=== PATIENT | male | born 1965 | race Caucasian/White ===

== ENCOUNTER 2024-05-11 05:41 | Inpatient (IN) ==
[2024-05-11 06:35] LABS: Basophils # (auto) 0.03 K/uL (0.00-0.20); Basophils % (auto) 0.4 %; Eosinophils # (auto) 0.02 K/uL (0.00-0.50); Eosinophils % (auto) 0.3 %; Hematocrit (blood only) 48.6 % (42.0-52.0); Hemoglobin 17.5 g/dl (14.0-18.0); Immature Granulocytes # (auto) 0.05 K/uL (0.01-0.20); Immature Granulocytes % (auto) 0.7 %; Lymphocytes % (auto) 13.7 %; Mean Corpuscular Hemoglobin 34.8 pg (25.0-34.0); Mean Corpuscular Volume 96.6 fL (80.0-100.0); Mean Platelet Volume 10.8 fL (9.4-12.4); Monocytes # (auto) 0.58 K/uL (0.11-0.59); Monocytes % (auto) 7.9 %; Neutrophils # (auto) 5.64 K/uL (1.40-6.50); Platelet Count 181 K/uL (130-400); RDW Coefficient of Variation 13.2 % (11.5-14.5); Red Blood Count 5.03 M/uL (4.70-6.10); White Blood Count 7.32 K/ul (4.8-10.8)
[2024-05-11 06:55] LABS: Calcium 9.8 mg/dl (8.6-10.3); Creatinine Clr Calc Pharmacy 101.4 ml/min; Potassium 3.6 mmol/L (3.5-5.1)
[2024-05-11 07:02] LABS: Troponin I High Sensitivity 7.4 pg/ml (0-20)
--- NOTE | 2024-05-11 07:05 | Emergency Department Note ---
Impression & Plan Acute pancreatitis, Acute upper abdominal pain, Vomiting ED Provider Note NAME: ODELL KUMAR AGE: 58 SEX: Male INFORMANT: Patient ED PROVIDER(S): Sidney Reeves MD CHIEF COMPLAINT: Abdominal pain PLAN: Disposition: Admitted Outpatient prescription management: none Referral: None MEDICAL DECISION MAKING: Patient presented because of abdominal pain. He had nausea and vomiting. Patient was treated with IV hydration, Zofran and Dilaudid. On reassessment he was doing better. Patient was also given Ativan secondary to his alcohol issues. Patient was treated with thiamine and folate. Patient was found to have a significant elevation of his lipase consistent with pancreatitis. LFTs were borderline. Patiently further evaluation and management in the hospital. BioFire testing was negative. I did consult with the [facility] hospitalist service and discussed case with Dr. Yin. We did discuss ordering an ultrasound of the gallbladder to facilitate his admission. I did do this. Patient was evaluated by the hospitalist service and admitted for further management. Care/management discussed with: apartment leasing manager Level of care consideration(s): After review of the information above and other included data, I feel the patient requires escalation of care to admission Triage Nursing notes: reviewed and agree them. Vital Signs: reviewed and remarkable for hypertension Additional History obtained from: none Chronic Medical/Social Conditions affecting care: Alcohol abuse Prior/ Outside/ External records reviewed: none Differential Diagnosis: Etiologies such as gastroenteritis, pancreatitis, food borne illness, infections, appendicitis, diverticulitis, inflammatory bowel disease, GI bleed, biliary pathology, as well as others were entertained. Diagnostics, independently interpreted by me: ECG: Twelve-lead ECG reveals sinus tachycardia [address] elevation or depression. Cardiac Monitoring: Cardiac monitoring ordered by me: The patient was placed on continuous cardiac monitoring and observed. It revealed a tachycardic sinus rhythm at 113 beats per minute without ectopy or evidence of dysrhythmia. Medical decision rules: none Imaging studies: CT scan of the abdomen pelvis reveals findings consistent with pancreatitis. I refer you to the EMR for further details. HPI: 58 year old Male arrives for evaluation of abdominal pain. This started yesterday and is persisting. The patient also notes the following associated symptoms, vomiting, nausea, bloating. The patient has found no relieving factors. Current pain is rated as 9/10. Pt denies LOC, headache, fevers, chills, diaphoresis, visual changes, neck pain, chest pain, breathing difficulties, back pain, melena, hematochezia, urinary symptoms, numbness, weakness, lymphadenopathy, rash, or other complaints. PAST MEDICAL HISTORY: See Below, denies PAST SURGICAL HISTORY: See Below, THR SOCIAL HISTORY: See Below, occ etoh HOME MEDICATIONS: See Below ALLERGIES: See Below VITALS: See Below PHYSICAL EXAMINATION: GENERAL: Awake, alert, mildly ill appearing, mild distress HEAD: Normocephalic, atraumatic. No edema. EYES: Normal conjunctiva. Sclera non-icteric. OROPHARYNX: Lips, tongue, and mucosa unremarkable. No erythema or exudate. NECK: Supple. Inspection normal. Non-tender. No nuchal rigidity. FROM. No adenopathy. RESPIRATORY: CTA bilaterally. No wheezes rales or rhonchi. Normal respiratory effort. CARDIAC: Borderline tachycardic rate. Normal rhythm. No murmurs. No rubs. GI: Soft, mildly distended. Epigastric tenderness to palpation. No rebound or guarding. MUSCULOSKELETAL: Atraumatic. No edema. NEURO: Normal sensorium. Speech normal. No sensory or motor deficits. SKIN: No rash or jaundice noted PROCEDURES: none CRITICAL CARE: none OBSERVATION NOTE: none Past Med/Surg History Problem List (Updated 05/11/24 @ 17:04 by Sidney Reeves MD) Transaminitis Alkaline phosphatase elevation Metabolic acidosis Hypertension Alcoholism /alcohol abuse Acute pancreatitis (Acute) Vomiting (Acute) Acute upper abdominal pain (Acute) Social History Smoking Status: Never smoker Tobacco Type: Smokeless Tobacco (Dip or Chew) Hx Alcohol Use: Yes Alcohol type: beer Hx Substance Use: No Preferred Language: Moldovan Communication Ability: Effective Investment Executive Required: No Beliefs That Will Affect Care: None Current Living Situation: Alone Feels Safe at Home: Yes Assistive Devices: None Allergies Allergies Allergy/AdvReac Type Severity Reaction Status Date / Time shellfish derived Allergy Severe Anaphylaxis Verified 05/11/24 08:44 Home Meds Home Medications Medication Instructions Recorded Confirmed amino acids (Amino Acid capsule) 1 cap PO DAILY 05/11/24 05/11/24 cholecalciferol (vitamin D3) 25 25 mcg PO DAILY 05/11/24 05/11/24 mcg (1,000 unit) tablet (Vitamin D3) multivitamin 1 tab PO DAILY 05/11/24 05/11/24 Results & Data (ED) Vital Signs Vital Signs - 24 hr 05/11/24 05:47 05/11/24 05:57 05/11/24 06:16 Temperature Temperature Source Pulse Rate 134 H 132 H 105 H Pulse Rate [Right Finger] Pulse Rhythm Regular Pulse Strength Normal Respiratory Rate 23 Respiratory Effort / Characteristics Non-Labored Spontaneous Respiratory Depth Normal Respiratory Pattern Regular Blood Pressure 183/146 H Blood Pressure [Right Arm] Blood Pressure Mean 158 Blood Pressure Mean [Right Arm] Blood Pressure Position Sitting Pulse Oximetry 96 96 Oxygen Delivery Method Room Air Room Air Sepsis Recent Fever Within 48 Hours No Sepsis New/Unexplained Change in Mental Status N/A Sepsis Action Taken by Nursing No Action Required 05/11/24 06:44 05/11/24 06:46 05/11/24 07:30 Temperature 36.4 C L 36.4 C L Temperature Source Oral Oral Pulse Rate Pulse Rate [Right Finger] 112 H 104 H Pulse Rhythm Pulse Strength Respiratory Rate 18 17 Respiratory Effort / Characteristics Respiratory Depth Normal Respiratory Pattern Blood Pressure Blood Pressure [Right Arm] 158/118 H 143/106 H Blood Pressure Mean Blood Pressure Mean [Right Arm] 131 118 Blood Pressure Position Pulse Oximetry 96 94 Oxygen Delivery Method Room Air Sepsis Recent Fever Within 48 Hours Sepsis New/Unexplained Change in Mental Status Sepsis Action Taken by Nursing Laboratory Data 05/11/24 06:02 05/11/24 14:43 Lab Results 05/11/24 05/11/24 Range/Units 06:00 06:02 WBC 7.32 (4.8-10.8) K/ul RBC 5.03 (4.70-6.10) M/uL Hgb 17.5 (14.0-18.0) g/dl Hct 48.6 (42.0-52.0) % MCV 96.6 (80.0-100.0) fL MCH 34.8 H (25.0-34.0) pg MCHC 36.0 (32.0-36.0) g/dL RDW Std Deviation 47.0 H (36.4-46.3) fL RDW Coeff of Ileana 13.2 (11.5-14.5) % Plt Count 181 (130-400) K/uL MPV 10.8 (9.4-12.4) fL Immature Gran % (Auto) 0.7 % Neut % (Auto) 77.0 % Lymph % (Auto) 13.7 % [place] % (Auto) 7.9 % Eos % (Auto) 0.3 % Baso % (Auto) 0.4 % Neut # (Auto) 5.64 (1.40-6.50) K/uL Lymph # (Auto) 1.00 L (1.20-3.40) K/uL [place] # (Auto) 0.58 (0.11-0.59) K/uL Eos # (Auto) 0.02 (0.00-0.50) K/uL Baso # (Auto) 0.03 (0.00-0.20) K/uL Immature Gran # (Auto) 0.05 (0.01-0.20) K/uL Sodium 135 L (136-145) mmol/L Potassium 3.6 (3.5-5.1) mmol/L Chloride 104 (98-107) mmol/L Carbon Dioxide 11 L (21-32) mmol/L Anion Gap 20 H (3-11) BUN 4 L (6-23) mg/dl Creatinine 0.99 (0.6-1.4) mg/dl Est Cr Clr Drug Dosing 101.4 ml/min eGFR 88.85 BUN/Creatinine Ratio 4.0 L (10-20) Glucose 130 H (70-99(Fasting)) mg/dl Calcium 9.8 (8.6-10.3) mg/dl Magnesium 1.8 (1.7-2.4) mg/dl Total Bilirubin 1.3 H (0.2-1.0) mg/dl AST 78 H (13-39) U/L ALT 103 H (7-52) U/L Alkaline Phosphatase 71 (34-104) U/L Troponin I High Sens 7.4 (0-20) pg/ml Total Protein 7.3 (6.0-8.3) gm/dl Albumin 3.7 (3.4-5.0) gm/dl Globulin 3.6 (2.5-4.0) gm/dl Albumin/Globulin Ratio 1.0 (0.9-2) Triglycerides 478 H (0-150) mg/dl Lipase 3343 H (11-82) U/L Adenovirus (PCR) Not Detected (NotDetected) B. pertussis DNA (PCR) Not Detected (NotDetected) B.parapertussis DNA PCR Not Detected (NotDetected) C. pneumoniae DNA (PCR) Not Detected (NotDetected) Coronavirus OC43 (PCR) Not Detected (NotDetected) Coronavirus HKU1 (PCR) Not Detected (NotDetected) Coronavirus 229E (PCR) Not Detected (NotDetected) SARS-CoV-2 (PCR) Not Detected (NotDetected) Coronavirus NL63 (PCR) Not Detected (NotDetected) Human Metapneumovir PCR Not Detected (NotDetected) Influenza Type A (PCR) Not Detected (NotDetected) Influenza Type B (PCR) Not Detected (NotDetected) M. pneumoniae (PCR) Not Detected (NotDetected) Parainfluenza 1 (PCR) Not Detected (NotDetected) Parainfluenza 2 (PCR) Not Detected (NotDetected) Parainfluenza 3 (PCR) Not Detected (NotDetected) Parainfluenza 4 (PCR) Not Detected (NotDetected) RSV (PCR) Not Detected (NotDetected) Entero/Rhino (PCR) Not Detected (NotDetected) Administered Medications Chlordiazepoxide HCl (Chlordiazepoxide Hcl 25 Mg Cap) 25 mg PO Q6H [facility] Stop: 05/12/24 04:01 Last Admin: 05/11/24 16:07 Dose: 25 mg Documented By: JUAN JOSE Admin: 05/11/24 10:35 Dose: 25 mg Documented By: AVNI Hydromorphone HCl (Hydromorphone Inj 0.5 Mg/0.5 Ml Syr) 0.5 mg IV Q4H PRN PRN Reason: Severe Pain (Scale 7, 8, 9,10) Stop: 05/25/24 11:34 Last Admin: 05/11/24 12:06 Dose: 0.5 mg Documented By: JUAN JOSE Lactated Ringer's (Lr) 1,000 mls @ 200 mls/hr IV .Q5H [facility] Stop: 05/12/24 08:29 Last Admin: 05/11/24 14:06 Dose: 200 mls/hr Documented By: JUAN JOSE Infusion: 05/11/24 14:06 Dose: Infused Documented By: JUAN JOSE Infusion: 05/11/24 10:40 Dose: 200 mls/hr Documented By: Admin: 05/11/24 09:35 Dose: 250 mls/hr Documented By: AVNI Pantoprazole Sodium (Protonix) 40 mg in 10 mls @ 5 mls/min IV BID [facility] Stop: 06/10/24 09:59 Last Admin: 05/11/24 10:01 Dose: 5 mls/min Documented By: AVNI Piperacillin Sod/Tazobactam Sod (Zosyn) 4.5 gm in 100 mls @ 25 mls/hr IV Q8H [facility]; Protocol Stop: 05/21/24 13:59 Last Admin: 05/11/24 14:05 Dose: 25 mls/hr Documented By: JUAN JOSE Sodium Bicarbonate 150 meq/ (Sterile Water) 1,150 mls @ 75 mls/hr IV .[id number] [facility] Stop: 06/10/24 09:59 Last Admin: 05/11/24 12:09 Dose: 75 mls/hr Documented By: JUAN JOSE Lorazepam (Lorazepam 2 Mg/1 Ml Vial) 2 mg IV UD PRN; Protocol PRN Reason: EtOH Withdrawal AWSS Score 8,9 Stop: 06/10/24 09:08 Last Admin: 05/11/24 16:19 Dose: 2 mg Documented By: JUAN JOSE Admin: 05/11/24 12:08 Dose: 2 mg Documented By: JUAN JOSE Multivitamins (Multivitamin Tab) 1 tab PO QAM [facility] Stop: 06/10/24 11:34 Last Admin: 05/11/24 12:09 Dose: Not Given Documented By: JUAN JOSE Discontinued Medications Hydralazine HCl (Hydralazine Hcl 20 Mg/Ml Vial) 5 mg IV NOW ONE Stop: 05/11/24 09:10 Last Admin: 05/11/24 09:36 Dose: 5 mg Documented By: AVNI Hydromorphone HCl (Hydromorphone Inj 0.5 Mg/0.5 Ml Syr) 0.5 mg IV Q15M PRN PRN Reason: Pain Stop: 05/25/24 07:04 Last Admin: 05/11/24 09:22 Dose: 0.5 mg Documented By: Admin: 05/11/24 07:16 Dose: 0.5 mg Documented By: AVNI Sodium Chloride (Nss) 1,000 mls @ 999 mls/hr IV .Q1H1M ONE Stop: 05/11/24 08:05 Last Infusion: 05/11/24 08:45 Dose: Infused Documented By: Admin: 05/11/24 07:16 Dose: 999 mls/hr Documented By: AVNI Sodium Chloride (Nss) 1,000 mls @ 200 mls/hr IV .Q5H [facility] Stop: 05/12/24 07:29 Last Admin: 05/11/24 08:43 Dose: Not Given Documented By: AVNI Thiamine HCl 200 mg/ Sodium (Chloride) 52 mls @ 210 mls/hr IV NOW STA Stop: 05/11/24 07:37 Last Infusion: 05/11/24 08:18 Dose: Infused Documented By: Admin: 05/11/24 07:51 Dose: 210 mls/hr Documented By: AVNI Folic Acid 1 mg/ Syringe 10 mls @ 5 mls/min IV NOW STA Stop: 05/11/24 07:24 Last Admin: 05/11/24 07:51 Dose: 5 mls/min Documented By: AVNI Piperacillin Sod/Tazobactam Sod (Zosyn) 4.5 gm in 100 mls @ 200 mls/hr IV NOW STA; Protocol Stop: 05/11/24 10:13 Last Infusion: 05/11/24 12:01 Dose: Infused Documented By: JUAN JOSE Admin: 05/11/24 10:01 Dose: 200 mls/hr Documented By: AVNI Ioversol (Optiray 320 100ml) 94 ml IV ONCE ONE Stop: 05/11/24 08:11 Last Admin: 05/11/24 08:11 Dose: 94 ml Documented By: LILY Lorazepam (Lorazepam 2 Mg/1 Ml Vial) 0.5 mg IV NOW STA Stop: 05/11/24 07:24 Last Admin: 05/11/24 07:42 Dose: 0.5 mg Documented By: AVNI Ondansetron HCl (Ondansetron Inj 2 Mg/Ml 2 Ml Vial) 4 mg IV NOW STA Stop: 05/11/24 07:06 Last Admin: 05/11/24 07:16 Dose: 4 mg Documented By: AVNI Imaging Data Radiologist's Impression: Abdomen/Pelvis CT 05/11/24 07:[address] WITH IV CONTRAST CT DOSE: 1565.86 mGy.cm HISTORY: Acute upper abdominal pain patient with history of acute pancreatitis pancreatitis, upper abd pain TECHNIQUE: Multiaxial CT images of the abdomen and pelvis were performed following the IV administration of 94 cc of Optiray, A dose lowering technique was utilized adhering to the principles of ALARA. COMPARISON STUDY: None. FINDINGS: Cardiomegaly with coronary artery calcifications. Mild subsegmental bibasilar atelectasis. No pneumatosis or pneumoperitoneum. Hepatomegaly with hepatic steatosis. Patency of the hepatic and portal veins. Unremarkable spleen and adrenal glands. Mild gallbladder wall thickening. No cholelithiasis or biliary ductal dilation. Unremarkable kidneys. No hydronephrosis. Subcentimeter hypodense focus of the superior pole right kidney, too small to characterize. Decompressed urinary bladder with wall thickening. Pelvic structures are partially obscured by the total joint arthroplasties of the hips. Small fat filled inguinal hernias. Atherosclerosis of the aorta without aneurysm. Subcentimeter retroperitoneal lymph nodes. 1.1 x 1.0 cm nodules in the upper abdomen image 91 series 3 is suggestive of an additional lymph node. No bowel obstruction. There is mild wall thickening noted within the distal stomach and duodenum. No bowel obstruction. Colonic diverticulosis without acute diverticulitis. Trace abdominal ascites. There is interstitial and peripancreatic edema with homogeneous enhancement of the pancreas. No pancreatic ductal dilation or peripancreatic fluid collection. No acute fracture. Minimal superior endplate compression at T12 is likely chronic IMPRESSION: 1. Findings compatible with acute interstitial edematous pancreatitis. No pancreatic ductal dilation or acute peripancreatic fluid collections. 2. Reactive edema within the lesser sac/mesentery with trace abdominal pelvic ascites. 3. Wall thickening of the distal stomach and duodenum is likely reactive. A primary duodenitis/gastritis considered less likely. 4. No bowel obstruction or pneumoperitoneum. 5. Hepatomegaly with hepatic steatosis. 6. Normal appendix. ACT 112: Negative or not required by law. The above report was generated using voice recognition software. It may contain grammatical, syntax or spelling errors. Electronically signed by: Catalino Lei M.D. 05/11/2024 8:38 AM Gallbladder Ultrasound 05/11/24 08:27 ABDOMINAL ULTRASOUND, RIGHT UPPER QUADRANT HISTORY: Acutely elevated LFTs pancreatitis, elevated LFTs. COMPARISON: CT of same day FINDINGS: Pancreas: The pancreas is mostly obscured by bowel gas. Liver: Increased echogenicity measuring up to 20 cm in length. No marginal nodularity or mass. Gallbladder: Borderline wall thickening measuring up to 3 mm. No shadowing cholelithiasis. Negative sonographic Stinson's sign. No definite pericholecystic edema. CBD: 4 mm Right kidney: No hydronephrosis. IMPRESSION: 1. Nonspecific borderline gallbladder wall thickening without cholelithiasis. 2. Hepatic steatosis. 3. No biliary ductal dilation. 4. Please refer to the same day CT abdomen and pelvis study for discussion of the acute pancreatitis. ACT 112: Negative or not required by law. Electronically signed by: Catalino Lei M.D. 05/11/2024 10:25 AM Discharge Plan Visit Data Chief Complaint: Flu Like Symptoms Stated Complaint: ABD PAIN, SHAKEY, VOMITING, SWEATING ED Provider: Sidney Reeves Discharge Problem: Acute pancreatitis, Acute upper abdominal pain, Vomiting Patient Disposition: Admitted As Inpatient Discharge Instructions Interventions: ED Discharge Assessment Last Done: 05/11/24 09:51
[2024-05-11 07:12] LABS: Albumin Level 3.7 gm/dl (3.4-5.0); Bilirubin,Total 1.3 mg/dl (0.2-1.0); Globulin 3.6 gm/dl (2.5-4.0); Magnesium 1.8 mg/dl (1.7-2.4); Total Protein 7.3 gm/dl (6.0-8.3)
[2024-05-11 07:16] LABS: Adenovirus PCR Not Detected (NotDetected); Bordetella parapertussis PCR Not Detected (NotDetected); Bordetella pertussis PCR Not Detected (NotDetected); Chlamydia pneumoniae PCR Not Detected (NotDetected); Coronavirus 229E PCR Not Detected (NotDetected); Coronavirus CoV-2 (COVID19)PCR Not Detected (NotDetected); Coronavirus HKU1 PCR Not Detected (NotDetected); Coronavirus NL63 PCR Not Detected (NotDetected); Coronavirus OC43PCR Not Detected (NotDetected); Human Metapneumovirus PCR Not Detected (NotDetected); Influenza A PCR Not Detected (NotDetected); Influenza B PCR Not Detected (NotDetected); Mycoplasma pneumoniae PCR Not Detected (NotDetected); Parainfluenza Virus 1 PCR Not Detected (NotDetected); Parainfluenza Virus 2 PCR Not Detected (NotDetected); Parainfluenza Virus 3 PCR Not Detected (NotDetected); Parainfluenza Virus 4 PCR Not Detected (NotDetected); Respiratory Syncytial VirusPCR Not Detected (NotDetected); Rhinovirus/Enterovirus PCR Not Detected (NotDetected)
[2024-05-11] MEDS: ONDANSETRON INJ 2 MG/ML 2 ML VIAL IV STA (07:16)
[2024-05-11] MEDS: SODIUM CHLORIDE 0.9% 1,000 ML IV ONE (07:16)
[2024-05-11] MEDS: HYDROmorphone INJ 0.5 MG/0.5 ML SYR IV PRN ×2 (07:16→12:06)
[2024-05-11] MEDS: LORazepam 2 MG/1 ML VIAL IV STA ×3 (07:42→23:18)
[2024-05-11] MEDS: FOLIC ACID 1 MG in SYRINGE 9.8 ML IV STA (07:51)
[2024-05-11] MEDS: THIAMINE HCL 200 MG in SODIUM CHLORIDE 0.9% 50 ML IV STA (07:51)
[2024-05-11] MEDS: OPTIRAY 320 100ml IV ONE (08:11)
--- NOTE | 2024-05-11 08:41 | CT Scan Report ---
ABDOMEN AND PELVIS CT WITH IV CONTRAST CT DOSE: 1565.86 mGy.cm HISTORY: Acute upper abdominal pain patient with history of acute pancreatitis pancreatitis, upper a bd pain TECHNIQUE: Multiaxial CT images of the abdomen and pelvis were performed following the IV administrat ion of 94 cc of Optiray, A dose lowering technique was utilized adhering to the principles of ALARA. COMPARISON STUDY: None. FINDINGS: Cardiomegaly with coronary artery calcifications. Mild subsegmental bibasilar atelectasis. No pneumatosis or pneumoperitoneum. Hepatomegaly with hepatic steatosis. Patency of the hepatic and p ortal veins. Unremarkable spleen and adrenal glands. Mild gallbladder wall thickening. No cholelithia sis or biliary ductal dilation. Unremarkable kidneys. No hydronephrosis. Subcentimeter hypodense focu s of the superior pole right kidney, too small to characterize. Decompressed urinary bladder with wal l thickening. Pelvic structures are partially obscured by the total joint arthroplasties of the hips. Small fat filled inguinal hernias. Atherosclerosis of the aorta without aneurysm. Subcentimeter retr operitoneal lymph nodes. 1.1 x 1.0 cm nodules in the upper abdomen image 91 series 3 is suggestive of an additional lymph node. No bowel obstruction. There is mild wall thickening noted within the distal stomach and duodenum. No bowel obstruction. Colonic diverticulosis without acute diverticulitis. Trace abdominal ascites. Ther e is interstitial and peripancreatic edema with homogeneous enhancement of the pancreas. No pancreati c ductal dilation or peripancreatic fluid collection. No acute fracture. Minimal superior endplate co mpression at T12 is likely chronic IMPRESSION: 1. Findings compatible with acute interstitial edematous pancreatitis. No pancreatic ductal dilation or acute peripancreatic fluid collections. 2. Reactive edema within the lesser sac/mesentery with trace abdominal pelvic ascites. 3. Wall thickening of the distal stomach and duodenum is likely reactive. A primary duodenitis/gastri tis considered less likely. 4. No bowel obstruction or pneumoperitoneum. 5. Hepatomegaly with hepatic steatosis. 6. Normal appendix. ACT 112: Negative or not required by law. The above report was generated using voice recognition software. It may contain grammatical, syntax o r spelling errors. Electronically signed by: Catalino Lei M.D. 05/11/2024 8:38 AM
[2024-05-11] MEDS: SODIUM CHLORIDE 0.9% 1,000 ML IV SCH (08:43)
[2024-05-11] MEDS ORDERED: chlordiazePOXIDE ALCOHOL WITHDRAWL 25MG PO STA (09:09)
[2024-05-11] MEDS ORDERED: Ativan IV Alcohol Withdrawal--Active Protocol IV PRN (09:09)
[2024-05-11] MEDS ORDERED: LORazepam 1 MG/1 ML SYR ED Inj Use IV PRN (09:09)
[2024-05-11] MEDS ORDERED: LORazepam 2 MG/1 ML VIAL IV PRN (09:09)
--- NOTE | 2024-05-11 09:20 | History & Physical Report ---
Date of Service May 11, 2024 Assessment & Plan (1) Acute pancreatitis: Plan: likely secondary to alcoholism r/o Cholelithiasis r/o hypertriglyceridemia CT abd: 1. Findings compatible with acute interstitial edematous pancreatitis. No pancreatic ductal dilation or acute peripancreatic fluid collections. 2. Reactive edema within the lesser sac/mesentery with trace abdominal pelvic ascites. 3. Wall thickening of the distal stomach and duodenum is likely reactive. A primary duodenitis/gastritis considered less likely. 4. No bowel obstruction or pneumoperitoneum. 5. Hepatomegaly with hepatic steatosis. 6. Normal appendix. ACT 112: Negative or not required by law. LR 200cc/hr NPO PRN Morphine, Dilaudid Gallbladder US IV Zosyn monitor electrolytes closely GI consult (2) Metabolic acidosis: Plan: VBG stat: Bicarb 10, pH 7.19 Lactic acid: Negative Bicarb drip ordered (3) Alcoholism /alcohol abuse: Plan: Alc withdrawal protocol- Librium, Ativan PRN Monitor closely (4) Hypertension: Plan: PRN hydralazine Monitor closely History of Present Illness Primary Care Provider: Elena Kirkland MD 58-year-old male with no past medical history, presenting with abdominal pain. Patient states that he drinks 6-8 shots of alcohol about 3 times per week. Last drink was 2 days ago. Yesterday, patient started to have upper abdominal pain, pressure, which persisted till today. Denies fevers or chills, has intermittent nausea, no chest pain, shortness of breath, etc. Lipase 3000 CT abdomen pelvis: Acute interstitial edematous pancreatitis On exam, patient seen resting in bed, not in distress. Reports he still having upper epigastric and mid abdominal pain. Denies tremors, sweating, hallucinations, confusion. Allergies Allergy/AdvReac Type Severity Reaction Status Date / Time shellfish derived Allergy Severe Anaphylaxis Verified 05/11/24 08:44 Home Medications Medication Instructions Recorded Confirmed Type amino acids (Amino Acid capsule) 1 cap PO DAILY 05/11/24 05/11/24 History cholecalciferol (vitamin D3) 25 25 mcg PO DAILY 05/11/24 05/11/24 History mcg (1,000 unit) tablet (Vitamin D3) multivitamin 1 tab PO DAILY 05/11/24 05/11/24 History Past Med/Surg History Problem List (Updated 05/11/24 @ 15:22 by Fausto Vallecillo, DO) Transaminitis Alkaline phosphatase elevation Metabolic acidosis Hypertension Alcoholism /alcohol abuse Acute pancreatitis Vomiting (Acute) Acute upper abdominal pain (Acute) Social History Smoking Status: Never smoker Tobacco Type: Smokeless Tobacco (Dip or Chew) Hx Alcohol Use: Yes Alcohol type: beer Hx Substance Use: No Preferred Language: Kittitian Communication Ability: Effective Taxi Servicer Required: No Beliefs That Will Affect Care: None Current Living Situation: Alone Feels Safe at Home: Yes Assistive Devices: None Review of Systems Review of Systems: all noted and negative except for above Physical Exam Physical Exam: General- oriented x 3, not in distress, speaks in sentences with no effort or accessory muscle use Head- atraumatic Eyes- PERRL, EOMI, anicteric ENT- oropharynx clear Neck- supple, no JVD, no adenopathy, no thyromegaly; carotids +2/2, no bruits appreciated Lungs- clear to auscultation bilaterally, no rales/wheezes Heart- normal rate, regular rhythm; no murmur, no gallop, no rub appreciated Abdomen- normal bowel sounds, nondistended, soft, Mild epigastric tenderness,, no masses or hepatosplenomegaly Extremities- no pretibial edema, no calf tenderness; peripheral pulses intact Mild bilateral hand tremors Neuro- alert, oriented x 3; CN 2-12 grossly intact; motor 5/5 bilaterally;sensation 100% on all extremities; no other gross focal neurologic deficits Skin- warm & dry Results & Data Results & Data Vital Signs (Past 12 Hours) Vital Signs Temp Pulse Pulse Resp BP BP Pulse Ox 05/11/24 07:30 104 H 17 143/106 H 94 05/11/24 06:46 36.4 C L 112 H 18 158/118 H 96 05/11/24 06:44 36.4 C L 05/11/24 06:16 105 H 96 05/11/24 05:57 132 H 05/11/24 05:47 134 H 23 183/146 H 96 O2 Del Method 05/11/24 07:30 Room Air 05/11/24 06:46 05/11/24 06:44 05/11/24 06:16 Room Air 05/11/24 05:57 05/11/24 05:47 Room Air all noted and reviewed including below Code Status & VTE Plan VTE Prophylaxis Plan VTE Prophylaxis will be ordered: Yes
[2024-05-11 09:25] LABS: Base Excess VBG -16.7 mEq/L; HCO3 VBG 10 mmol/L; Oxygen Saturation VBG 98.8 %; PCO2 VBG 26 mmHg (38-50); PO2 VBG 103 mmHg; pH VBG 7.19 (7.36-7.41)
[2024-05-11 09:35] LABS: Appearance Urine Clear (Clear); Bacteria Urine Automated None Seen (None Seen); Bilirubin Urine Negative (Negative); Blood Urine Trace (Negative); Cast Urine Automated >20 /lpf (0-2); Color Urine Dark Yellow; Epithelial Cell Urine Auto 0-2 /hpf (0-2); Glucose Urine UA Negative (Negative); Granular Casts Urine Present /lpf (None Prsent); Hyaline Casts Urine Present /lpf (None Presnt); Ketones Urine 4+ (Negative); Leukocyte Esterase Urine Negative (Negative); Nitrite Urine Negative (Negative); Protein Urine 2+ (Negative); RBC Urine Automated 0-2 /hpf (0-2); Specific Gravity Urine > 1.045 (1.000-1.030); Urobilinogen Urine Negative (Negative); WBC Urine Automated 0-5 /hpf (0-5); pH Urine 5.5 (4.5-7.5)
[2024-05-11] MEDS: LACTATED RINGER'S 1,000 ML IV SCH (09:35)
[2024-05-11] MEDS: hydrALAZINE HCL 20 MG/ML VIAL IV ONE (09:36)
[2024-05-11] MEDS: 4.5GM X1 IV STA (10:01)
[2024-05-11] MEDS: PANTOprazole 40 MG/10 ML SYR IV SCH (10:01)
--- NOTE | 2024-05-11 10:26 | Ultrasound Report ---
ABDOMINAL ULTRASOUND, RIGHT UPPER QUADRANT HISTORY: Acutely elevated LFTs pancreatitis, elevated LFTs. COMPARISON: CT of same day FINDINGS: Pancreas: The pancreas is mostly obscured by bowel gas. Liver: Increased echogenicity measuring up to 20 cm in length. No marginal nodularity or mass. Gallbladder: Borderline wall thickening measuring up to 3 mm. No shadowing cholelithiasis. Negative s onographic Sitnson's sign. No definite pericholecystic edema. CBD: 4 mm Right kidney: No hydronephrosis. IMPRESSION: 1. Nonspecific borderline gallbladder wall thickening without cholelithiasis. 2. Hepatic steatosis. 3. No biliary ductal dilation. 4. Please refer to the same day CT abdomen and pelvis study for discussion of the acute pancreatitis. ACT 112: Negative or not required by law. Electronically signed by: Catalino Lei M.D. 05/11/2024 10:25 AM
[2024-05-11] MEDS: chlordiazePOXIDE HCl 25 MG CAP PO SCH (10:35)
--- OUTSIDE RECORDS SUMMARY | 2024-05-11 11:32 | External Medical Summary | Summary of Care ---
Author Name Unknown Organization [facility] Address [address] [place] [address] Phone [phone] Care Team Providers Care Flavoring Oil Filterer Name Role Phone Shilo Liao MD Primary Care Provider [phone] Reason for Referral * Evaluate & Treat - Unlimited Visits (Within 30 days (routine)) - Authorized Specialty Diagnoses / Procedures Referred By Contcherry t Referred To Contact Physical Therapy / Physical Medicine And Rehab Diagnoses Hip pain, right Shilo Liao MD [address] [place] [address] Referral ID Status Reason Start Date Expiration Date Visits Requested Visits Authorized [id number] Authorized Specialty Services Required 11/26/2023 999 999 Question Answer Referral Priority Within 30 days (routine) Where should this appointment be scheduled? [facility] Comments Right hip pain she thinks but it can be for both hips Reason for Visit * Reason Onset Date Comments Referral 11/26/2023 Encounter Details Date Type Department Care Team (Late st Contact Info) Description 11/26/2023 Telephone [facility] [address] [place] [address] Shilo Liao MD [address] [place] [address] Referral Allergies No known active allergiesdocumented as of this encounter (statuses as of 11/26/2023) Medications Medication Sig Dispensed Refills Start Date End Date Status Vitamin D3 1.25 MG (91113 UT) Oral CapsuleIndications: Low vitamin D level Take 1 Capsule by mouth once a week. 12 Capsule 1 09/07/2022 Active Calcium 500 MG Oral Tablet Take 1 Tablet by mouth in the morning and 1 Tablet before bedtime. With food.. 180 Tablet 3 09/07/2022 Active 27-0.8 MG Oral Tablet Take 1 Tablet by mouth daily at noon - take for 2 months after your surgery for anemia 60 Tablet 12/27/2022 Active Aspirin 81 MG Oral Tablet Delayed Release Take 1 Tablet by mouth in the morning and 1 Tablet before bedtime. 90 Tablet 12/27/2022 Active Docusate Sodium 100 MG Oral Capsule (Colace) Take 1 Capsule by mouth 2 times a day as needed for Constipation. 10 Capsule 12/27/2022 Active Naproxen 375 MG Oral Tablet (Naprosyn) Take 1 Tablet by mouth 2 times a day with morning and evening meals. 30 Tablet 12/27/2022 Active Acetaminophen 500 MG Oral Capsule Take 1 Capsule by mouth every 6 hours as needed for Pain, Mild or Pain, Moderate. 60 Capsule 12/27/2022 Active Omeprazole 20 MG Oral Capsule Delayed Release (PriLOSEC) Take 1 Capsule by mouth in the morning. Do not start before December 28, 2022. 30 Capsule 12/28/2022 Active oxyCODONE HCl 5 MG Oral Tablet (Oxy IR) Take 1 Tablet by mouth every 6 hours as needed for Pain, Severe. 30 Tablet 01/03/2023 Active Cyclobenzaprine HCl 10 MG Oral Tablet (Flexeril) Take 1 Tablet by mouth in the morning and 1 Tablet at noon and 1 Tablet before bedtime. 30 Tablet 01/03/2023 Active Rosuvastatin Calcium 10 MG Oral Tablet (Crestor)Indication s:Hyperlipidemia with target LDL less than 100 Take 1 Tablet by mouth in the morning. 30 Tablet 1 01/06/2023 Active Vitamin D3 50 MCG (2000 UT) Oral Tablet Take 1 Tablet by mouth in the morning. 90 Tablet 3 01/07/2023 Active methylPREDNISolone 4 MG Oral Tablet Therapy Pack (Medrol Dosepack) follow package directions 21 Tablet 02/07/2023 Active documented as of this encounter (statuses as of 11/26/2023) Active Problems Problem Noted Date Diagnosed Date Postoperative anemia due to acute blood loss S/P total right hip arthroplasty 12/27/2022 S/P total hip arthroplasty 09/14/2022 Class 1 obesity without seri ous comorbidity with body mass index (BMI) of 31.0 to 31.9 in adult 09/07/2022 Primary osteoarthritis of left hip 09/07/2022 Vitamin D deficiency 09/07/2022 Hyperlipidemia 09/07/2022 Essential tremor 08/25/2022 documented as of this encounter (statuses as of 11/26/2023) Immunizations Name Administration Dates Next Due TDAP (age 10 and older)(Boostrix) 06/23/2022 documented as of this encounter Social History Tobacco Use Types Packs/Day Years Used Date Smoking Tobacco: Former Cigarettes Passive Smoke Exposure: Past Smokeless Tobacco: Former Chew Alcohol Use Standard Drinks/Week Comments Yes 3 (1 standard drink = 0.6 oz pur e alcohol) occassionally Personal Safety Answer Date Recorded Do you feel unsafe or have concerns for your saf ety? No 12/26/2022 Do you have concerns for you r family's safety? (Household - for ages 0-17 years) Not on file 12/26/2022 Utilities Answer Date Recorded Do you have trouble paying y our heating, water, or electric bill? No 12/26/2022 Is your family able to pay t he heat, water, or electric bill? (Household - for ages 0-17 years) Not on file 12/26/2022 Does your family have access to good internet? (Household - for ages 0-17 years) Not on file 12/26/2022 Social Connections Answer Date Recorded How often do you feel lonely or isolated from those around you? (Adult - for ages 18 years and over) Not on file 09/18/2023 Transportation Needs Answer Date Record ed READ ONLY Do you have troubl e getting a ride to medical visits or work? Never True 12/26/2022 Does your family have a hard time getting a ride to doctors visits? (Household - for ages 0-17 years) Not on file 12/26/2022 Has lack of transportation k ept you from medical appointments, meetings, work, or from getting things needed for daily living? Check all that apply. (Adult - for ages 18 years and over) Not on file 12/26/2022 Do you (or your family) have trouble finding or paying for a ride (transportation)? (Household - for ages 0-17 years) Not on file 12/26/2022 Housing Stability Answer Date Recorded Do you currently live in a s helter or have no steady place to sleep at night? (Adult - for ages 18 years and over) Not on file 12/26/2022 READ ONLY Do you think you a re at risk of becoming homeless? No 12/26/2022 Does your family worry about paying for your home or becoming homeless? (Household - for ages 0-17 years) Not on file 0 12/26/2022 Are you homeless or worried that you might be in the future? (Adult - for ages 18 years and over) Not on file Are you (or your family) sujata eless or worried that you might be in the future? (Household - for ages 0-17 years) Not on file Food Insecurity Answer Date Recorded Do you need food for this week? No 12/26/2022 Are you able to get enough f ood for your family? (Household - for ages 0-17 years) Not on file 12/26/2022 Does your family need food t his week? (Household - for ages 0-17 years) Not on file 12/26/2022 Do you always have enough fo od for your family? (Household - for ages 0-17 years) Not on file 12/26/2022 Sex and Gender Information Value Date Recorded Sex Assigned at Not on file Gender Identity Not on file Sexual Orientation Not on file Job Start Date Occupation Industry Not on file Not on file Not on file documented as of this encounter Functional Status Functional Status Response Date of Assess ment Are you deaf or do you have serious difficulty h earing? No 12/26/2022 Are you blind or do you have serious difficulty seeing, even when wearing glasses? No 12/26/2022 Do you have serious difficul ty walking or climbing stairs? (5 years old or older) No 12/26/2022 Do you have difficulty dress ing or bathing? (5 years old or older) No 12/26/2022 Because of a physical, menta l, or emotional condition, do you have difficulty doing errands alone such as visiting a doctor s office or shopping? (15 years old or older) No 12/27/19 23 Cognitive Status Response Date of Assessm ent Because of a physical, menta l, or emotional condition, do you have serious difficulty concentrating, remembering, or making decisions? (5 years old or older) No 12/26/2022 documented as of this encounter Miscellaneous Notes * Telephone Encounter - Hollie Panchal OSA - 11/26/2023 1:28 PM EDT Faxed. 11/26/2023 * Telephone Encounter - Kendra Low RN - 11/26/2023 12:42 PM EDT Provider to address: NA Reason for Call: Referral Contact: Telephone Call Contact Type: Orders Provider In-Basket: Yes Outcome: PT referral signed and faxed Face to face time spent with Patient (minutes): 0 Total Time including non face to face (minutes): 10 * Telephone Encounter - Farrukh Hsu OSA - 11/26/2023 12:09 PM EDT Has the patient been seen for this problem? (Y/N)?: Alea from [facility] stated that she thinks so If No, an appt needs to be scheduled before a referral will be placed (exception: proceed with referral request if referral request is for a yearly routine appointment with speciality) Patient Name: Wes Barillas Patient Primary care provider: Shilo Liao MD Does this need to be an insurance referral (Y/N)?: Yes If Yes, does the insurance referral need to be placed into the [facility] system? [place] of preferred specialist: Hans Booth Type of specialist: Physical therapy [facility] Phone #: [phone] Specialist's Fax #: [phone] Reason for visit: Right hip pain she thinks but it can be for both hips Date of visit: TBD documented in this encounter Plan of Treatment Scheduled Referrals Name Type Priority Associated Diagnoses Orde r Schedule PHYSICAL THERAPY REFERRAL OP Referral Within 30 days (routine) Hip pain, right Ordered: 11/26/2023 Health Maintenance Due Date Last Done Comments Depression Screening 1978 HIV Screening 1981 Hepatitis C Screening 1984 Hepatitis B Vaccine (1 of 3 - 19+ 3-dose series) 1985 Cologuard 06/12/2011 Colonoscopy 06/12/2011 Colorectal Cancer Screening 06/12/2011 Fecal Occult Blood Test 06/12/2011 Sigmoidoscopy 06/12/2011 Zoster Vaccines (1 of 2) 2016 COVID-19 Vaccine (1 - 2022- season) 2022 Influenza Vaccine (FLU shot) (#1) 2023 Diabetes Screening 12/27/2025 12/27/2022, 0 12/26/2022, 12/26/2022, Additional history exists Lipid Panel 06/24/2027 06/23/2022 DTaP,Tdap,and Td Vaccines (2 - Td or Tdap) 06/23/2032 06/23/2022 HPV (Gardasil) Vaccine Aged Out No lo nger eligible based on patient's age to complete this topic MENINGOCOCCAL (MENACTRA/MENVEO) Aged Out No longer eligible based on patient's age to complete this topic Pneumococcal Vaccine: Pediatrics (0 to 5 Years) and At-Risk Patients (6 to 64 Years) Aged Out No longer eligible based on patient's age to complete this topic documented as of this encounter Medical Devices Implanted Type Area Tar Chaser Device Identifier Shelf Expiration Date Model / Serial / Lot Screw Bone 6.5x25mm - Sn/A - [id number] Implanted:Qty: 1 on 12/26/2022 by Mohit Russell MD at OR [facility] Screw Right: Hip GALO : ORTHOPAEDICS N/A 08/24/2026 8412-7906 / N/A / WYJH Screw Bone 6.5x25mm - Sn/A - [id number] Implanted:Qty: 1 on 12/26/2022 by Mohit Russell MD at OR [facility] Screw Right: Hip GALO : ORTHOPAEDICS N/A 08/03/2025 4538-7382 / N/A / YLCJ Acetabular Clusterhole Shell56 - [id number] Implanted:Qty: 1 on 09/14/2022 by Mohit Russell MD at OR [facility] Left: Hip GALO : ORTHOPAEDICS 06/22/2027 702-04-56F / / [id number] Hip Darinel Trident X3 El Rim 36 F - [id number] Implanted:Qty: 1 on 09/14/2022 by Mohit Russell MD at OR [facility] Left: Hip GALO : ORTHOPAEDICS 04/10/2026 743-00-36F / / [id number] Screw Bone 6.5x25mm - [id number] Implanted:Qty: 1 on 09/14/2022 by Mohit Russell MD at OR [facility] Left: Hip GALO : ORTHOPAEDICS 08/03/2025 1147-5933 / / YLCJ Screw Bone 6.5x25mm - [id number] Implanted:Qty: 1 on 09/14/2022 by Mohit Russell MD at OR [facility] Left: Hip GALO : ORTHOPAEDICS 11/24/2026 4816-1459 / / [id number] 6.5mm Low Profile Hex Screw 6 - [id number] Implanted:Qty: 1 on 09/14/2022 by Mohit Russell MD at OR [facility] Left: Hip GALO : ORTHOPAEDICS 01/28/2025 6607-1671 / / [id number] Insignia Hip Stem- High Offset Implanted:Qty: 1 on 09/14/2022 by Mohit Russell MD at OR [facility] Left: Hip GAOL 08/16/2026 4037-6634 / / [id number] Hip Hd Nk Alumina Mod D 36/0 - [id number] Implanted:Qty: 1 on 09/14/2022 by Mohit Russell MD at OR [facility] Left: Hip GALO : ORTHOPAEDICS 05/27/2027 6570-0-136 / / [id number] Insignia Hip Stem - High Offset Implanted:Qty: 1 on 12/26/2022 by Mohit Russell MD at OR [facility] Right: Hip GALO ORTHOPEDICS N/A 08/23/2027 4284-4294 / N/A / [id number] Hip Hd Nk Alumina Mod D 36/0 - Sn/A - [id number] Implanted:Qty: 1 on 12/26/2022 by Mohit Russell MD at OR [facility] Right: Hip GALO : ORTHOPAEDICS N/A 03/09/2027 6570-0-136 / N/A / [id number] Acetabular Clusterhole Shell56 - Sn/A - [id number] Implanted:Qty: 1 on 12/26/2022 by Mohit Russell MD at OR [facility] Right: Hip GALO : ORTHOPAEDICS N/A 09/19/2026 702-04-56F / N/A / [id number] Hip Darinel Trident X3 El Rim 36 F - Sn/A - [id number] Implanted:Qty: 1 on 12/26/2022 by Mohit Russell MD at OR [facility] Right: Hip GALO : ORTHOPAEDICS N/A 10/18/2027 743-00-36F / N/A / [id number] documented as of this encounter Visit Diagnoses Diagnosis Hip pain, right- Primary Pain in joint, pelvic region and thigh documented in this encounter Advance Directives * Full Code (Latest Code Status on File) Date Activated Date Inactivated Comments 12/26/2022 5:51 PM 12/27/2022 4:32 PM This order r eflects the patients wishes and were consensually agreed upon. Question Answer Comments Discussion of Advance Directives occurred with: Patient * Full Code Date Activated Date Inactivated Comments 09/14/2022 2:34 PM 09/16/2022 4:23 PM This order r eflects the patients wishes and were consensually agreed upon. Question Answer Comments Discussion of Advance Directives occurred with: Patient Care Teams Flavoring Oil Filterer Relationship Specialty Start Date End Date Shilo Liao MD [address] [place] [address] PCP - General Family Medicine 04/04/22 documented as of this encounter
--- OUTSIDE RECORDS SUMMARY | 2024-05-11 11:32 | External Medical Summary | Summary of Care ---
Author Name Unknown Organization [facility] Address [address] [place] [address] Phone [phone] Care Team Providers Care Special Events Fundraiser Name Role Phone Shilo Liao MD Primary Care Provider [phone] Reason for Referral * Evaluate & Treat - Unlimited Visits (Within 30 days (routine)) - Authorized Specialty Diagnoses / Procedures Referred By Contcherry t Referred To Contact Physical Therapy / Physical Medicine And Rehab Diagnoses Hip pain, right Shilo Liao MD [address] [place] [address] Referral ID Status Reason Start Date Expiration Date Visits Requested Visits Authorized [id number] Authorized Specialty Services Required 11/26/2023 999 999 Question Answer Referral Priority Within 30 days (routine) Where should this appointment be scheduled? Leo Comments Right hip pain she thinks but it can be for both hips Reason for Visit * Reason Onset Date Comments Referral 11/26/2023 Encounter Details Date Type Department Care Team (Late st Contact Info) Description 11/26/2023 Telephone [facility] [address] [place] [address] Shilo Liao MD [address] [place] [address] Referral Allergies No known active allergiesdocumented as of this encounter (statuses as of 11/26/2023) Medications Medication Sig Dispensed Refills Start Date End Date Status Vitamin D3 1.25 MG (17580 UT) Oral CapsuleIndications: Low vitamin D level [...] encounter Miscellaneous Notes * Telephone Encounter - Kendra Low RN [...] seen for this problem? (Y/N)?: Alea from [facility] stated that she thinks so If [...] referral need to be placed into the [facility] system? [place] of preferred specialist: [facility] Type of specialist: Physical therapy [facility] Phone #: [phone] Specialist's Fax #: [phone] Reason for visit: Right hip pain she [...] this encounter Medical Devices Implanted Type Area Print Finisher Device Identifier Shelf Expiration Date Model / Serial / Lot Screw Bone 6.5x25mm - Sn/A - [id number] Implanted:Qty: 1 on 12/26/2022 by Mohit Russell MD at OR [facility] Screw Right: Hip GALO : ORTHOPAEDICS N/A 08/24/2026 6203-1862 / N/A / WYJH Screw Bone 6.5x25mm - Sn/A - [id number] Implanted:Qty: 1 on 12/26/2022 by Mohit Russell MD at OR [facility] Screw Right: Hip GALO : ORTHOPAEDICS N/A 08/03/2025 4954-5291 / N/A / YLCJ Acetabular Clusterhole Shell56 - [id number] Implanted:Qty: 1 on 09/14/2022 by Mohit Russell MD at OR [facility] Left: Hip GALO : ORTHOPAEDICS 06/22/2027 702-04-56F / / [id number] Hip Darinel Trident X3 El Rim 36 F - [id number] Implanted:Qty: 1 on 09/14/2022 by Mohit Russell MD at OR [facility] Left: Hip GALO : ORTHOPAEDICS 04/10/2026 743-00-36F / / [id number] Screw Bone 6.5x25mm - [id number] Implanted:Qty: 1 on 09/14/2022 by Mohit Russell MD at OR [facility] Left: Hip GALO : ORTHOPAEDICS 08/03/2025 3378-1952 / / YLCJ Screw Bone 6.5x25mm - [id number] Implanted:Qty: 1 on 09/14/2022 by Mohit Russell MD at OR [facility] Left: Hip GALO : ORTHOPAEDICS 11/24/2026 4162-8351 / / VHZD 6.5mm Low Profile Hex Screw 6 - [id number] Implanted:Qty: 1 on 09/14/2022 by Mohit Russell MD at OR [facility] Left: Hip GALO : ORTHOPAEDICS 01/28/2025 2455-6657 / / [id number] Insignia Hip Stem- High Offset Implanted:Qty: 1 on 09/14/2022 by Mohit Russell MD at OR [facility] Left: Hip GALO 08/16/2026 5534-9983 / / [id number] Hip Hd Nk Alumina Mod D 36/0 - [id number] Implanted:Qty: 1 on 09/14/2022 by Mohit Russell MD at OR [facility] Left: Hip GALO : ORTHOPAEDICS 05/27/2027 6570-0-136 / / [id number] [place] Insignia Hip Stem - High Offset Implanted:Qty: 1 on 12/26/2022 by Mohit Russell MD at OR [facility] Right: Hip GALO ORTHOPEDICS N/A 08/23/2027 9198-1209 / N/A / [id number] Hip Hd Nk Alumina Mod D 36/0 - Sn/A - [id number] Implanted:Qty: 1 on 12/26/2022 by Mohit Russell MD at OR [facility] Right: Hip GALO : ORTHOPAEDICS N/A 03/09/2027 6570-0-136 / N/A / [id number] Acetabular Clusterhole Shell56 - Sn/A - [id number] Implanted:Qty: 1 on 12/26/2022 by Mohit Russell MD at OR [facility] Right: Hip GALO : ORTHOPAEDICS N/A 09/19/2026 702-04-56F / N/A / [id number] Hip Darinel Trident X3 El Rim 36 F - Sn/A - [id number] Implanted:Qty: 1 on 12/26/2022 by Mohit Russell MD at OR [facility] Right: Hip GALO : ORTHOPAEDICS N/A [...] Advance Directives occurred with: Patient Care Teams Special Events Fundraiser Relationship Specialty Start Date End Date Shilo Liao MD [address], [place] [id number] PCP - General Family Medicine 04/04/22 documented as of this encounter
--- OUTSIDE RECORDS SUMMARY | 2024-05-11 11:32 | External Medical Summary | Summary of Care ---
Author Name Unknown Organization [facility] Address [address] [place] [address] Phone [phone] Care Team Providers Care Filler Feeder Name Role Phone Shilo Liao MD Primary Care Provider [phone] Encounter Details Date Type Department Care Team ([facility] Contact Info) Description 04/21/2024 Population Health External Data Unspecified Department Allergies No known active allergiesdocumented as of this encounter (statuses as of 04/21/2024) Medications Vitamin D3 1.25 MG (91658 UT) Oral CapsuleIndicati ons:Low vitamin D level Take 1 Capsule by mouth once a week. 12 Capsule 1 3 Active Calcium 500 MG Oral Tablet Take 1 Tablet by mouth in the morning and 1 Tablet before bedtime. With food.. 180 Tablet 3 3 Active 27-0.8 MG Oral Tablet Take 1 Tablet by mouth daily at noon - take for 2 months after your surgery for anemia 60 Tablet 12/27/2022 11:21 AM EDT 3 Active Aspirin 81 MG Oral Tablet Delayed Release Take 1 Tablet by mouth in the morning and 1 Tablet before bedtime. 90 Tablet 12/27/2022 11:21 AM EDT 3 Active Docusate Sodium 100 MG Oral Capsule (Colace) Take 1 Capsule by mouth 2 times a day as needed for Constipation. 10 Capsule 12/27/2022 11:21 AM EDT 3 Active Naproxen 375 MG Oral Tablet (Naprosyn) Take 1 Tablet by mouth 2 times a day with morning and evening meals. 30 Tablet 12/27/2022 11:21 AM EDT 3 Active Acetaminophen 500 MG Oral Capsule Take 1 Capsule by mouth every 6 hours as needed for Pain, Mild or Pain, Moderate. 60 Capsule 12/27/2022 11:21 AM EDT 3 Active Omeprazole 20 MG Oral Capsule Delayed Release (PriLOSEC) Take 1 Capsule by mouth in the morning. Do not start before December 28, 2022. 30 Capsule 12/27/2022 11:21 AM EDT 3 Active oxyCODONE HCl 5 MG Oral Tablet (Oxy IR) Take 1 Tablet by mouth every 6 hours as needed for Pain, Severe. 30 Tablet 3 Active Cyclobenzaprine HCl 10 MG Oral Tablet (Flexeril) Take 1 Tablet by mouth in the morning and 1 Tablet at noon and 1 Tablet before bedtime. 30 Tablet 3 Active Rosuvastatin Calcium 10 MG Oral Tablet (Crestor)Indica tions:Hyperlipi demia with target LDL less than 100 Take 1 Tablet by mouth in the morning. 30 Tablet 1 3 Active Vitamin D3 50 MCG (2000 UT) Oral Tablet Take 1 Tablet by mouth in the morning. 90 Tablet 3 3 Active methylPREDNISol one 4 MG Oral Tablet Therapy Pack (Medrol Dosepack) follow package directions 21 Tablet 3 Active documented as of this encounter (statuses as of 04/21/2024) Active Problems Problem Noted Date Diagnosed Date [...] as of this encounter (statuses as of 04/21/2024) Immunizations Name Administration Dates Next Due TDAP [...] y our heating, water, or electric bill? (Adult - for ages 18 years and over) Not on file 12/27/2023 Is your family able to pay t he heat, water, or electric bill? (Household - for ages 0-17 years) Not on file 12/27/2023 Does your family have access to good internet? (Household - for ages 0-17 years) Not on file 12/27/2023 Social Connections Answer Date Recorded How often [...] 18 years and over) Not on file 3 Are you (or your family) sujata eless [...] Recorded Sex Assigned at Not on file Legal Sex Male 4:19 PM EST Gender Identity Not on file Sexual Orientation Not on file documented as of this encounter Functional Status * Are you deaf or do you have serious difficulty hearing? Answer Date of Assessment Author No 12/26/2022 6:28 PM Chante Griffith RN * Are you blind or do you have serious difficulty seeing, even when wearing glasses? Answer Date of Assessment Author No 12/26/2022 6:28 PM Chante Griffith RN * Do you have serious difficulty walking or climbing stairs? (5 years old or older) Answer Date of Assessment Author No 12/26/2022 6:28 PM Chante Griffith RN * Do you have difficulty dressing or bathing? (5 years old or older) Answer Date of Assessment Author No 12/26/2022 6:28 PM Chante Griffith RN * Because of a physical, mental, or emotional condition, do you have difficulty doing errands alone such as visiting a doctors office or shopping? (15 years old or older) Answer Date of Assessment Author No 12/26/2022 6:28 PM Chante Griffith RN documented as of this encounter Mental Status * Because of a physical, mental, or emotional condition, do you have serious difficulty concentrating, remembering, or making decisions? (5 years old or older) Answer Entry Date Author No 12/26/2022 6:28 PM Chante Griffith RN documented in this encounter Plan of Treatment Health Maintenance Due Date Last Done Comments Depression Screening 1978 HIV Screening 1981 Hepatitis C Screening 1984 Hepatitis B Vaccine (1 of 3 - 19+ 3-dose series) 1985 Cologuard 06/12/2011 Colonoscopy 06/12/2011 Colorectal Cancer Screening 06/12/2011 Fecal Occult Blood Test 06/12/2011 Sigmoidoscopy 06/12/2011 Pneumococcal Vaccine: 50+ Years (1 of 1 - PCV) 2016 Zoster Vaccines (1 of 2) 2016 COVID-19 Vaccine (1 - season) 2023 Influenza Vaccine (FLU shot) (#1) 2023 Diabetes Screening 12/27/2025 12/27/2022, 0 12/26/2022, 12/26/2022, Additional history exists Lipid Panel 06/24/2027 06/23/2022 DTap/Tdap Vaccines (2 - Td or Tdap) 06/23/2032 06/23/2022 HPV (Gardasil) Vaccine Aged Out No lo nger eligible based on patient's age to complete this topic MENINGOCOCCAL (MENACTRA/MENVEO) Aged Out No longer eligible based on patient's age to complete this topic Pneumococcal Vaccine: Pediatrics (0 to 5 Years) and At-Risk Patients (6 to 18 Years and 19+ Years) Aged Out No longer eligib le based on patient's age to complete this topic documented as of this encounter Medical Devices Implanted Type Area Cage Manager Device Identifier Shelf Expiration Date Model / Serial / Lot Screw Bone 6.5x25mm - Sn/A - [id number] Implanted:Qty: 1 on 12/26/2022 by Mohit Russell MD at OR [facility] Screw Right: Hip GALO : ORTHOPAEDICS N/A 08/24/2026 7599-5579 / N/A / WYJH Screw Bone 6.5x25mm - Sn/A - [id number] Implanted:Qty: 1 on 12/26/2022 by Mohit Russell MD at OR [facility] Screw Right: Hip GALO : ORTHOPAEDICS N/A 08/03/2025 7890-2434 / N/A / YLCJ Acetabular Clusterhole Shell56 - [id number] Implanted:Qty: 1 on 09/14/2022 by Mohit Russell MD at OR [facility] Left: Hip GALO : ORTHOPAEDICS 06/22/2027 702-04-56F / / [id number] Hip Darinel Trident X3 El Rim 36 F - [id number] Implanted:Qty: 1 on 09/14/2022 by Mohit Russell MD at OR [facility] Left: Hip GALO : ORTHOPAEDICS 04/10/2026 743-00-36F / / [id number] Screw Bone 6.5x25mm - [id number] Implanted:Qty: 1 on 09/14/2022 by Mohit Russell MD at OR [facility] Left: Hip GALO : ORTHOPAEDICS 08/03/2025 3108-2655 / / YLCJ Screw Bone 6.5x25mm - [id number] Implanted:Qty: 1 on 09/14/2022 by Mohit Russell MD at OR [facility] Left: Hip GALO : ORTHOPAEDICS 11/24/2026 1063-1900 / / VHZD 6.5mm Low Profile Hex Screw 6 - [id number] Implanted:Qty: 1 on 09/14/2022 by Mohit Russell MD at OR [facility] Left: Hip GALO : ORTHOPAEDICS 01/28/2025 5953-3990 / / [id number] Insignia Hip Stem- High Offset Implanted:Qty: 1 on 09/14/2022 by Mohit Russell MD at OR [facility] Left: Hip GALO 08/16/2026 4409-6948 / / [id number] Hip Hd Nk Alumina Mod D 36/0 - [id number] Implanted:Qty: 1 on 09/14/2022 by Mohit Russell MD at OR [facility] Left: Hip GALO : ORTHOPAEDICS 05/27/2027 6570-0-136 / / [id number] [place] Insignia Hip Stem - High Offset Implanted:Qty: 1 on 12/26/2022 by Mohit Russell MD at OR [facility] Right: Hip GALO ORTHOPEDICS N/A 08/23/2027 9255-8323 / N/A / [id number] Hip Hd Nk Alumina Mod D 36/0 - Sn/A - [id number] Implanted:Qty: 1 on 12/26/2022 by Mohit Russell MD at OR [facility] Right: Hip GALO : ORTHOPAEDICS N/A 03/09/2027 6570-0-136 / N/A / [id number] Acetabular Clusterhole Shell56 - Sn/A - [id number] Implanted:Qty: 1 on 12/26/2022 by Mohit Russell MD at OR [facility] Right: Hip GALO : ORTHOPAEDICS N/A 09/19/2026 702-04-56F / N/A / [id number] Hip Darinel Trident X3 El Rim 36 F - Sn/A - [id number] Implanted:Qty: 1 on 12/26/2022 by Mohit Russell MD at OR [facility] Right: Hip GALO : ORTHOPAEDICS N/A 10/18/2027 743-00-36F / N/A / [id number] documented as of this encounter Advance Directives * Full Code [...] Advance Directives occurred with: Patient Care Teams Filler Feeder Relationship Specialty Start Date End Date Shilo Liao MD PCP - General Family Medicine 04/04/22 documented as of this encounter
--- OUTSIDE RECORDS SUMMARY | 2024-05-11 11:32 | External Medical Summary | Summary of Care ---
Author Name Unknown Organization [facility] Address [address] [place] [address] Phone [phone] Care Team Providers Care Cigarette Examiner Name Role Phone Shilo Liao MD Primary Care Provider [phone] Encounter Details Date Type Department Care Team ([facility] st Contact Info) Description 01/02/2024 Telephone [facility] DEPT CLOSED - 03/20/24 [address] [place] [id number] Shilo Liao MD [address] [place] [id number] Allergies No known active allergiesdocumented as of this encounter (statuses as of 04/02/2024) Medications Vitamin D3 1.25 MG (80212 UT) Oral CapsuleIndicati ons:Low vitamin D level [...] as of this encounter (statuses as of 04/02/2024) Active Problems Problem Noted Date Diagnosed Date [...] as of this encounter (statuses as of 04/02/2024) Immunizations Name Administration Dates Next Due TDAP [...] of Assessment Author No 12/26/2022 6:28 PM EDT Chante Manning RN documented as of this encounter Mental Status * Because of a physical, mental, or emotional condition, do you have serious difficulty concentrating, remembering, or making decisions? (5 years old or older) Answer Entry Date Author No 12/26/2022 6:28 PM EDT Chante Manning RN documented in this encounter Miscellaneous Notes * Telephone Encounter - Nataliia Petit LPN - 01/02/2024 2:50 PM EDT Received Fax for BFPROVIDERS: Dr. Shilo Liao PT PLAN OF CARE/EVALUATION received from [facility] and FAXED documented in this encounter Plan of Treatment Health Maintenance Due Date Last Done Comments Depression Screening 1978 HIV Screening 1981 Hepatitis C Screening 1984 Hepatitis B Vaccine (1 of 3 - 19+ 3-dose series) 1985 Cologuard 06/12/2011 Colonoscopy 06/12/2011 Colorectal Cancer Screening 06/12/2011 Fecal Occult Blood Test 06/12/2011 Sigmoidoscopy 06/12/2011 Zoster Vaccines (1 of 2) 2016 COVID-19 Vaccine ( - season) 2023 Influenza Vaccine (FLU shot) [...] this encounter Medical Devices Implanted Type Area Securities Research Analyst Device Identifier Shelf Expiration Date Model / Serial / Lot Screw Bone 6.5x25mm - Sn/A - [id number] Implanted:Qty: 1 on 12/26/2022 by Mohit Russell MD at OR [facility] Screw Right: Hip PATTIE : ORTHOPAEDICS N/A 08/24/2026 7938-3651 / N/A / WYJH Screw Bone 6.5x25mm - Sn/A - [id number] Implanted:Qty: 1 on 12/26/2022 by Mohit Russell MD at OR [facility] Screw Right: Hip PATTIE : ORTHOPAEDICS N/A 08/03/2025 5526-1120 / N/A / YLCJ Acetabular Clusterhole Shell56 - [id number] Implanted:Qty: 1 on 09/14/2022 by oMhit Russell MD at OR [facility] Left: Hip PATTIE : ORTHOPAEDICS 06/22/2027 702-04-56F / / [id number] Hip Darinel Trident X3 El Rim 36 F - [id number] Implanted:Qty: 1 on 09/14/2022 by Mohit Russell MD at OR [facility] Left: Hip PATTIE : ORTHOPAEDICS 04/10/2026 743-00-36F / / [id number] Screw Bone 6.5x25mm - [id number] Implanted:Qty: 1 on 09/14/2022 by Mohit Russell MD at OR [facility] Left: Hip PATTIE : ORTHOPAEDICS 08/03/2025 7086-5804 / / YLCJ Screw Bone 6.5x25mm - [id number] Implanted:Qty: 1 on 09/14/2022 by Mohit Russell MD at OR [facility] Left: Hip PATTIE : ORTHOPAEDICS 11/24/2026 7524-7876 / / VHZD 6.5mm Low Profile Hex Screw 6 - [id number] Implanted:Qty: 1 on 09/14/2022 by Mohit Russell MD at OR [facility] Left: Hip PATTIE : ORTHOPAEDICS 01/28/2025 4951-7872 / / [id number] Insignia Hip Stem- High Offset Implanted:Qty: 1 on 09/14/2022 by Mohit Russell MD at OR [facility] Left: Hip PATTIE 08/16/2026 4229-2051 / / [id number] Hip Hd Nk Alumina Mod D 36/0 - [id number] Implanted:Qty: 1 on 09/14/2022 by Mohit Russell MD at OR [facility] Left: Hip PATTIE : ORTHOPAEDICS 05/27/2027 6570-0-136 / / [id number] [place] Insignia Hip Stem - High Offset Implanted:Qty: 1 on 12/26/2022 by Mohit Russell MD at OR [facility] Right: Hip PATTIE ORTHOPEDICS N/A 08/23/2027 1524-7311 / N/A / [id number] Hip Hd Nk Alumina Mod D 36/0 - Sn/A - [id number] Implanted:Qty: 1 on 12/26/2022 by Mohit Russell MD at OR [facility] Right: Hip PATTIE : ORTHOPAEDICS N/A 03/09/2027 6570-0-136 / N/A / [id number] Acetabular Clusterhole Shell56 - Sn/A - [id number] Implanted:Qty: 1 on 12/26/2022 by Mohit Russell MD at OR [facility] Right: Hip PATTIE : ORTHOPAEDICS N/A 09/19/2026 702-04-56F / N/A / [id number] Hip Darinel Trident X3 El Rim 36 F - Sn/A - [id number] Implanted:Qty: 1 on 12/26/2022 by Mohit Russell MD at OR [facility] Right: Hip PATTIE : ORTHOPAEDICS N/A 10/18/2027 743-00-36F / N/A [...] Advance Directives occurred with: Patient Care Teams Cigarette Examiner Relationship Specialty Start Date End Date Shilo Liao MD PCP - General Family Medicine 04/04/22 documented as of this encounter
--- OUTSIDE RECORDS SUMMARY | 2024-05-11 11:32 | External Medical Summary | Summary of Care ---
Author Name Unknown Organization [facility] Address [address] [place] [address] Phone [phone] Care Team Providers Care Yard Clerk Name Role Phone Shilo Liao MD Primary Care Provider [phone] Reason for Visit * Reason Onset Date Comments [facility]: Screening 12/27/2023 Encounter Details Date Type Department Care Team ([facility] Contact Info) Description 12/27/2023 Telephone [facility], [address] [address] Jessi Rogers, [facility] [address] [place] [address] [facility]: Screening Allergies No known active allergiesdocumented as of this encounter (statuses as of 12/27/2023) Medications Medication Sig Dispensed Refills Start Date End Date Status Vitamin D3 1.25 MG (94800 UT) Oral CapsuleIndications: Low vitamin D level [...] as of this encounter (statuses as of 12/27/2023) Active Problems Problem Noted Date Diagnosed Date [...] as of this encounter (statuses as of 12/27/2023) Immunizations Name Administration Dates Next Due TDAP [...] (15 years old or older) No 12/27/19 Cognitive Status Response Date of Assessm ent Because of a physical, menta l, or emotional condition, do you have serious difficulty concentrating, remembering, or making decisions? (5 years old or older) No 12/26/2022 documented as of this encounter Miscellaneous Notes * Telephone Encounter - Jessi Rogers LPN - 12/27/2023 11:37 AM EDT Wes Barillas was referred as a potential candidate for enrollment for [facility]. A review of this chart was completed and: Wes does not meet criteria for enrollment into [facility]. Referral Source: Monthly Proactive Eligibility List Criteria for Ineligibility: Not Located in Service Area Referring care team was notified via : Epic communication In area but does not have the chronic conditions for [facility] documented in this encounter Plan of Treatment [...] this encounter Medical Devices Implanted Type Area Derrick Follower Device Identifier Shelf Expiration Date Model / Serial / Lot Screw Bone 6.5x25mm - Sn/A - [id number] Implanted:Qty: 1 on 12/26/2022 by Mohit Russell MD at OR [facility] Screw Right: Hip GALO : ORTHOPAEDICS N/A 08/24/2026 3406-2870 / N/A / WYJH Screw Bone 6.5x25mm - Sn/A - [id number] Implanted:Qty: 1 on 12/26/2022 by Mohit Russell MD at OR [facility] Screw Right: Hip GALO : ORTHOPAEDICS N/A 08/03/2025 7185-8115 / N/A / YLCJ Acetabular Clusterhole Shell56 - [id number] Implanted:Qty: 1 on 09/14/2022 by Mohit Russell MD at OR [facility] Left: Hip GALO : ORTHOPAEDICS 06/22/2027 702-04-56F / / [id number] Hip Darinel Trident X3 El Rim 36 F - [id number] Implanted:Qty: 1 on 09/14/2022 by Mohit Russell MD at OR [facility] Left: Hip GALO : ORTHOPAEDICS 04/10/2026 743-00-36F / / [id number] Screw Bone 6.5x25mm - [id number] Implanted:Qty: 1 on 09/14/2022 by Mohit Russell MD at OR [facility] Left: Hip GALO : ORTHOPAEDICS 08/03/2025 4966-6211 / / YLCJ Screw Bone 6.5x25mm - [id number] Implanted:Qty: 1 on 09/14/2022 by Mohit Russell MD at OR [facility] Left: Hip GALO : ORTHOPAEDICS 11/24/2026 4299-5614 / / VHZD 6.5mm Low Profile Hex Screw 6 - [id number] Implanted:Qty: 1 on 09/14/2022 by Mohit Russell MD at OR [facility] Left: Hip GALO : ORTHOPAEDICS 01/28/2025 4429-9197 / / [id number] Insignia Hip Stem- High Offset Implanted:Qty: 1 on 09/14/2022 by Mohit Russell MD at OR [facility] Left: Hip GALO 08/16/2026 8947-1234 / / [id number] Hip Hd Nk Alumina Mod D 36/0 - [id number] Implanted:Qty: 1 on 09/14/2022 by Mohit Russell MD at OR [facility] Left: Hip GALO : ORTHOPAEDICS 05/27/2027 6570-0-136 / / [id number] [place] Insignia Hip Stem - High Offset Implanted:Qty: 1 on 12/26/2022 by Mohit Russell MD at OR [facility] Right: Hip GALO ORTHOPEDICS N/A 08/23/2027 6583-8559 / N/A / [id number] Hip Hd Nk Alumina Mod D 36/0 - Sn/A - [id number] Implanted:Qty: 1 on 12/26/2022 by Mohit Russell MD at OR [facility] Right: Hip GALO : ORTHOPAEDICS N/A 03/09/2027 6570-0-136 / N/A / [id number] Acetabular Clusterhole Shell56 - Sn/A - [id number] Implanted:Qty: 1 on 12/26/2022 by Mohit Russell MD at OR [facility] Right: Hip GALO : ORTHOPAEDICS N/A 09/19/2026 702-04-56F / N/A / [id number] Hip Darinel Trident X3 El Rim 36 F - Sn/A - [id number] Implanted:Qty: 1 on 12/26/2022 by Mohit Russell MD at OR [facility] Right: Hip GALO : ORTHOPAEDICS N/A 10/18/2027 [...] Advance Directives occurred with: Patient Care Teams Yard Clerk Relationship Specialty Start Date End Date Shilo Liao MD [address] [place] [address] PCP - General Family Medicine 04/04/22 documented as of this encounter
[2024-05-11] MEDS ORDERED: ONDANSETRON INJ 2 MG/ML 2 ML VIAL IV PRN (11:35)
[2024-05-11] MEDS ORDERED: MoRPHine SULFATE 4 MG/ML 1 ML CARP\\VIAL IV PRN (11:35)
[2024-05-11] MEDS: LORazepam 2 MG/1 ML VIAL IV PRN ×2 (12:08→18:08)
[2024-05-11] MEDS: MULTIVITAMIN TAB PO SCH (12:09)
[2024-05-11] MEDS: SODIUM BICARBONATE 8.4% 150 MEQ in WATER, STERILE 1,000 ML IV SCH (12:09)
[2024-05-11] MEDS: PIPERACILLIN/TAZOBACTAM 4.5 GM/100 ML BAG IV SCH (14:05)
--- NOTE | 2024-05-11 15:12 | Gastrointestinal Consultation ---
Date of Consultation May 11, 2024 Assessment & Plan (1) Alcoholism /alcohol abuse: Advised patient to abstain from all alcohol as it is a known liver/pancreas toxin On prophylactic regimen for alcohol withdrawal (2) Alkaline phosphatase elevation: (3) Transaminitis: (4) Acute pancreatitis: Continue supportive care with IVF, narcotic analgesics and antiemetics Avoid all alcohol in the future Will follow clinical course and make further recommendations as needed. History of Present Illness Reason for Consultation: Acute Pancreatitis Attending Physician: Erwin Yin MD History of Present Illness 58 yo CM with chronic alcohol abuse who presented to the ER early this AM with complaints of epigastric abd pain for the past 24 hours with associated nausea and vomiting. Upon arrival to the ER, he was noted to have elevations in his AST 78 ALT 103 and BT of 1.3 as well as a lipase of 3343. He also had a RUQ US and CT abd/pelvis which showed cholelithiasis, but no evidence of acute cholecystitis or biliary ductal dilation. He does admit to drinking heavily and admits to "about a 6 pack per day." He was admitted, given IVF, narcotic analgesics, antiemetics and alcohol withdrawal protocol. At the time I saw the patient today, he noted a "little improvement." He states his abd pain had decreased from 9/10 in intensity to 7/10, and he denied any further nausea or vomiting. He denied any history of alcohol withdrawal and denies any inpatient stays for alcoholism. He had no further complaints. Allergies Allergy/AdvReac Type Severity Reaction Status Date / Time shellfish derived Allergy Severe Anaphylaxis Verified 05/11/24 08:44 Home Medications Medication Instructions Recorded Confirmed Type amino acids (Amino Acid capsule) 1 cap PO DAILY 05/11/24 05/11/24 History cholecalciferol (vitamin D3) 25 25 mcg PO DAILY 05/11/24 05/11/24 History mcg (1,000 unit) tablet (Vitamin D3) multivitamin 1 tab PO DAILY 05/11/24 05/11/24 History Patient History Social History Smoking Status: Never smoker Tobacco Type: Smokeless Tobacco (Dip or Chew) Hx Alcohol Use: Yes Alcohol type: beer Hx Substance Use: No Preferred Language: Icelandic Communication Ability: Effective Rn Rehab Required: No Beliefs That Will Affect Care: None Current Living Situation: Alone Feels Safe at Home: Yes Assistive Devices: None Review of Systems Review of Systems: All systems reviewed & are unremarkable except as noted in HPI & below Physical Exam Constitutional: + obese Eyes: + anicteric sclerae Neck: normal visual inspection Respiratory: normal respiratory effort, lungs clear to auscultation Cardiovascular: RRR, no murmur, no edema Gastrointestinal (Abdomen): Inspection/Auscultation: + abdomen distended and normal bowel sounds Percussion/Palpation: + abdomen tender and abdomen soft; no guarding and abdomen not rigid No appreciable HSM Skin: no rashes, warm and dry Psychiatric: Orientation: alert and oriented x 3 Results & Data Vital Signs (Past 12 Hours) Vital Signs Temp Pulse Pulse Resp BP BP Pulse Ox 05/11/24 12:29 115 H 05/11/24 11:52 05/11/24 11:45 36.9 C 107 H 20 163/104 H 97 05/11/24 09:51 110 H 19 175/122 H 97 05/11/24 09:31 109 H 19 190/125 H 94 05/11/24 07:30 104 H 17 143/106 H 94 05/11/24 06:46 36.4 C L 112 H 18 158/118 H 96 05/11/24 06:44 36.4 C L 05/11/24 06:16 105 H 96 05/11/24 05:57 132 H 05/11/24 05:47 134 H 23 183/146 H 96 O2 Del Method 05/11/24 12:29 05/11/24 11:52 Room Air 05/11/24 11:45 Room Air 05/11/24 09:51 Room Air 05/11/24 09:31 Room Air 05/11/24 07:30 Room Air 05/11/24 06:46 05/11/24 06:44 05/11/24 06:16 Room Air 05/11/24 05:57 05/11/24 05:47 Room Air PG Care Time/CCT Total # of Minutes Spent Total Time Spent with Patient: Total time spent is greater than 50% in coordination of care (as documented) at patient's floor/unit and/or counseling patient: Coding Level of Care Code 26284 IN/OBS CONSULT LVL 4,60M Diagnoses Alcoholism /alcohol abuse F10.20 Alkaline phosphatase elevation R74.8 Transaminitis R74.01 Acute pancreatitis K85.90
[2024-05-11 15:27] LABS: BUN Creatinine Ratio 4.3 (10-20); Calcium 9.1 mg/dl (8.6-10.3); Creatinine Clr Calc Pharmacy 106.7 ml/min
[2024-05-11] MEDS: hydrALAZINE HCL 20 MG/ML VIAL IV PRN (17:03)
[2024-05-11] MEDS: METOPROLOL TARTRATE 1 MG/ML VIAL IV STA ×3 (19:48→22:18)
--- NOTE | 2024-05-11 19:59 | XRay Report ---
EXAM: Radiograph of the Chest 1 View INDICATION: Lethargy and hypoxia. TECHNIQUE: Frontal view of the chest. COMPARISON: No relevant prior studies available. FINDINGS: Lungs and pleural spaces: No consolidation or pulmonary edema. No pleural effusion or pneumothorax. No pleural effusion or pneumothorax. Heart: Shape and configuration within normal limits allowing for technique. Mediastinum: Normal contour. Bones/joints: No fracture, erosion or dislocation. Soft tissues: No abnormality noted. No radiopaque foreign body noted. Vasculature: Shallow inspiration with vascular crowding. Slightly more prominent markings noted in the left base. Upper abdomen: No abnormality noted. IMPRESSION: Shallow inspiration with vascular crowding. Possible developing left basilar infiltrate. ACT 112: Negative or not required by law. Electronically signed by Charlee Burks 05-11-2024 7:59 PM
--- NOTE | 2024-05-11 19:59 | Communication Note ---
Date of Service: May 11, 2024 Overnight developments 05/11, 730P Patient tachycardic, with elevated SBP 1 40-1 90s since admission this a.m. Patient lethargic as per RN. Received IV narcotics and benzos for pancreatitis and alcohol withdrawal. AP Hypertensive urgency Alcohol withdrawal Likely chronic BP elevation given incidental finding of cardiomegaly on CT imaging Initiate losartan IV Lopressor every 6 hours RTC if patient unable to take p.o. meds safely for now. 05/12, 240AM RN voiced concerns regarding uncontrolled withdrawal symptoms at PCU. Recommended consideration for Precedex. Case discussed with ICU [facility]. She recommends holding maintenance IVF for now. ICU transfer orders placed after patient evaluated by ICU [facility].
[2024-05-11] MEDS: FUROSEMIDE INJ 20 MG/2 ML VIAL IV ONE (20:09)
[2024-05-11] MEDS: MAGNESIUM SULFATE / D5W 1 GM/100 ML BAG IV ONE (20:15)
[2024-05-11] MEDS ORDERED: oxyCODONE HCL IR 5 MG TAB (IMMEDIATE RELEASE) PO PRN (20:41)
[2024-05-11] MEDS ORDERED: ACETAMINOPHEN 500 MG TAB PO PRN (20:41)
[2024-05-11] MEDS: IPRATROPIUM BROMIDE NEB SOLN 0.02% 0.5MG/2.5ML VIAL INH STA (20:43)
[2024-05-11] MEDS: LEVALBUTEROL 1.25 MG/3 ML NEB NEB STA (20:43)
[2024-05-11 20:59] LABS: Base Excess VBG -8.4 mEq/L; HCO3 VBG 16 mmol/L; PCO2 VBG 31 mmHg (38-50); PO2 VBG 81 mmHg; pH VBG 7.33 (7.36-7.41)
--- NOTE | 2024-05-11 21:17 | Electrocardiogram Report ---
Test Reason : Blood Pressure : */* mmHG Vent. Rate : 116 BPM Atrial Rate : 116 BPM P-R Int : 152 ms QRS Dur : 80 ms QT Int : 340 ms P-R-T Axes : 57 -18 61 degrees QTcB Int : 472 ms Sinus tachycardia Cannot rule out Inferior infarct , age undetermined Possible Anterior infarct , age undetermined Abnormal ECG No previous ECGs available Confirmed by Tai Love ([id number]) on 05/11/2024 9:16:49 PM Referred By: REFERRED SELF Confirmed By: Tai Love
[2024-05-11 21:21] LABS: BUN Creatinine Ratio 4.1 (10-20); Calcium 8.8 mg/dl (8.6-10.3); Creatinine Clr Calc Pharmacy 103.4 ml/min; Potassium 3.7 mmol/L (3.5-5.1)
[2024-05-11] MEDS: POTASSIUM CHLORIDE / WTR 10 MEQ/100 ML PLCT IV SCH (22:24)
[2024-05-11] MEDS: METOPROLOL TARTRATE 1 MG/ML VIAL IV SCH (23:23)
[2024-05-12] MEDS ORDERED: METOPROLOL TARTRATE 1 MG/ML VIAL IV SCH
[2024-05-12] MEDS: METOPROLOL TARTRATE 1 MG/ML VIAL IV STA ×2 (00:38→02:57)
[2024-05-12] MEDS: LORazepam 2 MG/1 ML VIAL IV STA (02:57)
[2024-05-12] MEDS ORDERED: STAT IV Infusion **Titration per Protocol STA (03:15)
--- NOTE | 2024-05-12 03:33 | Critical Care Consultation ---
Date of Consultation May 12, 2024 Assessment & Plan (1) Acute pancreatitis: (2) Alcoholism /alcohol abuse: (3) Metabolic acidosis: Plan Reason Critically Ill: Possible ETOH withdrawal Hypoactive delirium vs. sedative effect of benzodiazepines vs. metabolic encephalopathy Fever 2/2 pancreatitis Acute interstitial edematous pancreatitis HAGMA, resolved (HCO3 GI loss vs starvation ketosis vs lactic acidosis) Neuro - [facility] ICU: Patient too sedate currently RASS GOAL 0 to -1 Ammonia WNL Wean Precedex to off Was on Librium taper but too sedate for PO Rx Ativan PRN but caution as his high NGUYEN score is likely secondary to hemodynamic changes in the setting of pancreatitis Cardiac - No acute concerns POCUS with extremely limited views - unable to visualize IVC or R heart. LV systolic function appears grossly intact MAP goal > 65mmHg TG 500 Reintroduce antihypertensives as clinically feasible Respiratory - Shallow breathing in light of abdominal pain, protuberant abdomen, somnolence ABG shows adequate ventilation and oxygenation SpO2 > 92% Possible L basilar infiltrate read on CXR, likely atelectasis. GI - Diet: Strict NPO pending improvement in neurologic status SUP: PPI Bowel regimen: Miralax when able to take PO Abdomen is tense but without signs of abdominal compartment syndrome RENAL/LYTES - Replete electrolytes as indicated Neves for accurate I/Os, can likely remove tomorrow or later today. Maintain net even to net negative Received adequate volume resuscitation. Bolus LR PRN. Encourage PO intake ENDO - BG 140-180 per SCCM guidelines ISS if needed while inpatient HEME - Leukocytosis is likely reactive ID - Fever secondary to pancreatitis. BC drawn and UA sent. CXR pending but no obvious infiltrate on my review. Will D/c abx today MRSA negative Procalcitonin pending, will likely be elevated in setting of inflammation LINES/TUBES/DRAINS - PIV x2 Neves (Day #1) DVT PROPHYLAXIS - Enoxaparin Disposition: ICU Patient's mother does not have a phone number on file and he has no other contacts in our system. I have personally spent 45 minutes of critical care time in the direct management of this patient. This is a life/limb threatening event. This includes time spent evaluating patient, direct bedside care, chart review, placing orders, interpretation of diagnostic studies, discussion with consultants, patient, and family members, as well as other required patient management activities. This time is exclusive of all separately billable procedures, and teaching time and separate from and in addition to any other critical care service time. Thank you for allowing us to participate in the care of this patient. Please refer to my attending physician's documentation for any further recommendations. Supervising Physician Co-Signing Physician Notes Patient seen and examined. EMR reviewed. Discussed with bedside critical care nurse as well as with overnight critical care [facility] and on multidisciplinary rounds. This morning the patient is somewhat obtunded and lethargic on Precedex. He is on a low-dose and this will be discontinued. He remains hemodynamically stable with improvement in his tachycardia but blood pressure is borderline. He is received about 5 to 6 L of crystalloid which may be under resuscitated given his body habitus and pancreatitis. Lipase is decreased significantly and his exam is reassuring. Discontinue acetaminophen given mildly abnormal LFTs. Reassuring that his blood gas and lactate are both normal. Unclear what to make of his procalcitonin. He is been initiated on broad-spectrum antibiotics but typically antimicrobials or not used for pancreatitis in the absence of necrotizing infection which does not appear to be present on his CT scan. Blood cultures from today are pending. Will repeat procalcitonin in the morning. Continue electrolyte replacement protocol. Will observe for issues related to agitation off the Precedex and may consider alternative agents such as phenobarbital needed. Okay to advance diet. Triglycerides were mildly elevated and will recheck in the a.m.. Unclear etiology for his significant anion gap acidosis on presentation however it appears to have cleared. Continue to follow closely. An additional 45 minutes in critical care time was spent in evaluation and management of life-threatening illness with significant possibility of clinical decline. History of Present Illness Reason for Consultation: ETOH withdrawal Requesting Physician: Lucas Attending Physician: Erwin Yin MD History of Present Illness Mr. Wes Barillas is a 58YOM with a history of ETOH dependence, tobacco dependence, morbid obesity who was admitted to [facility] the morning of 05/11/2024 due to pancreatitis attributed to ETOH. RUQ US ruled out cholestatic disease. TG only 500. He was fluid resuscitated and placed on bicarbonate infusion due to profound metabolic acidosis. Started on Librium taper and NGUYEN protocol. He received 1 dose of furosemide and placed back on IVF. Multiple doses of metoprolol tartrate were administered due to tachycardia without improvement. ICU was consulted for evaluation. Patient was seen in E452. He awakens to loud voice. Is oriented to only person. Falls back asleep quickly. Breathing is labored and shallow. He is tachycardic and mildly hypertensive. Saturating well on 4L NC. He was transferred to ICU for continuation of care. On arrival to ICU patient was noted to be febrile to 39.1C rectally. He was provided with IV Tylenol and ice packs. ROS unable to be obtained due to mentation. Allergies Allergy/AdvReac Type Severity Reaction Status Date / Time shellfish derived Allergy Severe Anaphylaxis Verified 05/11/24 08:44 Home Medications Medication Instructions Recorded Confirmed Type amino acids (Amino Acid capsule) 1 cap PO DAILY 05/11/24 05/11/24 History cholecalciferol (vitamin D3) 25 25 mcg PO DAILY 05/11/24 05/11/24 History mcg (1,000 unit) tablet (Vitamin D3) multivitamin 1 tab PO DAILY 05/11/24 05/11/24 History Patient History Social History Smoking Status: Never smoker Tobacco Type: Smokeless Tobacco (Dip or Chew) Hx Alcohol Use: Yes Alcohol type: beer Hx Substance Use: No Preferred Language: Eritrean Communication Ability: Effective Technology Training Associate Required: No Beliefs That Will Affect Care: None Current Living Situation: Alone Feels Safe at Home: Yes Assistive Devices: None Review of Systems Review of Systems: Unobtainable due to cognitive status Physical Exam Constitutional: + ill appearing, + altered mental status , + disheveled and + overweight Eyes: PERRL, conjunctivae normal, anicteric sclerae ENMT: Mouth: + dry oral mucous membranes Neck: trachea midline, no thyromegaly Respiratory: + labored breathing, + tachypneic and sy mmetric chest movement Auscultation: + diminished lung sounds; no rales, no rhonchi and no wheezes Cardiovascular: Rate/Rhythm: regular rhythm and + tachycardic Heart Sounds: no murmur Vessels: normal peripheral pulses; no JVD Gastrointestinal (Abdomen): Inspection/Auscultation: + hypoactive bowel sounds; no visible herniation, caput medusae absent and Cervantes-Tran sign absent Percussion/Palpation: + abdomen tender, + hepatomegaly and + dullness to percussion; no pulsatile mass and no fluid wave protuberant. POCUS shows minimal ascites Musculoskeletal: Head/Neck/Chest: normocephalic and head atraumatic Extremities: extremities normal to inspection; no cyanosis Skin: no rashes, warm and dry Neurologic: moves all extremities and + confused; no focal motor deficits Genitourinary: Buried penis. Neves in place draining milky turbid urine Results & Data Results & Data Vital Signs (Past 12 Hours) Vital Signs Temp Pulse Pulse Resp BP BP BP 05/12/24 02: 36.7 C 130 H 40 H 145/103 H 05/12/24 01:05 112 H 132/94 05/12/24 00:36 123 H 147/106 H 05/11/24 23:54 36.6 C 120 H 41 H 05/11/24 23:53 120 H 156/112 H 05/11/24 23:05 36.9 C 128 H 40 H 145/102 H 05/11/24 22:44 05/11/24 21:51 30 H 05/11/24 21:50 138 H 149/105 H 05/11/24 20:47 36.4 C L 125 H 35 H 146/106 H 05/11/24 20:00 104 H 145/98 H 05/11/24 19:48 145 H 05/11/24 18:34 36.9 C 134 H 16 154/109 H 05/11/24 17:03 161/120 H 05/11/24 16:23 124 H 05/11/24 15:58 36.9 C 124 H 25 H 160/113 H Pulse Ox O2 Del Method O2 Flow Rate 05/12/24 02:25 94 Nasal Cannula 4 05/12/24 01:05 05/12/24 00:36 05/11/24 23:54 98 Nasal Cannula 4 05/11/24 23:53 05/11/24 23:05 96 Nasal Cannula 4 05/11/24 22:44 Nasal Cannula 4 05/11/24 21:51 94 Nasal Cannula 4 05/11/24 21:50 93 Nasal Cannula 4 05/11/24 20:47 94 Nasal Cannula 4 05/11/24 20:00 05/11/24 19:48 05/11/24 18:34 92 Room Air 05/11/24 17:03 05/11/24 16:23 05/11/24 15:58 93 Room Air Laboratory Results Reviewed Diagnostic Findings Reviewed Medications Administered See MAR Coding Level of Care Code 14126 CRITICAL CARE EA ADD 30M Diagnoses Acute pancreatitis K85.90 Alcoholism /alcohol abuse F10.20 Metabolic acidosis E87.20 Time Spent (min) 45
[2024-05-12] MEDS: dexMEDEtomidine 200 MCG/50 ML BAG IV SCH (04:17)
[2024-05-12 04:26] LABS: Appearance Urine Turbid (Clear); Bacteria Urine Automated None Seen (None Seen); Bilirubin Urine 2+ (Negative); Blood Urine 2+ (Negative); Color Urine Orange; Glucose Urine UA Negative (Negative); Ketones Urine 1+ (Negative); Leukocyte Esterase Urine Trace (Negative); Nitrite Urine Negative (Negative); Protein Urine 2+ (Negative); Specific Gravity Urine 1.022 (1.000-1.030); Urobilinogen Urine Negative (Negative); pH Urine 5.5 (4.5-7.5)
[2024-05-12] MEDS: ACETAMINOPHEN 1000 MG/100 ML IV IV ONE (04:32)
[2024-05-12] MEDS: ACETAMINOPHEN 1,000 MG/100 ML VIAL IV STA (04:32)
[2024-05-12 04:41] LABS: Amorphous Sediment Urine Present (None Prsent)
[2024-05-12 04:59] LABS: Base Excess VBG -2.8 mEq/L; HCO3 VBG 22 mmol/L; Oxygen Saturation VBG 95.9 %; PCO2 VBG 37 mmHg (38-50); PO2 VBG 63 mmHg; pH VBG 7.38 (7.36-7.41)
[2024-05-12 05:10] LABS: Basophils # (auto) 0.05 K/uL (0.00-0.20); Basophils % (auto) 0.4 %; Eosinophils % (auto) 2.3 %; Hematocrit (blood only) 46.4 % (42.0-52.0); Immature Granulocytes # (auto) 0.24 K/uL (0.01-0.20); Immature Granulocytes % (auto) 1.8 %; Lymphocytes # (auto) 0.63 K/uL (1.20-3.40); Lymphocytes % (auto) 4.8 %; Mean Corpuscular Hemoglobin 34.4 pg (25.0-34.0); Mean Corpuscular Hgb Conc 36.6 g/dL (32.0-36.0); Mean Corpuscular Volume 93.9 fL (80.0-100.0); Monocytes # (auto) 0.66 K/uL (0.11-0.59); Neutrophils # (auto) 11.24 K/uL (1.40-6.50); Neutrophils % (auto) 85.7 %; Platelet Count 156 K/uL (130-400); RDW Coefficient of Variation 13.4 % (11.5-14.5); RDW Standard Deviation 46.2 fL (36.4-46.3); Red Blood Count 4.94 M/uL (4.70-6.10); White Blood Count 13.12 K/ul (4.8-10.8)
[2024-05-12 05:21] LABS: Anion Gap 8 (3-11); BUN Creatinine Ratio 5.1 (10-20); Blood Urea Nitrogen 5 mg/dl (6-23); Calcium 8.7 mg/dl (8.6-10.3); Carbon Dioxide 21 mmol/L (21-32); Chloride 106 mmol/L (98-107); Creatinine Clr Calc Pharmacy 102.4 ml/min; Glucose 179 mg/dl (70-99(Fasting)); Potassium 3.7 mmol/L (3.5-5.1); Sodium 135 mmol/L (136-145)
[2024-05-12 05:24] LABS: Alanine Aminotransferase 69 U/L (7-52); Albumin Level 3.1 gm/dl (3.4-5.0); Alkaline Phosphatase 64 U/L (34-104); Aspartate Aminotransferase 60 U/L (13-39); Bilirubin Direct 0.9 mg/dl (0-0.2); Bilirubin,Total 1.7 mg/dl (0.2-1.0); Lipase 446 U/L (11-82); Magnesium 1.6 mg/dl (1.7-2.4); Phosphorus < 1.0 mg/dl (2.5-4.9); Total Protein 6.2 gm/dl (6.0-8.3)
[2024-05-12] MEDS: ICU ELECTROLYTE REPLACEMENT PROTOCOL SCH (05:40)
[2024-05-12] MEDS ORDERED: SODIUM PHOSPHATE 3 MMOL/1 ML INFUSION IV STA ×2 (05:51→19:19)
[2024-05-12] MEDS: MAGNESIUM SULFATE / D5W 1 GM/100 ML BAG IV SCH (06:09)
[2024-05-12] MEDS: POTASSIUM CHLORIDE / WTR 10 MEQ/100 ML PLCT IV SCH (06:10)
[2024-05-12] MEDS: SODIUM PHOSPHATE 30 MMOL in SODIUM CHLORIDE 0.9% 500 ML IV STA (06:27)
--- NOTE | 2024-05-12 06:29 | XRay Report ---
EXAM: XR chest 1V portable CLINICAL HISTORY: Hypoxemia, possible pneumonia. TECHNIQUE: X-ray image of the chest obtained in 1 frontal projection. COMPARISON: No prior studies available for comparison. FINDINGS: Pulmonary Parenchyma: Prominent bilateral parahilar markings. No evidence of consolidation, collapse, or focal opacities. No pulmonary nodules identified. No evidence of pleural effusion or pleural thickening. Heart and Mediastinum: Heart size and shape are normal. No mediastinal widening or masses. No hilar or mediastinal lymphadenopathy. Bony Thorax: Bony thorax appears intact without fractures or deformities. Soft Tissues: Soft tissues overlying the chest wall are unremarkable. Suggestion of NG tube placement, not clearly visualised. IMPRESSION: 1. Prominent bilateral parahilar markings possibly bronchitis vs congestion. 2. No evidence of nodules or focal opacities. Electronically signed by Regulo Good 05-12-2024 06:29 AM
[2024-05-12] MEDS: LACTATED RINGER'S 1,000 ML IV SCH (07:19)
[2024-05-12] MEDS: ICU Protocol for HYPERglycemia SCH (07:25)
[2024-05-12] MEDS ORDERED: ICU Protocol for HYPERglycemia SCH (07:30)
[2024-05-12 07:34] LABS: Estimated Average Glucose 111 mg/dl; Hemoglobin A1C 5.5 % (4.5-5.6)
[2024-05-12] MEDS: ENOXAPARIN INJ 40 MG/0.4 ML SYR SQ SCH (07:59)
[2024-05-12] MEDS: FOLIC ACID 1 MG in SYRINGE 9.8 ML IV SCH (08:34)
[2024-05-12] MEDS: THIAMINE HCL 100 MG in SODIUM CHLORIDE 0.9% 50 ML IV SCH (08:34)
[2024-05-12] MEDS ORDERED: lisinopril 5 MG TAB PO SCH (09:00)
[2024-05-12] MEDS ORDERED: LOSARTAN POTASSIUM 25 MG TAB PO SCH (09:00)
[2024-05-12] MEDS: LACTATED RINGER'S 2,000 ML IV ONE (09:17)
[2024-05-12 09:50] LABS: iSTAT Allen Test Pass; iSTAT Art Bld Gas pCO2 Correct 40 mmHg (35-46); iSTAT Art Bld Gas pH Corrected 7.298 (7.35-7.45); iSTAT Arterial Blood Gas HCO3 19 meg/L (19-24); iSTAT Arterial Blood Gas pCO2 38 mmHg (35-46); iSTAT Arterial Blood Gas pH 7.31 (7.35-7.45); iSTAT Arterial Blood Gas pO2 79 mmHg (80-95); iSTAT Arterial Blood Gas pO2 C 85; iSTAT Carbon Dioxide 20 mmol/L (24-31); iSTAT Hematocrit 44 % (42-52); iSTAT Potassium 4.2 mmol/L (3.3-5.0); iSTAT Sample Type Arterial; iSTAT Site L Radial; iSTAT Sodium 135 mmol/L (135-144); iSTAT SpO2 98
[2024-05-12] MEDS ORDERED: CARBOHYDRATES FOR HYPOGLYCEMIA PO PRN (11:20)
[2024-05-12] MEDS ORDERED: GLUCOSE 40% GEL 15 GM TUBE PO PRN (11:20)
[2024-05-12] MEDS ORDERED: GLUCOSE 10 TAB/TUBE PO PRN (11:20)
[2024-05-12] MEDS ORDERED: GLUCAGON FOR INJ 1 MG VIAL SQ PRN (11:20)
[2024-05-12] MEDS ORDERED: DEXTROSE 50% 50 ML SYRINGE IV PRN (11:20)
[2024-05-12] MEDS: INSULIN ASPART PER UNIT CHARGE SC SCH (12:16)
[2024-05-12] MEDS: INSULIN ASPART PER UNIT CHARGE ONE (12:16)
[2024-05-12] MEDS ORDERED: ACETAMINOPHEN 1,000 MG/100 ML VIAL IV SCH (13:00)
[2024-05-12] MEDS ORDERED: chlordiazePOXIDE HCl 25 MG CAP PO SCH (14:00)
[2024-05-12] MEDS: PHENobarbital sodium 65 MG/ML VIAL IV STA (14:48)
[2024-05-12] MEDS: PHENobarbital PO Alcohol Withdrawal PO STA (14:48)
--- NOTE | 2024-05-12 14:57 | Gastroenterology Progress Note ---
Date of Service May 12, 2024 Assessment & Plan (1) Acute pancreatitis: (2) Alcoholism /alcohol abuse: Plan -Patient currently NPO due to pancreatitis as well as mental status -Continue IV fluid hydration, pain management, CIWA protocol for alcohol withdrawal -Continue to monitor LFTs -Would advise alcohol cessation Admission and Anticipated Discharge Date Admission Date: May 11, 2024 Supervising Physician Co-Signing Physician Notes EtOH pancreatitis. EtOH withdrawal. In the ICU. Management pain control IV fluids DT withdrawal protocol. Subjective Patient is a 58 yo male with pancreatitis (based on lipase & symptoms) due to alcohol use. Lipase trending down today. T bili 1.7, D bili 0.9, AST 60, ALT 69. Patient began withdrawing from alcohol overnight and is now in the ICU with DTs. Review of Systems Review of Systems: Unobtainable due to reduced consciousness Physical Exam Constitutional: + ill appearing Respiratory: normal respiratory effort Gastrointestinal (Abdomen): normal bowel sounds, soft, nontender, no hepatosplenomegaly Results & Data Results & Data Vital Signs (Past 12 Hours) Vital Signs Temp Pulse Resp BP Pulse Ox Pulse Ox O2 Del Method 05/12/24 14:48 130 H 41 H 154/105 H 05/12/24 14:00 154/105 H 05/12/24 13:54 38.8 C H 127 H 41 H 93 05/12/24 13:01 110/87 05/12/24 12:57 38.5 C H 122 H 18 91 05/12/24 12:00 144/87 H 05/12/24 12:00 38.3 C H 122 H 40 H 89 L 05/12/24 12:00 Nasal Cannula 05/12/24 11:00 146/97 H 05/12/24 11:00 38.1 C H 112 H 40 H 97 05/12/24 10:15 120/84 05/12/24 10:12 38.0 C H 100 H 30 H 97 05/12/24 10:03 38.0 C H 103 H 31 H 97 05/12/24 10:00 114/82 05/12/24 09:57 38.0 C H 105 H 35 H 98 05/12/24 09:45 117/81 05/12/24 09:45 38.0 C H 98 H 28 H 98 05/12/24 09:30 109/73 05/12/24 09:30 109/73 05/12/24 09:27 38.0 C H 103 H 30 H 97 05/12/24 09:16 108/77 05/12/24 09:09 38.0 C H 105 H 31 H 96 05/12/24 09:03 38.0 C H 97 H 31 H 96 05/12/24 09:00 100/70 05/12/24 09:00 100/70 05/12/24 08:57 38.0 C H 97 H 31 H 95 05/12/24 08:46 101/69 05/12/24 08:08 92/71 L 05/12/24 08:00 38.1 C H 100 H 31 H 98 05/12/24 08:00 Nasal Cannula 05/12/24 08:00 Nasal Cannula 05/12/24 07:39 38.1 C H 113 H 32 H 97 05/12/24 07:30 106/74 05/12/24 07:00 38.4 C H 110 H 28 H 96 05/12/24 07:00 104/78 05/12/24 06:45 101/76 05/12/24 06:45 38.4 C H 113 H 30 H 97 05/12/24 06:30 108/75 05/12/24 06:30 38.5 C H 113 H 28 H 90 05/12/24 06:00 113/80 05/12/24 06:00 38.7 C H 114 H 30 H 95 05/12/24 05:48 38.8 C H 112 H 30 H 96 05/12/24 05:45 110/81 05/12/24 05:45 110/81 05/12/24 05:30 38.9 C H 110 H 32 H 96 05/12/24 05:27 39.0 C H 112 H 30 H 95 05/12/24 05:18 Nasal Cannula 05/12/24 05:03 39.1 C H 120 H 35 H 90 05/12/24 05:00 100/81 05/12/24 05:00 100/05/12/24 05:00 10005/12/24 04:54 123 H 15 95 05/12/24 04:48 39.1 C H 122 H 39 H 96 05/12/24 04:33 39.1 C H 127 H 42 H 92 05/12/24 04:30 150/105 H 05/12/24 04:27 39.0 C H 135 H 50 H 93 05/12/24 04:21 39.0 C H 126 H 36 H 98 05/12/24 04:15 155/95 H 05/12/24 04:11 125 H 148/101 H 05/12/24 04:06 39.0 C H 128 H 44 H 96 05/12/24 04:00 148/101 H 05/12/24 04:00 148/101 H 05/12/24 03:52 149/108 H 05/12/24 03:27 97 05/12/24 03:27 125 H O2 Del Method O2 Flow Rate O2 Flow Rate 05/12/24 14:48 05/12/24 14:00 05/12/24 13:54 05/12/24 13:01 05/12/24 12:57 05/12/24 12:00 05/12/24 12:00 05/12/24 12:00 2 05/12/24 11:00 05/12/24 11:00 05/12/24 10:15 05/12/24 10:12 05/12/24 10:03 05/12/24 10:00 05/12/24 09:57 05/12/24 09:45 05/12/24 09:45 05/12/24 09:30 05/12/24 09:30 05/12/24 09:27 05/12/24 09:16 05/12/24 09:09 05/12/24 09:03 05/12/24 09:00 05/12/24 09:00 05/12/24 08:57 05/12/24 08:46 05/12/24 08:08 05/12/24 08:00 05/12/24 08:00 2 05/12/24 08:00 2 05/12/24 07:39 05/12/24 07:30 05/12/24 07:00 05/12/24 07:00 05/12/24 06:45 05/12/24 06:45 05/12/24 06:30 05/12/24 06:30 05/12/24 06:00 05/12/24 06:00 05/12/24 05:48 05/12/24 05:45 05/12/24 05:45 05/12/24 05:30 05/12/24 05:27 05/12/24 05:18 4 05/12/24 05:03 05/12/24 05:00 05/12/24 05:00 05/12/24 05:00 05/12/24 04:54 05/12/24 04:48 05/12/24 04:33 05/12/24 04:30 05/12/24 04:27 05/12/24 04:21 05/12/24 04:15 05/12/24 04:11 05/12/24 04:06 05/12/24 04:00 05/12/24 04:00 05/12/24 03:52 05/12/24 03:27 Nasal Cannula 2 05/12/24 03:27 PG Care Time/CCT Total # of Minutes Spent Total Time Spent with Patient: Total time spent is greater than 50% in coordination of care (as documented) at patient's floor/unit and/or counseling patient: Coding Level of Care Code 54110 SUB INP/OBS CARE 2/35MIN Diagnoses Acute pancreatitis K85.90 Alcoholism /alcohol abuse F10.20
[2024-05-12] MEDS: CHECK CLONIDINE PATCH PLACEMENT SCH (15:07)
[2024-05-12] MEDS: PHENobarbital sodium 65 MG/ML VIAL IV PRN (15:37)
[2024-05-12] MEDS ORDERED: PHENobarbital sodium 65 MG/ML VIAL IV STA ×2 (16:31→19:13)
--- NOTE | 2024-05-12 17:15 | Hospitalist Progress Note ---
Date of Service May 12, 2024 delayed entry date of service noted above Assessment & Plan (1) Acute pancreatitis: Plan: likely secondary to alcoholism r/o Cholelithiasis r/o hypertriglyceridemia CT abd: 1. Findings compatible with acute interstitial edematous pancreatitis. No pancreatic ductal dilation or acute peripancreatic fluid collections. 2. Reactive edema within the lesser sac/mesentery with trace abdominal pelvic ascites. 3. Wall thickening of the distal stomach and duodenum is likely reactive. A primary duodenitis/gastritis considered less likely. 4. No bowel obstruction or pneumoperitoneum. 5. Hepatomegaly with hepatic steatosis. 6. Normal appendix. ACT 112: Negative or not required by law. LR 200cc/hr NPO PRN Morphine, Dilaudid Gallbladder US IV Zosyn monitor electrolytes closely GI consult 05/13 Lipase improving Continue IV Zosyn (2) Metabolic acidosis: Plan: VBG stat: Bicarb 10, pH 7.19 Lactic acid: Negative Bicarb drip ordered Resolved (3) Alcoholism /alcohol abuse: Plan: Alcohol withdrawal Alc withdrawal protocol- Librium, Ativan PRN Monitor closely 05/12 Transition from Precedex to phenobarbital taper Monitor closely (4) Hypertension: Plan: PRN hydralazine Monitor closely Admission and Anticipated Discharge Date Admission Date: May 11, 2024 Subjective Follow-up for acute pancreatitis, alcohol withdrawal, etc. Events overnight noted, patient transferred to ICU in light of progressive alcohol withdrawal/DTs Status post Precedex, transition to phenobarbital Discussed with RN at the bedside Seen resting in bed, very lethargic, responds to verbal stimuli Answers a few questions Denies pain, shortness of breath Review of Systems Review of Systems: all noted and negative except for above Physical Exam 2 Physical Exam: General- Lethargic,not in distress, Breathing- no effort or accessory muscle use Eyes- anicteric Neck- no JVD Lungs- clear breath sounds bilaterally, no rales/wheezes Heart- Mild tachycardic rate, regular rhythm; no murmurs Abdomen- normal bowel sounds, nondistended, soft, nontender Extremities- no pretibial edema, no calf tenderness Neuro- Lethargic Skin- warm & dry Results & Data Results & Data Vital Signs (Past 12 Hours) Vital Signs Temp Pulse Resp BP Pulse Ox O2 Del Method O2 Del Method 05/12/24 17:08 135 H 42 H 160/105 H 05/12/24 16:15 140 H 32 H 145/95 H 05/12/24 16:07 145/95 H 05/12/24 16:06 39.4 C H 141 H 43 H 92 05/12/24 16:03 39.3 C H 141 H 16 90 05/12/24 16:00 138/75 05/12/24 15:57 39.3 C H 145 H 19 05/12/24 15:37 131 H 30 H 144/107 H 05/12/24 15:23 Nasal Cannula 05/12/24 15:23 Nasal Cannula 05/12/24 15:00 144/107 H 05/12/24 15:00 144/107 H 05/12/24 15:00 39.1 C H 131 H 21 91 05/12/24 14:48 130 H 41 H 154/105 H 05/12/24 14:00 154/105 H 05/12/24 13:54 38.8 C H 127 H 41 H 93 05/12/24 13:01 110/87 05/12/24 12:57 38.5 C H 122 H 18 91 05/12/24 12:00 144/87 H 05/12/24 12:00 38.3 C H 122 H 40 H 89 L 05/12/24 12:00 Nasal Cannula 05/12/24 11:00 146/97 H 05/12/24 11:00 38.1 C H 112 H 40 H 97 05/12/24 10:15 120/84 05/12/24 10:12 38.0 C H 100 H 30 H 97 05/12/24 10:03 38.0 C H 103 H 31 H 97 05/12/24 10:00 114/82 05/12/24 09:57 38.0 C H 105 H 35 H 98 05/12/24 09:45 117/81 05/12/24 09:45 38.0 C H 98 H 28 H 98 05/12/24 09:30 109/73 05/12/24 09:30 109/73 05/12/24 09:27 38.0 C H 103 H 30 H 97 05/12/24 09:16 108/77 05/12/24 09:09 38.0 C H 105 H 31 H 96 05/12/24 09:03 38.0 C H 97 H 31 H 96 05/12/24 09:00 100/70 05/12/24 09:00 100/70 05/12/24 08:57 38.0 C H 97 H 31 H 95 05/12/24 08:46 101/69 05/12/24 08:08 92/71 L 05/12/24 08:00 38.1 C H 100 H 31 H 98 05/12/24 08:00 Nasal Cannula 05/12/24 08:00 Nasal Cannula 05/12/24 07:39 38.1 C H 113 H 32 H 97 05/12/24 07:30 106/74 05/12/24 07:00 38.4 C H 110 H 28 H 96 05/12/24 07:00 104/78 05/12/24 06:45 101/76 05/12/24 06:45 38.4 C H 113 H 30 H 97 05/12/24 06:30 108/75 05/12/24 06:30 38.5 C H 113 H 28 H 90 05/12/24 06:00 113/80 05/12/24 06:00 38.7 C H 114 H 30 H 95 05/12/24 05:48 38.8 C H 112 H 30 H 96 05/12/24 05:45 110/81 05/12/24 05:45 110/81 05/12/24 05:30 38.9 C H 110 H 32 H 96 05/12/24 05:27 39.0 C H 112 H 30 H 95 05/12/24 05:18 Nasal Cannula O2 Flow Rate O2 Flow Rate 05/12/24 17:08 05/12/24 16:15 05/12/24 16:07 05/12/24 16:06 05/12/24 16:03 05/12/24 16:00 05/12/24 15:57 05/12/24 15:37 05/12/24 15:23 2 05/12/24 15:23 2 05/12/24 15:00 05/12/24 15:00 05/12/24 15:00 05/12/24 14:48 05/12/24 14:00 05/12/24 13:54 05/12/24 13:01 05/12/24 12:57 05/12/24 12:00 05/12/24 12:00 05/12/24 12:00 2 05/12/24 11:00 05/12/24 11:00 05/12/24 10:15 05/12/24 10:12 05/12/24 10:03 05/12/24 10:00 05/12/24 09:57 05/12/24 09:45 05/12/24 09:45 05/12/24 09:30 05/12/24 09:30 05/12/24 09:27 05/12/24 09:16 05/12/24 09:09 05/12/24 09:03 05/12/24 09:00 05/12/24 09:00 05/12/24 08:57 05/12/24 08:46 05/12/24 08:08 05/12/24 08:00 05/12/24 08:00 2 05/12/24 08:00 2 05/12/24 07:39 05/12/24 07:30 05/12/24 07:00 05/12/24 07:00 05/12/24 06:45 05/12/24 06:45 05/12/24 06:30 05/12/24 06:30 05/12/24 06:00 05/12/24 06:00 05/12/24 05:48 05/12/24 05:45 05/12/24 05:45 05/12/24 05:30 05/12/24 05:27 05/12/24 05:18 4 all noted and reviewed including below
[2024-05-12 18:49] LABS: BUN Creatinine Ratio 6.7 (10-20); Creatinine Clr Calc Pharmacy 96.5 ml/min; Potassium 3.7 mmol/L (3.5-5.1)
[2024-05-12 19:11] LABS: Magnesium 2.2 mg/dl (1.7-2.4); Phosphorus 1.3 mg/dl (2.5-4.9)
[2024-05-12] MEDS: SODIUM PHOSPHATE 30 MMOL in DEXTROSE 5% 500 ML IV ONE (19:41)
[2024-05-12] MEDS: THIAMINE HCL 200 MG in SODIUM CHLORIDE 0.9% 50 ML IV SCH (19:43)
[2024-05-13 04:56] LABS: Basophils # (auto) 0.05 K/uL (0.00-0.20); Basophils % (auto) 0.4 %; Eosinophils # (auto) 0.02 K/uL (0.00-0.50); Eosinophils % (auto) 0.2 %; Hematocrit (blood only) 42.2 % (42.0-52.0); Hemoglobin 15.3 g/dl (14.0-18.0); Immature Granulocytes # (auto) 0.23 K/uL (0.01-0.20); Immature Granulocytes % (auto) 1.8 %; Lymphocytes % (auto) 6.9 %; Mean Corpuscular Hemoglobin 35.3 pg (25.0-34.0); Mean Corpuscular Hgb Conc 36.3 g/dL (32.0-36.0); Mean Corpuscular Volume 97.2 fL (80.0-100.0); Mean Platelet Volume 10.6 fL (9.4-12.4); Monocytes # (auto) 0.77 K/uL (0.11-0.59); Monocytes % (auto) 5.9 %; Neutrophils # (auto) 11.16 K/uL (1.40-6.50); Neutrophils % (auto) 84.8 %; Platelet Count 146 K/uL (130-400); RDW Coefficient of Variation 13.5 % (11.5-14.5); RDW Standard Deviation 48.6 fL (36.4-46.3); Red Blood Count 4.34 M/uL (4.70-6.10); White Blood Count 13.13 K/ul (4.8-10.8)
[2024-05-13 05:01] LABS: Base Excess ABG 0.1 mEq/L (-9-1.8); HCO3 ABG 26 mmol/L (19-24); Oxygen Saturation ABG 99.1 % (90-95); PCO2 ABG 46 mmHg (35-46); PO2 ABG 105 mmHg (80-95); pH ABG 7.36 (7.35-7.45)
[2024-05-13 05:09] LABS: Allen Test Pos (Pos)
[2024-05-13] MEDS: PHENobarbital sodium 65 MG/ML VIAL IV PRN (05:25)
[2024-05-13 05:34] LABS: Albumin Level 2.7 gm/dl (3.4-5.0); BUN Creatinine Ratio 8.1 (10-20); Bilirubin Direct 0.8 mg/dl (0-0.2); Bilirubin,Total 1.4 mg/dl (0.2-1.0); Calcium 7.7 mg/dl (8.6-10.3); Creatinine Clr Calc Pharmacy 116.7 ml/min; Phosphorus 3.2 mg/dl (2.5-4.9); Potassium 3.6 mmol/L (3.5-5.1); Total Protein 5.5 gm/dl (6.0-8.3)
[2024-05-13] MEDS: POTASSIUM CHLORIDE / WTR 10 MEQ/100 ML PLCT IV SCH (06:46)
[2024-05-13] MEDS: MAGNESIUM SULFATE / D5W 1 GM/100 ML BAG IV ONE (06:46)
[2024-05-13] MEDS ORDERED: PHENobarbital sodium 65 MG/ML VIAL IV STA (08:52)
[2024-05-13] MEDS: PHENobarbitaL 30 MG TAB PO SCH (08:56)
--- NOTE | 2024-05-13 09:04 | Critical Care Progress Note ---
Date of Service May 13, 2024 Assessment & Plan (1) Acute pancreatitis: (2) Alcoholism /alcohol abuse: (3) Metabolic acidosis: Plan Impression: 58-year-old male with extensive history of alcohol abuse admitted with alcohol induced pancreatitis and transferred to ICU for alcohol withdrawal/delirium tremens 24-hour events: Patient transferred to the ICU. Precedex was turned off and he was transition to a phenobarbital protocol. He received 2 additional liters of crystalloid with improvement in his tachycardia. He remains obtunded. Recommendations: Neuro -still significantly agitated. He missed the third dose of his load last evening so we will give an additional 400 mg IV phenobarb now and transition him to the maintenance dose of 65 mg every 12 hours. Will use Haldol for breakthrough agitation. Continue high-dose thiamine and folate. If unable to control with phenobarb, will transition back to Precedex. Abstinence from alcohol in the future recommended Cardiac -tachycardia and hypertensive. Responded favorably to fluid administration. Continue maintenance fluids. May need albumin replacement. Continue Catapres TTS patch. Follow QTc Respiratory -splinting due to abdominal distention. Continue oxygen. No evidence of hypercapnia on blood gas. Will follow closely. GI -n.p.o. due to mental status. PPI in place. No signs of significant abdominal compartment syndrome currently (kidney numbers appropriate, respirations not compromised). Lipase decreasing down to normal. LFTs normalizing. If persistently febrile, may repeat abdominal ultrasound to see whether or not there is ascites that needs to be drained/sampled RENAL/LYTES -renal function normal. Replacing electrolytes as needed. Will replete calcium today. Acid-base status acceptable. Initiate low-dose diuretics when hemodynamically stable ENDO - glycemic control per protocol. HEME -no acute issues. ID -white blood cell count elevated and procalcitonin elevated of unclear etiology. Empirically placed on antibiotics in the form of Zosyn. Remains intermittently febrile. Blood cultures no growth to date. Procalcitonin decreasing today. Complete 3 days of empiric Zosyn LINES/TUBES/DRAINS - ASIF Neves (Day #1) DVT PROPHYLAXIS - Enoxaparin Disposition: ICU I have personally spent 45 minutes of critical care time in the direct management of this patient. This is a life/limb threatening event. This includes time spent evaluating patient, direct bedside care, chart review, placing orders, interpretation of diagnostic studies, discussion with consultants, patient, and family members, as well as other required patient management activities. This time is exclusive of all separately billable procedures, and teaching time and separate from and in addition to any other critical care service time. Thank you for allowing us to participate in the care of this patient. Will continue to follow with you Admission and Anticipated Discharge Date Admission Date: May 11, 2024 Subjective Patient seen and examined. EMR reviewed. Discussed with bedside critical care nurse and on multidisciplinary rounds as well as with critical care overnight CHAPO. Patient remains intermittently agitated. He is responding favorably to Review of Systems Review of Systems: Unobtainable due to reduced consciousness Physical Exam Constitutional: + ill appearing, + altered mental status , + disheveled and + overweight Eyes: PERRL, conjunctivae normal, anicteric sclerae ENMT: Mouth: + dry oral mucous membranes Neck: trachea midline, no thyromegaly Respiratory: + labored breathing, + tachypneic and sy mmetric chest movement Auscultation: + diminished lung sounds; no rales, no rhonchi and no wheezes Cardiovascular: Rate/Rhythm: regular rhythm and + tachycardic Heart Sounds: no murmur Vessels: normal peripheral pulses; no JVD Gastrointestinal (Abdomen): Inspection/Auscultation: + hypoactive bowel sounds; no visible herniation, caput medusae absent and Cervantes-Tran sign absent Percussion/Palpation: + abdomen tender, + hepatomegaly and + dullness to percussion; no pulsatile mass and no fluid wave No significant fluid wave Musculoskeletal: Head/Neck/Chest: normocephalic and head atraumatic Extremities: extremities normal to inspection; no cyanosis Skin: no rashes, warm and dry Neurologic: moves all extremities and + confused; no focal motor deficits Genitourinary: Buried penis. Neves in place draining milky turbid urine Results & Data Results & Data Vital Signs (Past 12 Hours) Vital Signs Temp Pulse Resp BP Pulse Ox Pulse Ox O2 Del Method 05/13/24 08:09 38.6 C H 115 H 34 H 96 05/13/24 08:01 147/103 H 05/13/24 08:00 Nasal Cannula 05/13/24 07:57 38.6 C H 113 H 27 H 95 05/13/24 07:00 38.7 C H 119 H 30 H 142/99 H 100 05/13/24 06:00 146/103 H 05/13/24 06:00 146/103 H 05/13/24 05:57 38.8 C H 119 H 37 H 93 05/13/24 05:25 132 H 32 H 147/98 H 05/13/24 05:05 147/98 H 05/13/24 05:05 147/98 H 05/13/24 05:03 38.3 C H 124 H 38 H 91 05/13/24 05:01 229/192 H 05/13/24 05:00 38.3 C H 126 H 28 H 91 05/13/24 04:09 38.2 C H 126 H 36 H 91 05/13/24 04:00 92 05/13/24 03:03 38.2 C H 127 H 30 H 91 05/13/24 03:01 162/98 H 05/13/24 03:01 162/98 H 05/13/24 03:01 162/98 H 05/13/24 02:45 38.3 C H 128 H 27 H 92 05/13/24 02:12 38.3 C H 128 H 24 93 05/13/24 02:00 149/104 H 05/13/24 02:00 149/104 H 05/13/24 01:57 38.3 C H 127 H 38 H 92 05/13/24 01:09 38.4 C H 124 H 33 H 91 05/13/24 01:00 140/103 H 05/13/24 01:00 140/103 H 05/13/24 00:30 38.6 C H 128 H 39 H 90 05/13/24 00:15 38.6 C H 131 H 26 H 92 05/13/24 00:00 165/102 H 05/13/24 00:00 91 05/12/24 23:51 38.6 C H 129 H 30 H 89 L 05/12/24 23:03 38.6 C H 132 H 33 H 90 05/12/24 23:00 150/111 H 05/12/24 23:00 150/111 H 05/12/24 23:00 150/111 H 05/12/24 22:57 38.5 C H 131 H 35 H 88 L 05/12/24 22:09 38.5 C H 132 H 39 H 89 L 05/12/24 22:00 152/98 H 05/12/24 21:36 38.2 C H 135 H 42 H 91 O2 Del Method O2 Flow Rate O2 Flow Rate 05/13/24 08:09 05/13/24 08:01 05/13/24 08:00 2 05/13/24 07:57 05/13/24 07:00 05/13/24 06:00 05/13/24 06:00 05/13/24 05:57 05/13/24 05:25 05/13/24 05:05 05/13/24 05:05 05/13/24 05:03 05/13/24 05:01 05/13/24 05:00 05/13/24 04:09 05/13/24 04:00 Nasal Cannula 4 05/13/24 03:03 05/13/24 03:01 05/13/24 03:01 05/13/24 03:01 05/13/24 02:45 05/13/24 02:12 05/13/24 02:00 05/13/24 02:00 05/13/24 01:57 05/13/24 01:09 05/13/24 01:00 05/13/24 01:00 05/13/24 00:30 05/13/24 00:15 05/13/24 00:00 05/13/24 00:00 Nasal Cannula 4 05/12/24 23:51 05/12/24 23:03 05/12/24 23:00 05/12/24 23:00 05/12/24 23:00 05/12/24 22:57 05/12/24 22:09 05/12/24 22:00 05/12/24 21:36 Critical Care Results & Data Vital Signs (Past 12 Hours) Vital Signs Temp Pulse Resp BP Pulse Ox Pulse Ox O2 Del Method 05/13/24 08:09 38.6 C H 115 H 34 H 96 05/13/24 08:01 147/103 H 05/13/24 08:00 Nasal Cannula 05/13/24 07:57 38.6 C H 113 H 27 H 95 05/13/24 07:00 38.7 C H 119 H 30 H 142/99 H 100 05/13/24 06:00 146/103 H 05/13/24 06:00 146/103 H 05/13/24 05:57 38.8 C H 119 H 37 H 93 05/13/24 05:25 132 H 32 H 147/98 H 05/13/24 05:05 147/98 H 05/13/24 05:05 147/98 H 05/13/24 05:03 38.3 C H 124 H 38 H 91 05/13/24 05:01 229/192 H 05/13/24 05:00 38.3 C H 126 H 28 H 91 05/13/24 04:09 38.2 C H 126 H 36 H 91 05/13/24 04:00 92 05/13/24 03:03 38.2 C H 127 H 30 H 91 05/13/24 03:01 162/98 H 05/13/24 03:01 162/98 H 05/13/24 03:01 162/98 H 05/13/24 02:45 38.3 C H 128 H 27 H 92 05/13/24 02:12 38.3 C H 128 H 24 93 05/13/24 02:00 149/104 H 05/13/24 02:00 149/104 H 05/13/24 01:57 38.3 C H 127 H 38 H 92 05/13/24 01:09 38.4 C H 124 H 33 H 91 05/13/24 01:00 140/103 H 05/13/24 01:00 140/103 H 05/13/24 00:30 38.6 C H 128 H 39 H 90 05/13/24 00:15 38.6 C H 131 H 26 H 92 05/13/24 00:00 165/102 H 05/13/24 00:00 91 05/12/24 23:51 38.6 C H 129 H 30 H 89 L 05/12/24 23:03 38.6 C H 132 H 33 H 90 05/12/24 23:00 150/111 H 05/12/24 23:00 150/111 H 05/12/24 23:00 150/111 H 05/12/24 22:57 38.5 C H 131 H 35 H 88 L 05/12/24 22:09 38.5 C H 132 H 39 H 89 L 05/12/24 22:00 152/98 H 05/12/24 21:36 38.2 C H 135 H 42 H 91 O2 Del Method O2 Flow Rate O2 Flow Rate 05/13/24 08:09 05/13/24 08:01 05/13/24 08:00 2 05/13/24 07:57 05/13/24 07:00 05/13/24 06:00 05/13/24 06:00 05/13/24 05:57 05/13/24 05:25 05/13/24 05:05 05/13/24 05:05 05/13/24 05:03 05/13/24 05:01 05/13/24 05:00 05/13/24 04:09 05/13/24 04:00 Nasal Cannula 4 05/13/24 03:03 05/13/24 03:01 05/13/24 03:01 05/13/24 03:01 05/13/24 02:45 05/13/24 02:12 05/13/24 02:00 05/13/24 02:00 05/13/24 01:57 05/13/24 01:09 05/13/24 01:00 05/13/24 01:00 05/13/24 00:30 05/13/24 00:15 05/13/24 00:00 05/13/24 00:00 Nasal Cannula 4 05/12/24 23:51 05/12/24 23:03 05/12/24 23:00 05/12/24 23:00 05/12/24 23:00 05/12/24 22:57 05/12/24 22:09 05/12/24 22:00 05/12/24 21:36 Lab & Micro Results (Past 24 Hours) RBC 4.34 M/uL (4.70-6.10) L 05/13/24 WBC 13.13 K/ul (4.8-10.8) H 05/13/24 Hgb 15.3 g/dl (14.0-18.0) 05/13/24 Hct 42.2 % (42.0-52.0) 05/13/24 MCV 97.2 fL (80.0-100.0) 05/13/24 MCH 35.3 pg (25.0-34.0) H 05/13/24 MCHC 36.3 g/dL (32.0-36.0) H 05/13/24 RDW Standard Deviation 48.6 fL (36.4-46.3) H 05/13/24 RDW Coefficient of Variation 13.5 % (11.5-14.5) 05/13/24 Plt Count 146 K/uL (130-400) 05/13/24 MPV 10.6 fL (9.4-12.4) 05/13/24 Neutrophils (%) (Auto) 84.8 % 05/13/24 Lymphocytes (%) (Auto) 6.9 % 05/13/24 Monocytes # (Auto) 0.77 K/uL (0.11-0.59) H 05/13/24 Eosinophils # (Auto) 0.02 K/uL (0.00-0.50) 05/13/24 Immature Granulocyte % (Auto) 1.8 % 05/13/24 Neutrophils # (Auto) 11.16 K/uL (1.40-6.50) H 05/13/24 Lymphocytes # (Auto) 0.90 K/uL (1.20-3.40) L 05/13/24 Monocytes # (Auto) 0.77 K/uL (0.11-0.59) H 05/13/24 Eosinophils # (Auto) 0.02 K/uL (0.00-0.50) 05/13/24 Basophils # (Auto) 0.05 K/uL (0.00-0.20) 05/13/24 Immature Granulocyte # (Auto) 0.23 K/uL (0.01-0.20) H 05/13 Na 138 mmol/L (136-145) 05/13/24 K 3.6 mmol/L (3.5-5.1) 05/13/24 Cl 107 mmol/L (98-107) 05/13/24 CO2 26 mmol/L (21-32) 05/13/24 Anion Gap 5 (3-11) 05/13/24 BUN 7 mg/dl (6-23) 05/13/24 Creatinine 0.86 mg/dl (0.6-1.4) 05/13/24 BUN/Creatinine Ratio 8.1 (10-20) L 05/13/24 Glu 176 mg/dl (70-99(Fasting)) H 05/13/24 Ca 7.7 mg/dl (8.6-10.3) L 05/13/24 Phosphorus Level 3.2 mg/dl (2.5-4.9) 05/13/24 Total Bilirubin 1.4 mg/dl (0.2-1.0) H 05/13/24 Direct Bilirubin 0.8 mg/dl (0-0.2) H 05/13/24 AST 37 U/L (13-39) 05/13/24 ALT 46 U/L (7-52) 05/13/24 Alkaline Phosphatase 59 U/L (34-104) 05/13/24 TP 5.5 gm/dl (6.0-8.3) L 05/13/24 Albumin 2.7 gm/dl (3.4-5.0) L 05/13/24 Mg 2.0 mg/dl (1.7-2.4) 05/13/24 04:38 Calcium Level 7.7 mg/dl (8.6-10.3) L 05/13/24 04:38 Arterial Blood pH 7.36 (7.35-7.45) 05/13/24 04:30 Arterial Blood Partial Pressure CO2 46 mmHg (35-46) 05/13/24 04 :30 Arterial Blood Partial Pressure O2 105 mmHg (80-95) H 05/13/24 04:30 Arterial Blood HCO3 26 mmol/L (19-24) H 05/13/24 04:30 Arterial Blood Base Excess 0.1 mEq/L (-9-1.8) 05/13/24 04:30 Arterial Blood Oxygen Saturation 99.1 % (90-95) H 05/13/24 04:3 0 Blood Gas Oxygen Given 6L 05/13/24 04:30 Inkos Test Pos (Pos) 05/13/24 04:30 Microbiology 05/12/24 04:34 Aerobic Blood Culture - Preliminary Blood No growth in Aerobic bottle after 24 hours. Anaerobic Blood Culture - Preliminary No growth in Anaerobic bottle after 24 hours. 05/12/24 04:34 Aerobic Blood Culture - Preliminary Blood No growth in Aerobic bottle after 24 hours. Anaerobic Blood Culture - Preliminary No growth in Anaerobic bottle after 24 hours. I & O Totals 24 Hours 05/12/24 05/13/24 05/14/24 06:59 06:59 06:59 Intake Total 5995.050 / 5995.050 6318.4119 / 6318.4119 422 / 422 Output Total 1025 / 1025 725 / 725 50 / 50 Balance 4970.050 / 4970.050 5593.4119 / 5593.4119 372 / 372 Cumulative 05/11/24 05:41 thru 05/13/24 08:33 Intake Total 68439.4619 Output Total 1800 Balance 19270.4619 RT Ventilator Mngmt (Last Documented) Ventilator Ordered Settings Respiratory Rate 34 05/13/24 08:09 Ventilator - PT Measurements Respiratory Rate 34 Coding Level of Care Code 06294 CRITICAL CARE 1ST 30-74M Diagnoses Acute pancreatitis K85.90 Alcoholism /alcohol abuse F10.20 Metabolic acidosis E87.20
[2024-05-13] MEDS: FUROSEMIDE INJ 20 MG/2 ML VIAL IV ONE (09:23)
[2024-05-13] MEDS: HALOPERIDOL LACTATE 5 MG/ML 1 ML VIAL IV PRN (09:23)
[2024-05-13] MEDS: CALCIUM GLUCONATE 1,000 MG/60 ML BAG IV SCH (09:24)
[2024-05-13] MEDS: ALBUMIN 25% 25 GM/100 ML VIAL IV SCH (09:24)
[2024-05-13] MEDS: PHENobarbital sodium 65 MG/ML VIAL IV SCH (09:56)
--- NOTE | 2024-05-13 11:30 | Communication Note ---
Date of Service: May 13, 2024 Patient is a 58 yo male in the ICU due to alcohol withdrawal. GI following for pancreatitis. Patient NPO due to sedation. Alcohol withdrawal protocol in place by primary team. IV fluid hydration is ongoing. No alarming LFT findings at present. GI will follow peripherally. If acute GI issues arise as patient becomes more alert & oriented, please re-consult GI.
--- NOTE | 2024-05-13 17:47 | Hospitalist Progress Note ---
Date of Service May 13, 2024 delayed entry date of service noted above Assessment & Plan (1) Acute pancreatitis: Plan: likely secondary to alcoholism r/o Cholelithiasis r/o hypertriglyceridemia CT abd: 1. Findings compatible with acute interstitial edematous pancreatitis. No pancreatic ductal dilation or acute peripancreatic fluid collections. 2. Reactive edema within the lesser sac/mesentery with trace abdominal pelvic ascites. 3. Wall thickening of the distal stomach and duodenum is likely reactive. A primary duodenitis/gastritis considered less likely. 4. No bowel obstruction or pneumoperitoneum. 5. Hepatomegaly with hepatic steatosis. 6. Normal appendix. ACT 112: Negative or not required by law. LR 200cc/hr NPO PRN Morphine, Dilaudid Gallbladder US IV Zosyn monitor electrolytes closely GI consult 05/13 Lipase improving Continue IV Zosyn 05/13 Lipase continues to improve On IV Zosyn (2) Metabolic acidosis: Plan: VBG stat: Bicarb 10, pH 7.19 Lactic acid: Negative Bicarb drip ordered Resolved (3) Alcoholism /alcohol abuse: Plan: Alcohol withdrawal Alc withdrawal protocol- Librium, Ativan PRN Monitor closely 05/12 Transition from Precedex to phenobarbital taper Monitor closely 05/13 Still febrile On IV phenobarbital taper (4) Hypertension: Plan: PRN hydralazine Monitor closely Admission and Anticipated Discharge Date Admission Date: May 11, 2024 Subjective ff up delirium tremens, alcohol withdrawal, etc seen resting in bed, lethargic awakened by verbal stimuli denies shortness of breath, abdominal pain No other new symptoms Review of Systems Review of Systems: all noted and negative except for above Physical Exam Physical Exam: General- Lethargic, breathing Without effort or accessory muscle use Eyes- anicteric Neck- no JVD Lungs- clear breath sounds bilaterally Heart- normal rate, regular rhythm; no murmurs Abdomen- normal bowel sounds, nondistended, soft, nontender Extremities- no pretibial edema, no calf tenderness Neuro- Lethargic Skin- warm & dry Results & Data Results & Data Vital Signs (Past 12 Hours) Vital Signs Temp Pulse Resp BP Pulse Ox Pulse Ox O2 Del Method 05/13/24 17:00 128/88 05/13/24 17:00 39.1 C H 104 H 29 H 98 05/13/24 16:00 157/100 H 05/13/24 16:00 157/100 H 05/13/24 16:00 38.9 C H 108 H 44 H 97 05/13/24 15:02 99 05/13/24 15:00 38.9 C H 105 H 28 H 97 05/13/24 14:12 38.8 C H 106 H 27 H 95 05/13/24 14:01 146/76 H 05/13/24 13:36 38.7 C H 111 H 19 96 05/13/24 13:09 38.6 C H 108 H 27 H 96 05/13/24 13:00 159/95 H 05/13/24 12:48 38.6 C H 116 H 29 H 95 05/13/24 12:06 38.5 C H 110 H 27 H 95 05/13/24 11:21 38.3 C H 109 H 25 H 98 05/13/24 11:00 152/102 H 05/13/24 10:57 38.4 C H 109 H 26 H 97 05/13/24 10:15 38.5 C H 112 H 28 H 95 05/13/24 10:00 137/88 05/13/24 09:54 38.5 C H 112 H 30 H 95 05/13/24 09:24 115 H 34 H 142/95 H 05/13/24 09:21 38.5 C H 113 H 32 H 96 05/13/24 09:00 142/95 H 05/13/24 08:57 38.5 C H 115 H 34 H 99 05/13/24 08:09 38.6 C H 115 H 34 H 96 05/13/24 08:01 147/103 H 05/13/24 08:00 Nasal Cannula 05/13/24 07:57 38.6 C H 113 H 27 H 95 05/13/24 07:00 38.7 C H 119 H 30 H 142/99 H 100 05/13/24 06:00 146/103 H 05/13/24 06:00 146/103 H 05/13/24 05:57 38.8 C H 119 H 37 H 93 O2 Del Method O2 Flow Rate O2 Flow Rate 05/13/24 17:00 05/13/24 17:00 05/13/24 16:00 05/13/24 16:00 05/13/24 16:00 05/13/24 15:02 Nasal Cannula 2 05/13/24 15:00 05/13/24 14:12 05/13/24 14:01 05/13/24 13:36 05/13/24 13:09 05/13/24 13:00 05/13/24 12:48 05/13/24 12:06 05/13/24 11:21 05/13/24 11:00 05/13/24 10:57 05/13/24 10:15 05/13/24 10:00 05/13/24 09:54 05/13/24 09:24 05/13/24 09:21 05/13/24 09:00 05/13/24 08:57 05/13/24 08:09 05/13/24 08:01 05/13/24 08:00 2 05/13/24 07:57 05/13/24 07:00 05/13/24 06:00 05/13/24 06:00 05/13/24 05:57 all noted and reviewed including below
[2024-05-13] MEDS ORDERED: Nursing to Pharmacy Communication SCH (20:15)
[2024-05-14] MEDS: INSULIN ASPART PER UNIT CHARGE SC SCH (00:25)
[2024-05-14 04:39] LABS: Basophils # (auto) 0.03 K/uL (0.00-0.20); Basophils % (auto) 0.3 %; Eosinophils # (auto) 0.11 K/uL (0.00-0.50); Eosinophils % (auto) 1.1 %; Hemoglobin 13.4 g/dl (14.0-18.0); Lymphocytes # (auto) 1.24 K/uL (1.20-3.40); Lymphocytes % (auto) 12.4 %; Mean Corpuscular Hemoglobin 34.9 pg (25.0-34.0); Mean Corpuscular Hgb Conc 35.3 g/dL (32.0-36.0); Mean Platelet Volume 11.1 fL (9.4-12.4); Monocytes # (auto) 0.66 K/uL (0.11-0.59); Monocytes % (auto) 6.6 %; Neutrophils # (auto) 7.89 K/uL (1.40-6.50); Neutrophils % (auto) 78.6 %; Platelet Count 122 K/uL (130-400); RDW Coefficient of Variation 13.8 % (11.5-14.5); RDW Standard Deviation 50.6 fL (36.4-46.3); Red Blood Count 3.84 M/uL (4.70-6.10); White Blood Count 10.03 K/ul (4.8-10.8)
[2024-05-14 05:07] LABS: Albumin Level 2.9 gm/dl (3.4-5.0); BUN Creatinine Ratio 9.2 (10-20); Bilirubin Direct 0.6 mg/dl (0-0.2); Bilirubin,Total 1.4 mg/dl (0.2-1.0); Calcium 8.4 mg/dl (8.6-10.3); Creatinine Clr Calc Pharmacy 115.3 ml/min; Magnesium 1.9 mg/dl (1.7-2.4); Phosphorus 1.7 mg/dl (2.5-4.9); Potassium 3.3 mmol/L (3.5-5.1); Total Protein 5.6 gm/dl (6.0-8.3)
[2024-05-14 05:08] LABS: INR 1.1 (0.9-1.1); Prothrombin Time 11.7 Seconds (9.0-12.0)
[2024-05-14] MEDS ORDERED: SODIUM PHOSPHATE 3 MMOL/1 ML INFUSION IV STA (05:25)
[2024-05-14] MEDS: MAGNESIUM SULFATE / D5W 1 GM/100 ML BAG IV SCH (06:07)
[2024-05-14] MEDS: POTASSIUM CHLORIDE / WTR 10 MEQ/100 ML PLCT IV SCH ×2 (06:07→17:37)
[2024-05-14] MEDS: SODIUM PHOSPHATE 21 MMOL in DEXTROSE 5% 500 ML IV ONE (07:07)
[2024-05-14] MEDS ORDERED: PHENobarbitaL 30 MG TAB PO SCH (08:45)
--- NOTE | 2024-05-14 10:47 | Critical Care Progress Note ---
Date of Service May 14, 2024 Assessment & Plan (1) Acute pancreatitis: (2) Alcoholism /alcohol abuse: (3) Metabolic acidosis: Plan Impression: 58-year-old male with extensive history of alcohol abuse admitted with alcohol induced pancreatitis and transferred to ICU for alcohol withdrawal/delirium tremens 24-hour events: Patient is doing much better on phenobarbital and as needed Haldol. No acute events overnight Recommendations: Neuro -agitation significantly improved. Continue phenobarb wean with Haldol for breakthrough agitation. Continue high-dose thiamine and folate. Abstinence from alcohol in the future recommended Cardiac -tachycardia and hypertensive. Much improved today. Continue maintenance fluids. May need albumin replacement. Increase Catapres TTS patch to 0.3. Follow QTc. Start low-dose diuretics Respiratory -splinting due to abdominal distention. Continue oxygen. No evidence of hypercapnia on blood gas. Will follow closely. GI -n.p.o. due to mental status. Patient would not tolerate feeding tube which would require increasing sedation and probable restraints. PPI in place. No signs of significant abdominal compartment syndrome currently (kidney numbers appropriate, respirations not compromised). Lipase decreasing down to normal. LFTs normalizing. Will check CT of the abdomen with contrast to evaluate for pseudocyst or pancreatic phlegmon/infection which may require additional drainage or antibiotics RENAL/LYTES -renal function normal. Replacing electrolytes as needed. Acid- base status acceptable. Start diuresis ENDO - glycemic control per protocol. HEME -no acute issues. ID -white blood cell count normal but fever curve remains elevated. Patient completed 3 days of empiric Zosyn. Will assess with CT of the abdomen and pelvis LINES/TUBES/DRAINS - PIV x2 Neves DVT PROPHYLAXIS - Enoxaparin Disposition: Will review CT scan. If unremarkable and continued supportive care, the patient likely can be transferred to the floor as his critical care issues have resolved. Admission and Anticipated Discharge Date Admission Date: May 11, 2024 Subjective Patient seen and examined. EMR reviewed. Discussed with bedside critical care nurse and on multidisciplinary rounds as well as with overnight critical care [facility]. Patient is more calm today. He has not required rescue doses of his medications in the last 24 hours. He is occasionally impulsive but overall appears to be responding favorably. He remains intermittently febrile. His white blood cell count is now returned to normal. Review of Systems Review of Systems: Unobtainable due to reduced consciousness Physical Exam Constitutional: + altered mental status, + disheveled an d + overweight Eyes: PERRL, conjunctivae normal, anicteric sclerae Neck: trachea midline, no thyromegaly Respiratory: symmetric chest movement; no labored breathing and not tachypneic Auscultation: + diminished lung sounds; no rales, no rhonchi and no wheezes Cardiovascular: Rate/Rhythm: regular rhythm and + tachycardic Heart Sounds: no murmur Vessels: normal peripheral pulses; no JVD Gastrointestinal (Abdomen): Inspection/Auscultation: + hypoactive bowel sounds; no visible herniation, caput medusae absent and Cervantes-Tran sign absent Percussion/Palpation: + abdomen tender and + dullness to percussion; no pulsatile mass and no fluid wave Mildly distended. No rebound or guarding Musculoskeletal: Head/Neck/Chest: normocephalic and head atraumatic Extremities: extremities normal to inspection; no cyanosis Skin: no rashes, warm and dry Neurologic: moves all extremities and + confused; no focal motor deficits Results & Data Results & Data Vital Signs (Past 12 Hours) Vital Signs Temp Pulse Resp BP Pulse Ox Pulse Ox O2 Del Method 05/14/24 08:14 104 H 37 H 134/93 05/14/24 07:48 Nasal Cannula 05/14/24 07:00 134/90 05/14/24 07:00 38.6 C H 98 H 29 H 95 Nasal Cannula 05/14/24 06:03 38.6 C H 103 H 23 128/99 95 Nasal Cannula 05/14/24 05:09 38.7 C H 100 H 28 H 142/109 H 94 Nasal Cannula 05/14/24 04:00 146/99 H 05/14/24 04:00 38.8 C H 100 H 28 H 98 Nasal Cannula 05/14/24 04:00 96 05/14/24 03:03 38.9 C H 96 H 26 H 98 Nasal Cannula 05/14/24 03:00 145/92 H 05/14/24 02:06 21 97 05/14/24 02:00 135/85 05/14/24 01:57 38.9 C H 106 H 18 98 Nasal Cannula 05/14/24 01:00 136/92 05/14/24 01:00 39.0 C H 106 H 21 98 Nasal Cannula 05/14/24 00:06 39.1 C H 105 H 28 H 158/98 H 99 Nasal Cannula 05/14/24 00:00 95 05/14/24 00:00 106 H 05/13/24 23:00 127/90 05/13/24 23:00 39.2 C H 107 H 34 H 95 Nasal Cannula O2 Del Method O2 Flow Rate O2 Flow Rate 05/14/24 08:14 05/14/24 07:48 2 05/14/24 07:00 05/14/24 07:00 2 05/14/24 06:03 2 05/14/24 05:09 2 05/14/24 04:00 05/14/24 04:00 2 05/14/24 04:00 Nasal Cannula 2 05/14/24 03:03 2 05/14/24 03:00 05/14/24 02:06 05/14/24 02:00 05/14/24 01:57 2 05/14/24 01:00 05/14/24 01:00 2 05/14/24 00:06 2 05/14/24 00:00 Nasal Cannula 2 05/14/24 00:00 05/13/24 23:00 05/13/24 23:00 2 Critical Care Results & Data Vital Signs (Past 12 Hours) Vital Signs Temp Pulse Resp BP Pulse Ox Pulse Ox O2 Del Method 05/14/24 08:14 104 H 37 H 134/93 05/14/24 07:48 Nasal Cannula 05/14/24 07:00 134/90 05/14/24 07:00 38.6 C H 98 H 29 H 95 Nasal Cannula 05/14/24 06:03 38.6 C H 103 H 23 128/99 95 Nasal Cannula 05/14/24 05:09 38.7 C H 100 H 28 H 142/109 H 94 Nasal Cannula 05/14/24 04:00 146/99 H 05/14/24 04:00 38.8 C H 100 H 28 H 98 Nasal Cannula 05/14/24 04:00 96 05/14/24 03:03 38.9 C H 96 H 26 H 98 Nasal Cannula 05/14/24 03:00 145/92 H 05/14/24 02:06 21 97 05/14/24 02:00 135/85 05/14/24 01:57 38.9 C H 106 H 18 98 Nasal Cannula 05/14/24 01:00 136/92 05/14/24 01:00 39.0 C H 106 H 21 98 Nasal Cannula 05/14/24 00:06 39.1 C H 105 H 28 H 158/98 H 99 Nasal Cannula 05/14/24 00:00 95 05/14/24 00:00 106 H 05/13/24 23:00 127/90 05/13/24 23:00 39.2 C H 107 H 34 H 95 Nasal Cannula O2 Del Method O2 Flow Rate O2 Flow Rate 05/14/24 08:14 05/14/24 07:48 2 05/14/24 07:00 05/14/24 07:00 2 05/14/24 06:03 2 05/14/24 05:09 2 05/14/24 04:00 05/14/24 04:00 2 05/14/24 04:00 Nasal Cannula 2 05/14/24 03:03 2 05/14/24 03:00 05/14/24 02:06 05/14/24 02:00 05/14/24 01:57 2 05/14/24 01:00 05/14/24 01:00 2 05/14/24 00:06 2 05/14/24 00:00 Nasal Cannula 2 05/14/24 00:00 05/13/24 23:00 05/13/24 23:00 2 Lab & Micro Results (Past 24 Hours) RBC 3.84 M/uL (4.70-6.10) L 05/14/24 WBC 10.03 K/ul (4.8-10.8) 05/14/24 Hgb 13.4 g/dl (14.0-18.0) L 05/14/24 Hct 38.0 % (42.0-52.0) L 05/14/24 MCV 99.0 fL (80.0-100.0) 05/14/24 MCH 34.9 pg (25.0-34.0) H 05/14/24 MCHC 35.3 g/dL (32.0-36.0) 05/14/24 RDW Standard Deviation 50.6 fL (36.4-46.3) H 05/14/24 RDW Coefficient of Variation 13.8 % (11.5-14.5) 05/14/24 Plt Count 122 K/uL (130-400) L 05/14/24 MPV 11.1 fL (9.4-12.4) 05/14/24 Neutrophils (%) (Auto) 78.6 % 05/14/24 Lymphocytes (%) (Auto) 12.4 % 05/14/24 Monocytes # (Auto) 0.66 K/uL (0.11-0.59) H 05/14/24 Eosinophils # (Auto) 0.11 K/uL (0.00-0.50) 05/14/24 Immature Granulocyte % (Auto) 1.0 % 05/14/24 Neutrophils # (Auto) 7.89 K/uL (1.40-6.50) H 05/14/24 Lymphocytes # (Auto) 1.24 K/uL (1.20-3.40) 05/14/24 Monocytes # (Auto) 0.66 K/uL (0.11-0.59) H 05/14/24 Eosinophils # (Auto) 0.11 K/uL (0.00-0.50) 05/14/24 Basophils # (Auto) 0.03 K/uL (0.00-0.20) 05/14/24 Immature Granulocyte # (Auto) 0.10 K/uL (0.01-0.20) 5 Na 143 mmol/L (136-145) 05/14/24 K 3.3 mmol/L (3.5-5.1) L 05/14/24 Cl 104 mmol/L (98-107) 05/14/24 CO2 32 mmol/L (21-32) 05/14/24 Anion Gap 7 (3-11) 05/14/24 BUN 8 mg/dl (6-23) 05/14/24 Creatinine 0.87 mg/dl (0.6-1.4) 05/14/24 BUN/Creatinine Ratio 9.2 (10-20) L 05/14/24 Glu 144 mg/dl (70-99(Fasting)) H 05/14/24 Ca 8.4 mg/dl (8.6-10.3) L 05/14/24 Phosphorus Level 1.7 mg/dl (2.5-4.9) L 05/14/24 Total Bilirubin 1.4 mg/dl (0.2-1.0) H 05/14/24 Direct Bilirubin 0.6 mg/dl (0-0.2) H 05/14/24 AST 28 U/L (13-39) 05/14/24 ALT 30 U/L (7-52) 05/14/24 Alkaline Phosphatase 49 U/L (34-104) 05/14/24 TP 5.6 gm/dl (6.0-8.3) L 05/14/24 Albumin 2.9 gm/dl (3.4-5.0) L 05/14/24 Mg 1.9 mg/dl (1.7-2.4) 05/14/24 03:41 Calcium Level 8.4 mg/dl (8.6-10.3) L 05/14/24 03:41 Prothromb Time International Ratio 1.1 (0.9-1.1) 05/14/24 03:4 1 Microbiology 05/12/24 04:34 Aerobic Blood Culture - Preliminary Blood No growth in Aerobic bottle after 48 hours. Anaerobic Blood Culture - Preliminary No growth in Anaerobic bottle after 48 hours. 05/12/24 04:34 Aerobic Blood Culture - Preliminary Blood No growth in Aerobic bottle after 48 hours. Anaerobic Blood Culture - Preliminary No growth in Anaerobic bottle after 48 hours. I & O Totals 24 Hours 05/13/24 05/14/24 05/15/24 06:59 06:59 06:59 Intake Total 6318.4119 / 6318.4119 1295.7945 / 1295.7945 727 / 727 Output Total 725 / 725 3895 / 3895 100 / 100 Balance 5593.4119 / 5593.4119 -2599.2055 / -2599.2055 627 / 627 Cumulative 05/11/24 05:41 thru 05/14/24 10:40 Intake Total 49922.2564 Output Total 5745 Balance 8591.2564 RT Ventilator Mngmt (Last Documented) Ventilator Ordered Settings Respiratory Rate 37 05/14/24 08:14 Ventilator - PT Measurements Respiratory Rate 37 Coding Level of Care Code 11080 SUB INP/OBS CARE 3/50MIN Diagnoses Acute pancreatitis K85.90 Alcoholism /alcohol abuse F10.20 Metabolic acidosis E87.20
[2024-05-14] MEDS: FUROSEMIDE 40 MG/4 ML VIAL IV ONE (11:19)
--- NOTE | 2024-05-14 11:39 | Communication Note ---
Date of Service: May 14, 2024 Patient is a 58 yo male with pancreatitis and alcohol withdrawal. Patient is NPO due to his mental status. He did not tolerate a feeding tube due to his agitated state. He has been ordered a triphasic pancreatic CT. T bili 1.4, D bili 0.6, AST 28, ALT 30, AP 49. GI will continue to follow peripherally, however should any new or worsening concerns arise please contact us.
[2024-05-14] MEDS: cloNIDine HCL 0.3 MG/24 HR TRANSDERM SYS TD SCH (12:25)
[2024-05-14] MEDS: CHECK CLONIDINE PATCH PLACEMENT SCH (13:17)
[2024-05-14] MEDS: OPTIRAY 320 100ml IV ONE (14:29)
--- NOTE | 2024-05-14 15:09 | CT Scan Report ---
CT pancreas 3-phase wo/w con HISTORY: 58 years-old Male pancreatitis, phlegmon? Acute abdominal pain with pancreatitis COMPARISON: 05/11/2024 TECHNIQUE: CT abdomen was obtained with and without IV contrast utilizing pancreatic protocol. FINDINGS: Cardiomegaly with coronary artery calcifications. Small left pleural effusion is new from prior. Depe ndent left greater than right bibasilar opacities favor atelectasis. No pneumatosis or pneumoperitone um. Hepatomegaly with hepatic steatosis. Patency of the hepatic and portal veins. Unremarkable spleen and adrenal glands. Mild gallbladder wall thickening. No cholelithiasis or biliary ductal dilation. Unre markable kidneys. No hydronephrosis. Subcentimeter hypodense focus of the superior pole right kidney, too small to characterize.a Atherosclerosis of the aorta without aneurysm. Subcentimeter retroperito les lymph nodes. 1.1 x 1.0 cm nodules in the upper abdomen image 108 is suggestive of an additional lymph node. No bowel obstruction. Worsening small bowel ileus. There is mild wall thickening noted within the dis pretty stomach and duodenum. No bowel obstruction. Trace abdominal ascites. There is interstitial and pe ripancreatic edema redemonstrated which has progressed from the prior study. Additionally, there is p atchy decreased enhancement noted throughout the body and tail of the pancreas. No pancreatic ductal dilation or peripancreatic fluid collection. Patent splenic artery. There are a few nonocclusive thro mbi noted within the splenic vein. Patent portal and superior mesenteric veins. No acute fracture. Mi nimal superior endplate compression at T12 is likely chronic IMPRESSION: 1. Progressively worsened acute pancreatitis with decreased enhancement involving the pancreatic body and tail suggestive of developing necrotizing pancreatitis. No pancreatic ductal dilation or acute p eripancreatic fluid collections. 2. Progressive reactive edema within the lesser sac/mesentery with trace abdominal pelvic ascites. 3. Rectal wall thickening of the distal stomach and duodenum with ileus. 4. Interval development of nonocclusive thrombi within the splenic vein. 5. No bowel obstruction or pneumoperitoneum. 6. Hepatomegaly with hepatic steatosis. ACT 112: Negative or not required by law. The above report was generated using voice recognition software. It may contain grammatical, syntax o r spelling errors. Electronically signed by: Catalino Lei M.D. 05/14/2024 3:07 PM
[2024-05-14 16:34] LABS: Calcium 8.2 mg/dl (8.6-10.3); Potassium 3.6 mmol/L (3.5-5.1)
[2024-05-14 16:40] LABS: BUN Creatinine Ratio 9.2 (10-20); Creatinine Clr Calc Pharmacy 115.5 ml/min
[2024-05-14] MEDS ORDERED: chlordiazePOXIDE HCl 5 MG CAP PO SCH (18:00)
--- NOTE | 2024-05-14 20:22 | Hospitalist Progress Note ---
Date of Service May 14, 2024 Assessment & Plan (1) Acute pancreatitis: Plan: likely secondary to alcoholism CT abd: 1. Findings compatible with acute interstitial edematous pancreatitis. No pancreatic ductal dilation or acute peripancreatic fluid collections. 2. Reactive edema within the lesser sac/mesentery with trace abdominal pelvic ascites. 3. Wall thickening of the distal stomach and duodenum is likely reactive. A primary duodenitis/gastritis considered less likely. 4. No bowel obstruction or pneumoperitoneum. 5. Hepatomegaly with hepatic steatosis. 6. Normal appendix. ACT 112: Negative or not required by law. Gallbladder US: 1. Nonspecific borderline gallbladder wall thickening without cholelithiasis. 2. Hepatic steatosis. 3. No biliary ductal dilation. 4. Please refer to the same day CT abdomen and pelvis study for discussion of the acute pancreatitis. given LR 200cc/hr NPO PRN Morphine, Dilaudid GI consulted 05/[address] pancreas: 1. Progressively worsened acute pancreatitis with decreased enhancement involving the pancreatic body and tail suggestive of developing necrotizing pancreatitis. No pancreatic ductal dilation or acute peripancreatic fluid colle ctions. 2. Progressive reactive edema within the lesser sac/mesentery with trace abdominal pelvic ascites. 3. Rectal wall thickening of the distal stomach and duodenum with ileus. 4. Interval development of nonocclusive thrombi within the splenic vein. 5. No bowel obstruction or pneumoperitoneum. 6. Hepatomegaly with hepatic steatosis. remains on NPO (2) Metabolic acidosis: Plan: VBG stat: Bicarb 10, pH 7.19 Lactic acid: Negative Bicarb drip ordered Resolved (3) Alcoholism /alcohol abuse: Plan: Alcohol withdrawal Alc withdrawal protocol- Librium, Ativan PRN transferred to ICU for worsening withdrawal, possible DTs transitioned to Precedex then Phenobarbital 05/14 continue Phenobarbital taper also on Clonidine (4) Hypertension: Plan: on Clonidine PRN hydralazine Monitor closely Disposition lives at home Admission and Anticipated Discharge Date Admission Date: May 11, 2024 Subjective ff up for acute pancreatitis, alcohol withdrawal, etc seen resting in bed, very drowsy awakened by verbal stimuli feels ok denies abdominal pain, shortness of breath drifts back to sleep easily no other issues 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 [employer] Review of Systems: all noted and negative except for above Physical Exam Physical Exam: General- drowsy, breathing without effort or accessory muscle use Eyes- anicteric Neck- no JVD Lungs- clear breath sounds bilaterally Heart- normal rate, regular rhythm; no murmurs Abdomen- normal bowel sounds, nondistended, soft, nontender Extremities- no pretibial edema, no calf tenderness Neuro- drowsy, no gross focal neurologic deficits Skin- warm & dry Results & Data Results & Data Vital Signs (Past 12 Hours) Vital Signs Temp Pulse Resp BP Pulse Ox O2 Del Method O2 Flow Rate 05/14/24 19:17 116 H 28 H 139/91 05/14/24 17:12 39.2 C H 108 H 29 H 93 05/14/24 17:00 123/90 05/14/24 17:00 123/90 05/14/24 16:56 39.2 C H 105 H 27 H 92 05/14/24 16:02 39.1 C H 99 H 26 H 96 05/14/24 16:00 132/89 05/14/24 16:00 132/89 05/14/24 16:00 132/89 05/14/24 15:56 39.1 C H 100 H 24 96 05/14/24 15:02 39.2 C H 111 H 18 97 05/14/24 15:00 125/82 05/14/24 14:53 39.2 C H 104 H 28 H 97 05/14/24 14:39 122/85 05/14/24 14:00 160/102 H 05/14/24 13:59 107 H 28 H 158/100 H 05/14/24 13:48 38.9 C H 116 H 27 H 92 Nasal Cannula 2 05/14/24 13:27 38.9 C H 109 H 19 89 L Room Air 05/14/24 13:00 158/100 H 05/14/24 12:54 38.8 C H 109 H 19 05/14/24 12:21 38.7 C H 102 H 25 H 90 05/14/24 11:06 38.7 C H 98 H 28 H 95 Nasal Cannula 2 05/14/24 11:00 156/124 H 05/14/24 10:45 38.7 C H 107 H 21 96 05/14/24 10:03 38.7 C H 101 H 28 H 93 05/14/24 10:00 138/93 05/14/24 09:01 143/89 H 05/14/24 09:00 38.8 C H 110 H 16 95 all noted and reviewed including below
[2024-05-15 04:23] LABS: Basophils # (auto) 0.02 K/uL (0.00-0.20); Basophils % (auto) 0.3 %; Eosinophils # (auto) 0.14 K/uL (0.00-0.50); Hematocrit (blood only) 41.2 % (42.0-52.0); Hemoglobin 14.7 g/dl (14.0-18.0); Immature Granulocytes # (auto) 0.12 K/uL (0.01-0.20); Immature Granulocytes % (auto) 1.7 %; Lymphocytes # (auto) 0.93 K/uL (1.20-3.40); Lymphocytes % (auto) 13.4 %; Mean Corpuscular Hemoglobin 34.9 pg (25.0-34.0); Mean Corpuscular Hgb Conc 35.7 g/dL (32.0-36.0); Mean Corpuscular Volume 97.9 fL (80.0-100.0); Mean Platelet Volume 11.5 fL (9.4-12.4); Monocytes # (auto) 0.79 K/uL (0.11-0.59); Monocytes % (auto) 11.4 %; Neutrophils # (auto) 4.94 K/uL (1.40-6.50); Neutrophils % (auto) 71.2 %; Platelet Count 127 K/uL (130-400); RDW Coefficient of Variation 13.6 % (11.5-14.5); RDW Standard Deviation 49.3 fL (36.4-46.3); Red Blood Count 4.21 M/uL (4.70-6.10); White Blood Count 6.94 K/ul (4.8-10.8)
[2024-05-15 04:45] LABS: Alanine Aminotransferase 26 U/L (7-52); Albumin Level 2.9 gm/dl (3.4-5.0); Alkaline Phosphatase 67 U/L (34-104); Anion Gap 5 (3-11); Aspartate Aminotransferase 34 U/L (13-39); BUN Creatinine Ratio 10.6 (10-20); Bilirubin,Total 1.3 mg/dl (0.2-1.0); Blood Urea Nitrogen 9 mg/dl (6-23); Calcium 8.2 mg/dl (8.6-10.3); Carbon Dioxide 37 mmol/L (21-32); Chloride 99 mmol/L (98-107); Creatinine Clr Calc Pharmacy 118.2 ml/min; Glucose 108 mg/dl (70-99(Fasting)); Magnesium 2.2 mg/dl (1.7-2.4); Phosphorus 1.6 mg/dl (2.5-4.9); Potassium 3.7 mmol/L (3.5-5.1); Sodium 141 mmol/L (136-145); Total Protein 6.1 gm/dl (6.0-8.3)
[2024-05-15] MEDS ORDERED: SODIUM PHOSPHATE 3 MMOL/1 ML INFUSION IV STA (04:51)
[2024-05-15] MEDS: SODIUM PHOSPHATE 21 MMOL in DEXTROSE 5% 500 ML IV ONE (05:22)
[2024-05-15] MEDS: POTASSIUM CHLORIDE / WTR 10 MEQ/100 ML PLCT IV SCH (05:25)
--- NOTE | 2024-05-15 08:42 | Critical Care Progress Note ---
Date of Service May 15, 2024 Assessment & Plan (1) Acute pancreatitis: (2) Alcoholism /alcohol abuse: (3) Metabolic acidosis: Plan Impression: 58-year-old male with extensive history of alcohol abuse admitted with alcohol induced pancreatitis and transferred to ICU for alcohol withdrawal/delirium tremens 24-hour events: Patient defervesced. CT three-phase of the pancreas with results noted above. Mentation improved. Recommendations: Neuro -agitation significantly improved. Continue phenobarb wean (decrease to 32 mg IV every 12 for 4 doses) with Haldol for breakthrough agitation. Continue high-dose thiamine and folate. Abstinence from alcohol in the future recommended. Will need PT and OT evaluations once mental status is appropriate Cardiac -tachycardia and hypertensive. Resolved. Continue maintenance fluids. Continue Catapres TTS patch to 0.3. Follow QTc. Continue gentle diuresis Respiratory -splinting due to abdominal distention. Continue oxygen. No evidence of hypercapnia on blood gas. Will follow closely. Incentive spirometry. Out of bed to chair as tolerated GI -n.p.o. due to mental status. Patient would not tolerate feeding tube which would require increasing sedation and probable restraints. PPI in place. No signs of significant abdominal compartment syndrome currently (kidney numbers appropriate, respirations not compromised). Lipase decreasing down to normal. LFTs normalizing. CT of the abdomen reviewed. Extensive pancreatic necrosis. Places the patient at risk for long-term complications but appears to be doing okay clinically. Ideally would like to start nutrition but the patient swallow appears impaired. Patient is made significant progress over the next 24 hours, will hold off on enteric feeding in the hopes that his mental status improves to the point that p.o. intake might be appropriate. Complication of acute pancreatitispartial splenic vein thrombosis. Patient is at high risk for anticoagulation due to potential hemorrhagic pancreatitis and will discuss with GI. This places the patient at risk for development of portal hypertension and gastric and esophageal varices in the long-term. RENAL/LYTES -renal function normal. Replacing electrolytes as needed. Acid- base status acceptable. Continue diuresis ENDO - glycemic control per protocol. HEME -splenic vein thrombosis in association with pancreatitis. Will consult hematology for evaluation and management ID -white blood cell count normal and fever curve better. Currently on Zosyn. Defer duration of antibiotics to GI LINES/TUBES/DRAINS - PIV x2 Neves DVT PROPHYLAXIS - Enoxaparin Disposition: Patient's critical care issues are resolved. He can transfer to the floor. Critical care services will sign off at this point in time Admission and Anticipated Discharge Date Admission Date: May 11, 2024 Subjective Patient seen and examined. EMR reviewed. The patient is demonstrating improved mentation. He appears less delirious. He has not required rescue medications overnight. He has defervesced this morning. Review of Systems Review of Systems: All systems reviewed & are unremarkable except as noted in Subjective Physical Exam Constitutional: + overweight Eyes: PERRL, conjunctivae normal, anicteric sclerae ENMT: Mouth: + dry oral mucous membranes Neck: trachea midline, no thyromegaly Respiratory: symmetric chest movement; no labored breathing and not tachypneic Auscultation: + diminished lung sounds; no rales, no rhonchi and no wheezes Cardiovascular: Rate/Rhythm: regular rhythm and + tachycardic Heart Sounds: no murmur Vessels: normal peripheral pulses; no JVD Gastrointestinal (Abdomen): Inspection/Auscultation: + hypoactive bowel sounds; no visible herniation, caput medusae absent and Cervantes-Tran sign absent Percussion/Palpation: + abdomen tender, + hepatomegaly and + dullness to percussion; no pulsatile mass and no fluid wave Musculoskeletal: Head/Neck/Chest: normocephalic and head atraumatic Extremities: extremities normal to inspection; no cyanosis Skin: no rashes, warm and dry Neurologic: moves all extremities and + confused; no focal motor deficits Results & Data Results & Data Vital Signs (Past 12 Hours) Vital Signs Temp Pulse Ox O2 Del Method O2 Flow Rate 05/15/24 07:47 36.8 C 05/15/24 04:00 95 Nasal Cannula 4 05/15/24 00:00 96 Nasal Cannula 4 Critical Care Results & Data Vital Signs (Past 12 Hours) Vital Signs Temp Pulse Ox O2 Del Method O2 Flow Rate 05/15/24 07:47 36.8 C 05/15/24 04:00 95 Nasal Cannula 4 05/15/24 00:00 96 Nasal Cannula 4 Lab & Micro Results (Past 24 Hours) RBC 4.21 M/uL (4.70-6.10) L 05/15/24 WBC 6.94 K/ul (4.8-10.8) 05/15/24 Hgb 14.7 g/dl (14.0-18.0) 05/15/24 Hct 41.2 % (42.0-52.0) L 05/15/24 MCV 97.9 fL (80.0-100.0) 05/15/24 MCH 34.9 pg (25.0-34.0) H 05/15/24 MCHC 35.7 g/dL (32.0-36.0) 05/15/24 RDW Standard Deviation 49.3 fL (36.4-46.3) H 05/15/24 RDW Coefficient of Variation 13.6 % (11.5-14.5) 05/15/24 Plt Count 127 K/uL (130-400) L 05/15/24 MPV 11.5 fL (9.4-12.4) 05/15/24 Neutrophils (%) (Auto) 71.2 % 05/15/24 Lymphocytes (%) (Auto) 13.4 % 05/15/24 Monocytes # (Auto) 0.79 K/uL (0.11-0.59) H 05/15/24 Eosinophils # (Auto) 0.14 K/uL (0.00-0.50) 05/15/24 Immature Granulocyte % (Auto) 1.7 % 05/15/24 Neutrophils # (Auto) 4.94 K/uL (1.40-6.50) 05/15/24 Lymphocytes # (Auto) 0.93 K/uL (1.20-3.40) L 05/15/24 Monocytes # (Auto) 0.79 K/uL (0.11-0.59) H 05/15/24 Eosinophils # (Auto) 0.14 K/uL (0.00-0.50) 05/15/24 Basophils # (Auto) 0.02 K/uL (0.00-0.20) 05/15/24 Immature Granulocyte # (Auto) 0.12 K/uL (0.01-0.20) 5 Na 141 mmol/L (136-145) 05/15/24 K 3.7 mmol/L (3.5-5.1) 05/15/24 Cl 99 mmol/L (98-107) 05/15/24 CO2 37 mmol/L (21-32) H 05/15/24 Anion Gap 5 (3-11) 05/15/24 BUN 9 mg/dl (6-23) 05/15/24 Creatinine 0.85 mg/dl (0.6-1.4) 05/15/24 BUN/Creatinine Ratio 10.6 (10-20) 05/15/24 Glu 108 mg/dl (70-99(Fasting)) H 05/15/24 Ca 8.2 mg/dl (8.6-10.3) L 05/15/24 Phosphorus Level 1.6 mg/dl (2.5-4.9) L 05/15/24 Total Bilirubin 1.3 mg/dl (0.2-1.0) H 05/15/24 Direct Bilirubin 0.6 mg/dl (0-0.2) H 05/15/24 AST 34 U/L (13-39) 05/15/24 ALT 26 U/L (7-52) 05/15/24 Alkaline Phosphatase 67 U/L (34-104) 05/15/24 TP 6.1 gm/dl (6.0-8.3) 05/15/24 Albumin 2.9 gm/dl (3.4-5.0) L 05/15/24 Mg 2.2 mg/dl (1.7-2.4) 05/15/24 03:27 Calcium Level 8.2 mg/dl (8.6-10.3) L 05/15/24 03:27 Microbiology 05/12/24 04:34 Aerobic Blood Culture - Preliminary Blood No growth in Aerobic bottle after 48 hours. Anaerobic Blood Culture - Preliminary No growth in Anaerobic bottle after 48 hours. 05/12/24 04:34 Aerobic Blood Culture - Preliminary Blood No growth in Aerobic bottle after 48 hours. Anaerobic Blood Culture - Preliminary No growth in Anaerobic bottle after 48 hours. Diagnostic Findings (Past 24 Hours) Pancreas CT 05/14/24 10:52 CT pancreas 3-phase wo/w con HISTORY: 58 years-old Male pancreatitis, phlegmon? Acute abdominal pain with pancreatitis COMPARISON: 05/11/2024 TECHNIQUE: CT abdomen was obtained with and without IV contrast utilizing pancreatic protocol. FINDINGS: Cardiomegaly with coronary artery calcifications. Small left pleural effusion is new from prior. Dependent left greater than right bibasilar opacities favor atelectasis. No pneumatosis or pneumoperitoneum. Hepatomegaly with hepatic steatosis. Patency of the hepatic and portal veins. Unremarkable spleen and adrenal glands. Mild gallbladder wall thickening. No cholelithiasis or biliary ductal dilation. Unremarkable kidneys. No hydronephrosis. Subcentimeter hypodense focus of the superior pole right kidney, too small to characterize.a Atherosclerosis of the aorta without aneurysm. Subcentimeter retroperitoneal lymph nodes. 1.1 x 1.0 cm nodules in the upper abdomen image 108 is suggestive of an additional lymph node. No bowel obstruction. Worsening small bowel ileus. There is mild wall thickening noted within the distal stomach and duodenum. No bowel obstruction. Trace abdominal ascites. There is interstitial and peripancreatic edema redemonstrated which has progressed from the prior study. Additionally, there is patchy decreased enhancement noted throughout the body and tail of the pancreas. No pancreatic ductal dilation or peripancreatic fluid collection. Patent splenic artery. There are a few nonocclusive thrombi noted within the splenic vein. Patent portal and superior mesenteric veins. No acute fracture. Minimal superior endplate compression at T12 is likely chronic IMPRESSION: 1. Progressively worsened acute pancreatitis with decreased enhancement involving the pancreatic body and tail suggestive of developing necrotizing pancreatitis. No pancreatic ductal dilation or acute peripancreatic fluid collections. 2. Progressive reactive edema within the lesser sac/mesentery with trace abdominal pelvic ascites. 3. Rectal wall thickening of the distal stomach and duodenum with ileus. 4. Interval development of nonocclusive thrombi within the splenic vein. 5. No bowel obstruction or pneumoperitoneum. 6. Hepatomegaly with hepatic steatosis. ACT 112: Negative or not required by law. The above report was generated using voice recognition software. It may contain grammatical, syntax or spelling errors. Electronically signed by: Catalino Lei M.D. 05/14/2024 3:07 PM I & O Totals 24 Hours 05/14/24 05/15/24 05/16/24 06:59 06:59 06:59 Intake Total 1295.7945 / 1295.7945 2381 / 2381 180 / 180 Output Total 3895 / 3895 3600 / 3600 200 / 200 Balance -2599.2055 / -2599.2055 -1219 / -1219 -20 / -20 Cumulative 05/11/24 05:41 thru 05/15/24 09:07 Intake Total 53865.2564 Output Total 9445 Balance 6725.2564 RT Ventilator Mngmt (Last Documented) Ventilator Ordered Settings Respiratory Rate 28 05/14/24 19:17 Ventilator - PT Measurements Respiratory Rate 28 Coding Level of Care Code 19300 SUB INP/OBS CARE 3/50MIN Diagnoses Acute pancreatitis K85.90 Alcoholism /alcohol abuse F10.20 Metabolic acidosis E87.20
[2024-05-15] MEDS: PHENobarbital sodium 65 MG/ML VIAL IV SCH (09:13)
--- NOTE | 2024-05-15 11:22 | Communication Note ---
Date of Service: May 15, 2024 GI contacted by ICU provider regarding the CT scan performed on 05/14/24. Reviewed with Dr. Glover the following findings: IMPRESSION: 1. Progressively worsened acute pancreatitis with decreased enhancement involving the pancreatic body and tail suggestive of developing necrotizing pancreatitis. No pancreatic ductal dilation or acute peripancreatic fluid collections. 2. Progressive reactive edema within the lesser sac/mesentery with trace abdominal pelvic ascites. 3. Rectal wall thickening of the distal stomach and duodenum with ileus. 4. Interval development of nonocclusive thrombi within the splenic vein. 5. No bowel obstruction or pneumoperitoneum. 6. Hepatomegaly with hepatic steatosis. At the present time, would continue with aggressive IV fluid hydration, pain control, IV Protonix, & IV Zosyn for concerns for a developing necrotizing pancreatitis. Would defer anticoagulation decisions regarding the splenic vein thrombus to hematology/primary team. Ideally would prefer the patient have feeds via NG, however due to agitation it appears this has not been successful previously. GI will follow supportively. A&P (1) Acute pancreatitis: Problem necrotizing pancreatitis management no real change other than current management. Early refeeding with a Dobbhoff tube in the second or third part of the duodenum may be helpful to decrease the risk of infection in the pancreas. Patient is agitation made preclude that at this time. But as soon as reasonable I would work on that. He is on broad-spectrum antibiotics related to fevers. No need for anticoagulation responding vein thrombosis in the absence of mesenteric vein involvement. Patient is getting PPI. Acute
[2024-05-15] MEDS: PHENobarbital sodium 65 MG/ML VIAL IV PRN (11:55)
--- NOTE | 2024-05-15 12:42 | Hospitalist Progress Note ---
Date of Service May 15, 2024 Assessment & Plan (1) Acute pancreatitis: Plan: Acute alcoholic necrotizing pancreatitis Alcohol withdrawal Delirium tremens Nonocclusive splenic vein thrombosis Patient presented to the hospital with abdominal pain. History of alcohol use disorder CT abdomen and pelvis on admission showed acute interstitial edematous pancreatitis. Patient's alcohol withdrawal gradually worsened; was transferred to ICU on 05/12/[address] abdomen pelvis showed progressive worsening acute pancreatitis with possible developing necrotizing pancreatitis. Interval development of nonocclusive thrombi within the splenic vein As per investment fund manager patient safe to be transferred to the floors. Continue tapering of phenobarbital Continue on Zosyn Hematology consulted by investment fund manager; appreciate recommendation for partial nonocclusive splenic vein thrombosis. MECHANICAL TEST TECHNICIAN eval to start enteral feeding Started on IV fluids with normal saline D5 and potassium chloride Continue on high-dose thiamine and folic acid Continue on clonidine patch (2) Hypertension: Plan: on Clonidine PRN hydralazine Monitor closely Disposition lives at home Plan DVT prophylaxis Lovenox Full code Time spent evaluating patient, direct bedside care, chart review, placing orders, interpretation of diagnostic studies, discussion with consultants, patient, as well as other required patient management activities is 60 minutes Please note the above document was generated using voice recognition software. It may contain grammatical, syntax or spelling errors. Any formal questions or concerns about the content, text or information contained within the body of this dictation should be directly addressed to the provider for clarification Admission and Anticipated Discharge Date Admission Date: May 11, 2024 Subjective Patient seen and examined at bedside. He is opening his eyes; unable to follow commands. Vital signs are stable symptoms no significant events overnight Review of Systems Review of Systems: All systems reviewed & are unremarkable except as noted in Subjective Physical Exam Physical Exam: Constitutional: Opening his eyes spontaneously; not following commands. Respiratory: normal respiratory effort, lungs clear to auscultation, no wheeze, rales, rhonchi. Normal insp/exp effort, no accessory muscle use Cardiovascular: RRR, no murmur, no edema Vessels: no JVD or carotid bruit Chest: normal inspection of chest Abdomen: Distended, nontender. Musculoskeletal: no cyanosis or clubbing, extremities motor strength 5/5 Skin: no rashes, warm and dry normal turgor Neurologic: PERRL, EOMI, moves all extremities Results & Data Results & Data Vital Signs (Past 12 Hours) Vital Signs Temp Pulse Resp BP Pulse Ox Pulse Ox O2 Del Method 05/15/24 11:47 36.6 C 05/15/24 11:02 146/95 H 05/15/24 11:02 146/95 H 05/15/24 11:00 111 H 26 H 05/15/24 10:00 105 H 26 H 94 05/15/24 09:33 99 H 29 H 94 05/15/24 09:33 150/99 H 05/15/24 09:27 94 05/15/24 09:13 101 H 24 143/100 H 05/15/24 09:00 104 H 26 H 92 05/15/24 08:00 122/82 05/15/24 08:00 97 H 23 97 05/15/24 07:47 36.8 C 05/15/24 07:30 Nasal Cannula 05/15/24 07:03 104 H 29 H 86 L 05/15/24 07:00 135/90 05/15/24 06:49 98 H 05/15/24 06:48 99 H 25 H 97 05/15/24 06:45 99 H 24 96 05/15/24 04:00 95 O2 Del Method O2 Flow Rate 05/15/24 11:47 05/15/24 11:02 05/15/24 11:02 05/15/24 11:00 05/15/24 10:00 05/15/24 09:33 05/15/24 09:33 05/15/24 09:27 Nasal Cannula 2 05/15/24 09:13 05/15/24 09:00 05/15/24 08:00 05/15/24 08:00 05/15/24 07:47 05/15/24 07:30 05/15/24 07:03 05/15/24 07:00 05/15/24 06:49 05/15/24 06:48 05/15/24 06:45 05/15/24 04:00 Nasal Cannula 4
[2024-05-15] MEDS: POTASSIUM CHLORIDE 40 MEQ in D5W AND NSS 1,000 ML IV SCH (13:50)
--- NOTE | 2024-05-15 14:00 | Oncology Consultation ---
Date of Consultation May 15, 2024 Assessment & Plan (1) Acute pancreatitis: (2) Splenic vein thrombosis: Plan -Recommend anticoagulation for acute splenic vein thrombosis likely provoked by acute pancreatitis. Can treat with heparin/Lovenox while inpatient and switch to DOAC upon discharge from hospital. Will need anticoagulation for about 3 months. Thank you for this consult. Please feel free to call if you have any other questions. History of Present Illness Attending Physician: Ash Fry MD History of Present Illness 58-year-old gentleman with history of alcohol abuse who presented with abdominal pain with imaging suggestive of acute pancreatitis. Hematology was consulted for nonocclusive splenic vein thrombosis which was noted on CT pancreas obtained on 05/14/2024. Of note, CT abdomen and pelvis with IV contrast obtained on admission on 05/11/2024 did not show any evidence of splenic vein thrombosis. Allergies Allergy/AdvReac Type Severity Reaction Status Date / Time shellfish derived Allergy Severe Anaphylaxis Verified 05/11/24 08:44 Home Medications Medication Instructions Recorded Confirmed Type amino acids (Amino Acid capsule) 1 cap PO DAILY 05/11/24 05/11/24 History cholecalciferol (vitamin D3) 25 25 mcg PO DAILY 05/11/24 05/11/24 History mcg (1,000 unit) tablet (Vitamin D3) multivitamin 1 tab PO DAILY 05/11/24 05/11/24 History Patient History Social History Smoking Status: Never smoker Tobacco Type: Smokeless Tobacco (Dip or Chew) Hx Alcohol Use: Yes Alcohol type: beer Hx Substance Use: No Preferred Language: Greenlandic Communication Ability: Impaired Collision Mechanic Required: No Beliefs That Will Affect Care: None Current Living Situation: Alone Feels Safe at Home: Yes Assistive Devices: None Results & Data Vital Signs (Past 12 Hours) Vital Signs Temp Pulse Resp BP Pulse Ox Pulse Ox O2 Del Method 05/15/24 11:47 36.6 C 05/15/24 11:02 146/95 H 05/15/24 11:02 146/95 H 05/15/24 11:00 111 H 26 H 05/15/24 10:00 105 H 26 H 94 05/15/24 09:33 99 H 29 H 94 05/15/24 09:33 150/99 H 05/15/24 09:27 94 05/15/24 09:13 101 H 24 143/100 H 05/15/24 09:00 104 H 26 H 92 05/15/24 08:00 122/82 05/15/24 08:00 97 H 23 97 05/15/24 07:47 36.8 C 05/15/24 07:30 Nasal Cannula 05/15/24 07:03 104 H 29 H 86 L 05/15/24 07:00 135/90 05/15/24 06:49 98 H 05/15/24 06:48 99 H 25 H 97 05/15/24 06:45 99 H 24 96 05/15/24 04:00 95 O2 Del Method O2 Flow Rate 05/15/24 11:47 05/15/24 11:02 05/15/24 11:02 05/15/24 11:00 05/15/24 10:00 05/15/24 09:33 05/15/24 09:33 05/15/24 09:27 Nasal Cannula 2 05/15/24 09:13 05/15/24 09:00 05/15/24 08:00 05/15/24 08:00 05/15/24 07:47 05/15/24 07:30 05/15/24 07:03 05/15/24 07:00 05/15/24 06:49 05/15/24 06:48 05/15/24 06:45 05/15/24 04:00 Nasal Cannula 4
[2024-05-15] MEDS ORDERED: PHENobarbitaL 30 MG TAB PO SCH (20:45)
[2024-05-16 04:59] LABS: Albumin Level 2.8 gm/dl (3.4-5.0); BUN Creatinine Ratio 10.7 (10-20); Bilirubin Direct 0.6 mg/dl (0-0.2); Bilirubin,Total 1.2 mg/dl (0.2-1.0); Calcium 7.6 mg/dl (8.6-10.3); Magnesium 2.1 mg/dl (1.7-2.4); Phosphorus 2.5 mg/dl (2.5-4.9); Potassium 3.7 mmol/L (3.5-5.1)
[2024-05-16 06:16] LABS: Basophils # (auto) 0.02 K/uL (0.00-0.20); Basophils % (auto) 0.4 %; Eosinophils # (auto) 0.09 K/uL (0.00-0.50); Eosinophils % (auto) 1.8 %; Hematocrit (blood only) 40.3 % (42.0-52.0); Immature Granulocytes # (auto) 0.23 K/uL (0.01-0.20); Immature Granulocytes % (auto) 4.5 %; Lymphocytes # (auto) 0.84 K/uL (1.20-3.40); Lymphocytes % (auto) 16.6 %; Mean Corpuscular Hemoglobin 34.7 pg (25.0-34.0); Mean Corpuscular Hgb Conc 34.7 g/dL (32.0-36.0); Mean Platelet Volume 11.9 fL (9.4-12.4); Monocytes # (auto) 0.93 K/uL (0.11-0.59); Monocytes % (auto) 18.4 %; Neutrophils # (auto) 2.95 K/uL (1.40-6.50); Neutrophils % (auto) 58.3 %; Platelet Count 116 K/uL (130-400); RDW Coefficient of Variation 14.2 % (11.5-14.5); RDW Standard Deviation 52.5 fL (36.4-46.3); Red Blood Count 4.03 M/uL (4.70-6.10); White Blood Count 5.06 K/ul (4.8-10.8)
--- NOTE | 2024-05-16 07:55 | Hospitalist Progress Note ---
Date of Service May 16, 2024 Assessment & Plan (1) Acute pancreatitis: Plan: Acute alcoholic necrotizing pancreatitis Alcohol withdrawal Delirium tremens Nonocclusive splenic vein thrombosis Patient presented to the hospital with abdominal pain. History of alcohol use disorder CT abdomen and pelvis on admission showed acute interstitial edematous pancreatitis. Patient's alcohol withdrawal gradually worsened; was transferred to ICU on 05/12/[address] abdomen pelvis showed progressive worsening acute pancreatitis with possible developing necrotizing pancreatitis. Interval development of nonocclusive thrombi within the splenic vein Patient transferred out of the ICU on 05/15/2024 Will have speech reevaluate to see if patient can be started on oral intake. He is status post tapering dose of phenobarbital. As per patient, his last drink was on 2 days prior to admission Continue on Zosyn Hematology consulted by [employer] founder; Recommended anticoagulation with heparin. Continue on IV fluids with normal saline D5 and potassium chloride Continue on high-dose thiamine and folic acid Continue on clonidine patch (2) Hypertension: Plan: on Clonidine PRN hydralazine Monitor closely Disposition lives at home. Significant weakness. PT OT evaluation Plan DVT prophylaxis Lovenox Full code Time spent evaluating patient, direct bedside care, chart review, placing orders, interpretation of diagnostic studies, discussion with consultants, patient, as well as other required patient management activities is 50 minutes Please note the above document was generated using voice recognition software. It may contain grammatical, syntax or spelling errors. Any formal questions or concerns about the content, text or information contained within the body of this dictation should be directly addressed to the provider for clarification Admission and Anticipated Discharge Date Admission Date: May 11, 2024 Subjective Patient seen and examined at bedside. He is more awake and interactive today. He is able to follow simple commands. Does not have tremors or hallucination. Review of Systems Review of Systems: All systems reviewed & are unremarkable except as noted in Subjective Physical Exam Physical Exam: Constitutional:Awake, oriented to self. Not in any distress Respiratory: normal respiratory effort, lungs clear to auscultation, no wheeze, rales, rhonchi. Normal insp/exp effort, no accessory muscle use Cardiovascular: RRR, no murmur, no edema Vessels: no JVD or carotid bruit Chest: normal inspection of chest Abdomen: Distended, nontender. Musculoskeletal: no cyanosis or clubbing, extremities motor strength 5/5 Skin: no rashes, warm and dry normal turgor Neurologic: PERRL, EOMI, moves all extremities Results & Data Results & Data Vital Signs (Past 12 Hours) Vital Signs Temp Pulse Resp BP Pulse Ox Pulse Ox O2 Del Method 05/16/24 07:00 143/104 H 05/16/24 06:54 88 21 96 05/16/24 06:06 96 H 22 91 05/16/24 06:00 129/100 05/16/24 05:57 89 22 93 05/16/24 05:06 132/84 05/16/24 05:06 98 H 17 91 05/16/24 05:03 97 H 13 93 05/16/24 04:03 91 H 31 H 97 05/16/24 04:00 135/86 05/16/24 04:00 135/86 05/16/24 04:00 93 05/16/24 04:00 36.9 C 05/16/24 03:51 90 23 90 05/16/24 03:03 93 H 22 96 05/16/24 03:00 125/89 05/16/24 02:42 95 H 20 99 05/16/24 02:01 122/105 H 05/16/24 02:00 95 H 25 H 91 05/16/24 01:06 93 H 23 93 05/16/24 01:00 133/94 05/16/24 00:51 94 H 24 92 05/16/24 00:03 102 H 26 H 93 05/16/24 00:00 138/91 05/16/24 00:00 95 05/16/24 00:00 95 H 05/15/24 23:57 94 H 24 94 05/15/24 23:24 94 H 25 H 95 05/15/24 23:15 36.4 C L 05/15/24 23:00 134/92 05/15/24 22:54 93 H 26 H 92 05/15/24 22:00 137/89 05/15/24 22:00 96 H 25 H 93 05/15/24 21:21 99 H 20 93 05/15/24 21:00 139/95 05/15/24 21:00 139/95 05/15/24 20:27 101 H 29 H 92 05/15/24 20:18 96 H 24 91 05/15/24 20:00 37.0 C 05/15/24 20:00 139/89 05/15/24 20:00 139/89 05/15/24 20:00 95 05/15/24 20:00 Nasal Cannula O2 Del Method O2 Flow Rate O2 Flow Rate 05/16/24 07:00 05/16/24 06:54 05/16/24 06:06 05/16/24 06:00 05/16/24 05:57 05/16/24 05:06 05/16/24 05:06 05/16/24 05:03 05/16/24 04:03 05/16/24 04:00 05/16/24 04:00 05/16/24 04:00 Nasal Cannula 2 05/16/24 04:00 05/16/24 03:51 05/16/24 03:03 05/16/24 03:00 05/16/24 02:42 05/16/24 02:01 05/16/24 02:00 05/16/24 01:06 05/16/24 01:00 05/16/24 00:51 05/16/24 00:03 05/16/24 00:00 05/16/24 00:00 Nasal Cannula 2 05/16/24 00:00 05/15/24 23:57 05/15/24 23:24 05/15/24 23:15 05/15/24 23:00 05/15/24 22:54 05/15/24 22:00 05/15/24 22:00 05/15/24 21:21 05/15/24 21:00 05/15/24 21:00 05/15/24 20:27 05/15/24 20:18 05/15/24 20:00 05/15/24 20:00 05/15/24 20:00 05/15/24 20:00 Nasal Cannula 2 05/15/24 20:00 2
[2024-05-16] MEDS: Heparin IV Adult Wt-Based Standard *NO* INITIAL Bolus Protocol IV STA (08:42)
[2024-05-16] MEDS: HEPARIN 25000 UNIT/500 ML D5W 25,000 UNITS/500 ML BAG IV SCH (09:27)
[2024-05-16 10:47] LABS: Partial Thromboplastin Ratio 1.2; Partial Thromboplastin Time 31 Seconds (21-31)
[2024-05-16 15:31] LABS: ANTI-Xa, UFH(UnfractionatedHep 0.15 IU/ml (0.3-0.7)
[2024-05-16] MEDS: HEPARIN SOD (PORCINE) 1000 UNIT/ML IV ONE (16:16)
[2024-05-17 00:22] LABS: ANTI-Xa, UFH(UnfractionatedHep 0.24 IU/ml (0.3-0.7)
[2024-05-17] MEDS: POLYETHYLENE (MIRALAX) 17 GM PACK PO SCH (07:39)
[2024-05-17 08:20] LABS: Calcium 7.5 mg/dl (8.6-10.3); Potassium 3.6 mmol/L (3.5-5.1)
[2024-05-17 08:25] LABS: BUN Creatinine Ratio 9.6 (10-20); Creatinine Clr Calc Pharmacy 141.9 ml/min
[2024-05-17 08:27] LABS: ANTI-Xa, UFH(UnfractionatedHep 0.22 IU/ml (0.3-0.7)
[2024-05-17] MEDS ORDERED: guaiFENesin/DEXTROM SYRUP 100MG/10MG 5ML UDC PO PRN (10:56)
--- NOTE | 2024-05-17 11:00 | Gastroenterology Progress Note ---
Date of Service May 17, 2024 Assessment & Plan (1) Acute pancreatitis: Plan: See above (2) Splenic vein thrombosis: Plan: Anticoagulated (3) Alcoholism /alcohol abuse: Plan: Clinical resolving DTs Admission and Anticipated Discharge Date Admission Date: May 11, 2024 Subjective Acute necrotizing pancreatitis. Alcohol withdrawal. Patient seems to be improving. His white count is normal. He is more awake and actually can answer questions. Nurses notes that he is taking p.o. and has had significant stooling. Reviewed with hospitalist. This point without obvious infection spiking fevers elevated white count prophylactic antibiotics for necrotizing pancreatitis typically not required. Follow-up scan in the short-term as long as he is not improving can wait. Patient however will be at risk of developing a pancreatic pseudocyst going forward and should have follow-up imaging 2 to 4 weeks postdischarge. The splenic vein thrombosis is more of a controversial issue. Anticoagulation carries the risk of bleeding and necrotizing pancreatitis. There is a risk of developing extension into the portal and mesenteric vein system. In that situation anticoagulation less controversial. If there is any evidence of following H&H I would stop his anticoagulation. Patient remains critically ill though showing signs of improvement. Review of Systems Review of Systems: Currently denies abdominal pain. Denies fevers or chills. Physical Exam Physical Exam: Answers questions. Though remains somewhat confused. Taken p.o. Abdomen distended and tympanic. Bowel sounds decreased. Results & Data Results & Data Vital Signs (Past 12 Hours) Vital Signs Temp Pulse Resp BP Pulse Ox Pulse Ox O2 Del Method 05/17/24 07:21 36.8 C 98 H 18 129/87 93 Room Air 05/17/24 04:00 96 05/17/24 03:14 37.0 C 86 17 149/85 H 91 Room Air 05/17/24 00:00 95 05/16/24 23:32 36.6 C 100 H 17 112/87 96 Room Air O2 Del Method 05/17/24 07:21 05/17/24 04:00 Room Air 05/17/24 03:14 05/17/24 00:00 Room Air 05/16/24 23:32 Laboratory Results White count normal hemoglobin stable PG Care Time/CCT Total # of Minutes Spent Total Time Spent with Patient: Total time spent is greater than 50% in coordination of care (as documented) at patient's floor/unit and/or counseling patient: Coding Level of Care Code 53442 SUB INP/OBS CARE 04/26MIN Diagnoses Acute pancreatitis K85.90 Splenic vein thrombosis I82.890 Alcoholism /alcohol abuse F10.20
--- NOTE | 2024-05-17 11:17 | Hospitalist Progress Note ---
Date of Service May 17, 2024 Assessment & Plan (1) Acute pancreatitis: Plan: Acute alcoholic necrotizing pancreatitis Alcohol withdrawal Delirium tremens Nonocclusive splenic vein thrombosis Patient presented to the hospital with abdominal pain. History of alcohol use disorder CT abdomen and pelvis on admission showed acute interstitial edematous pancreatitis. Patient's alcohol withdrawal gradually worsened; was transferred to ICU on 05/12/[address] abdomen pelvis showed progressive worsening acute pancreatitis with possible developing necrotizing pancreatitis. Interval development of nonocclusive thrombi within the splenic vein Patient transferred out of the ICU on 05/15/2024 Patient underwent alcohol withdrawal protocol with phenobarbital and clonidine. Will decrease clonidine dose to 0.1 mg and start tapering it off. Discussed with GI; will discontinue antibiotic if patient continues to be afebrile for next 24 hours. No need for repeat CT abdomen at this time if patient is clinically improving; will need CT scan in 2 to 4 weeks to rule out development of pseudocyst. For anticoagulation; will continue anticoagulation for now with the plans to switch to DOAC's for total of 3 months as per hematology. Monitor for any drop in hemoglobin or signs or symptoms of bleeding. Plan Disposition lives at home. Significant weakness. PT OT evaluation Patient's mom updated over the phone on May 16, 2024 DVT prophylaxis heparin Full code Time spent evaluating patient, direct bedside care, chart review, placing orders, interpretation of diagnostic studies, discussion with consultants, patient, as well as other required patient management activities is 50 minutes Please note the above document was generated using voice recognition software. It may contain grammatical, syntax or spelling errors. Any formal questions or concerns about the content, text or information contained within the body of this dictation should be directly addressed to the provider for clarification Admission and Anticipated Discharge Date Admission Date: May 11, 2024 Subjective Patient is more awake and interactive today. He is oriented to self and place. Denies any pain or discomfort. Vital signs are stable and he saturating well in room Review of Systems Review of Systems: All systems reviewed & are unremarkable except as noted in Subjective Physical Exam Physical Exam: Constitutional:Awake, oriented to self. Not in any distress Respiratory: normal respiratory effort, lungs clear to auscultation, no wheeze, rales, rhonchi. Normal insp/exp effort, no accessory muscle use Cardiovascular: RRR, no murmur, no edema Vessels: no JVD or carotid bruit Chest: normal inspection of chest Abdomen: Distended, nontender. Musculoskeletal: no cyanosis or clubbing, extremities motor strength 5/5 Skin: no rashes, warm and dry normal turgor Neurologic: PERRL, EOMI, moves all extremities Results & Data Results & Data Vital Signs (Past 12 Hours) Vital Signs Temp Pulse Pulse Resp BP Pulse Ox Pulse Ox 05/17/24 08:00 85 05/17/24 07:21 36.8 C 98 H 18 129/87 93 05/17/24 04:00 96 05/17/24 03:14 37.0 C 86 17 149/85 H 91 05/17/24 00:00 95 05/16/24 23:32 36.6 C 100 H 17 112/87 96 O2 Del Method O2 Del Method 05/17/24 08:00 05/17/24 07:21 Room Air 05/17/24 04:00 Room Air 05/17/24 03:14 Room Air 05/17/24 00:00 Room Air 05/16/24 23:32 Room Air
[2024-05-17] MEDS: cloNIDine HCL 0.1 MG/24 HR TRANSDERM SYS TD SCH (11:31)
[2024-05-17] MEDS: THIAMINE HCL 100 MG TAB PO SCH (11:31)
[2024-05-17] MEDS: cefTRIAXone SODIUM 2,000 MG/50 ML BAG IV SCH (11:31)
[2024-05-17] MEDS: FOLIC ACID 1 MG TAB PO SCH (11:31)
[2024-05-17] MEDS: metroNIDAZOLE 500 MG/100 ML BAG IV SCH (11:31)
[2024-05-17] MEDS: CHECK CLONIDINE PATCH PLACEMENT SCH (15:31)
[2024-05-17 17:31] LABS: ANTI-Xa, UFH(UnfractionatedHep 0.38 IU/ml (0.3-0.7)
[2024-05-18 07:27] LABS: Basophils # (auto) 0.02 K/uL (0.00-0.20); Basophils % (auto) 0.3 %; Eosinophils # (auto) 0.05 K/uL (0.00-0.50); Eosinophils % (auto) 0.9 %; Hematocrit (blood only) 36.9 % (42.0-52.0); Hemoglobin 12.8 g/dl (14.0-18.0); Immature Granulocytes # (auto) 0.11 K/uL (0.01-0.20); Immature Granulocytes % (auto) 1.9 %; Lymphocytes # (auto) 0.87 K/uL (1.20-3.40); Lymphocytes % (auto) 15.2 %; Mean Corpuscular Hemoglobin 34.1 pg (25.0-34.0); Mean Corpuscular Hgb Conc 34.7 g/dL (32.0-36.0); Mean Corpuscular Volume 98.4 fL (80.0-100.0); Mean Platelet Volume 11.8 fL (9.4-12.4); Monocytes # (auto) 0.42 K/uL (0.11-0.59); Monocytes % (auto) 7.3 %; Neutrophils # (auto) 4.26 K/uL (1.40-6.50); Neutrophils % (auto) 74.4 %; Platelet Count 142 K/uL (130-400); RDW Coefficient of Variation 13.9 % (11.5-14.5); RDW Standard Deviation 50.5 fL (36.4-46.3); Red Blood Count 3.75 M/uL (4.70-6.10); White Blood Count 5.73 K/ul (4.8-10.8)
[2024-05-18] MEDS: PANTOprazole 40 MG TAB PO SCH (07:36)
[2024-05-18 07:46] LABS: ANTI-Xa, UFH(UnfractionatedHep 0.36 IU/ml (0.3-0.7)
[2024-05-18 07:56] LABS: BUN Creatinine Ratio 10.3 (10-20); Calcium 7.5 mg/dl (8.6-10.3); Creatinine Clr Calc Pharmacy 151.9 ml/min; Potassium 3.7 mmol/L (3.5-5.1)
--- NOTE | 2024-05-18 11:44 | Hospitalist Progress Note ---
Date of Service May 18, 2024 Assessment & Plan (1) Acute pancreatitis: Plan: Acute alcoholic necrotizing pancreatitis Alcohol withdrawal Delirium tremens Nonocclusive splenic vein thrombosis Patient presented to the hospital with abdominal pain. History of alcohol use disorder CT abdomen and pelvis on admission showed acute interstitial edematous pancreatitis. Patient's alcohol withdrawal gradually worsened; was transferred to ICU on 05/12/[address] abdomen pelvis showed progressive worsening acute pancreatitis with possible developing necrotizing pancreatitis. Interval development of nonocclusive thrombi within the splenic vein Patient transferred out of the ICU on 05/15/2024 Patient underwent alcohol withdrawal protocol with phenobarbital and clonidine. Both have been stopped Was treated with antibiotic with Zosyn, ceftriaxone/Flagyl. Stopped as no sign or symptoms of infection and patient is afebrile No need for repeat CT abdomen at this time if patient is clinically improving; will need CT scan in 2 to 4 weeks to rule out development of pseudocyst. For anticoagulation; will continue anticoagulation for now with the plans to switch to DOAC's for total of 3 months as per hematology. Monitor for any drop in hemoglobin or signs or symptoms of bleeding. Plan Disposition lives at home. Significant weakness. PT OT evaluation Patient's mom updated over the phone on May 16, 2024 DVT prophylaxis heparin Full code Time spent evaluating patient, direct bedside care, chart review, placing orders, interpretation of diagnostic studies, discussion with consultants, patient, as well as other required patient management activities is 50 minutes Please note the above document was generated using voice recognition software. It may contain grammatical, syntax or spelling errors. Any formal questions or concerns about the content, text or information contained within the body of this dictation should be directly addressed to the provider for clarification Admission and Anticipated Discharge Date Admission Date: May 11, 2024 Subjective Patient more awake and interactive today. He denies any pain or discomfort anywhere He is having regular bowel movement. No symptoms of withdrawal at this time Review of Systems Review of Systems: All systems reviewed & are unremarkable except as noted in Subjective Physical Exam Physical Exam: Constitutional:Awake, oriented to self. Not in any distress Respiratory: normal respiratory effort, lungs clear to auscultation, no wheeze, rales, rhonchi. Normal insp/exp effort, no accessory muscle use Cardiovascular: RRR, no murmur, no edema Vessels: no JVD or carotid bruit Chest: normal inspection of chest Abdomen: Slightly distended, nontender. Musculoskeletal: no cyanosis or clubbing, extremities motor strength 5/5 Skin: no rashes, warm and dry normal turgor Neurologic: PERRL, EOMI, moves all extremities Results & Data Results & Data Vital Signs (Past 12 Hours) Vital Signs Temp Pulse Pulse Resp BP Pulse Ox O2 Del Method 05/18/24 08:00 85 05/18/24 08:00 Room Air 05/18/24 07:57 36.4 C L 85 17 145/97 H 91 Room Air 05/18/24 02:56 36.6 C 82 17 122/62 95 Room Air
[2024-05-18] MEDS: ACETAMINOPHEN 325 MG TAB PO PRN (14:15)
--- NOTE | 2024-05-18 18:11 | Ultrasound Report ---
Examination: Doppler venous ultrasound of the upper extremity Comparison: None Technique: Grayscale evaluation with compression, spectral flow, and color Doppler assessment of the deep venous system of the upper extremity Findings: Normal blood flow and waveforms are demonstrated in the internal jugular, subclavian, and axillary veins. Superficial occlusive thrombus seen in the cephalic vein beginning just proximal to the antecubital fossa for 4 cm, and seen at the level of the antecubital fossa. Distal to the antecubital fossa the cephalic vein is patent. There is additional thrombus in the cephalic vein in the distal forearm and at the wrist for 5 cm. The radial and ulnar vein are patent. Impression: No evidence for DVT of the right upper extremity Superficial venous thrombosis involving portions of the cephalic vein, as above. Electronically signed by Epi Manning 05-18-2024 6:10 PM
[2024-05-19 08:17] LABS: Potassium 3.7 mmol/L (3.5-5.1)
[2024-05-19 08:19] LABS: Basophils # (auto) 0.01 K/uL (0.00-0.20); Basophils % (auto) 0.2 %; Eosinophils # (auto) 0.05 K/uL (0.00-0.50); Eosinophils % (auto) 0.8 %; Hematocrit (blood only) 40.8 % (42.0-52.0); Immature Granulocytes # (auto) 0.09 K/uL (0.01-0.20); Immature Granulocytes % (auto) 1.4 %; Lymphocytes # (auto) 0.97 K/uL (1.20-3.40); Lymphocytes % (auto) 15.3 %; Mean Corpuscular Hgb Conc 34.3 g/dL (32.0-36.0); Mean Platelet Volume 12.5 fL (9.4-12.4); Monocytes # (auto) 0.53 K/uL (0.11-0.59); Monocytes % (auto) 8.4 %; Neutrophils # (auto) 4.67 K/uL (1.40-6.50); Neutrophils % (auto) 73.9 %; Platelet Count 161 K/uL (130-400); RDW Coefficient of Variation 13.7 % (11.5-14.5); RDW Standard Deviation 50.1 fL (36.4-46.3); Red Blood Count 4.12 M/uL (4.70-6.10); White Blood Count 6.32 K/ul (4.8-10.8)
[2024-05-19 08:23] LABS: BUN Creatinine Ratio 9.2 (10-20); Creatinine Clr Calc Pharmacy 159.2 ml/min
[2024-05-19] MEDS ORDERED: ENOXAPARIN 1 MG/KG SC SCH (10:15)
--- NOTE | 2024-05-19 10:17 | Hospitalist Progress Note ---
Date of Service May 19, 2024 Assessment & Plan (1) Acute pancreatitis: Plan: Acute alcoholic necrotizing pancreatitis Alcohol withdrawal Delirium tremens Nonocclusive splenic vein thrombosis Cephalic vein thrombosis Patient presented to the hospital with abdominal pain. History of alcohol use disorder CT abdomen and pelvis on admission showed acute interstitial edematous pancreatitis. Patient's alcohol withdrawal gradually worsened; was transferred to ICU on 05/12/[address] abdomen pelvis showed progressive worsening acute pancreatitis with possible developing necrotizing pancreatitis. Interval development of nonoccl usive thrombi within the splenic vein Patient transferred out of the ICU on 05/15/2024 Duplex of right upper extremity showed superficial venous thrombosis involving portion of cephalic vein Patient underwent alcohol withdrawal protocol with phenobarbital and clonidine. Both have been stopped as withdrawal symptoms subsided. Was treated with antibiotic with Zosyn, ceftriaxone/Flagyl. Stopped as no sign or symptoms of infection and patient is afebrile No need for repeat CT abdomen at this time if patient is clinically improving; will need CT scan in 2 to 4 weeks to rule out development of pseudocyst. For anticoagulation; Plan to continue anticoagulation for at least 3 months. Was started on heparin; switched over to Lovenox; plan for DOAC's at discharge. Plan Disposition lives at home. Significant weakness due to the hospitalization. PTOT recommending rehab; appreciate case management assistance DVT prophylaxis lovenox Full code Time spent evaluating patient, direct bedside care, chart review, placing orders, interpretation of diagnostic studies, discussion with consultants, patient, as well as other required patient management activities is 50 minutes Please note the above document was generated using voice recognition software. It may contain grammatical, syntax or spelling errors. Any formal questions or concerns about the content, text or information contained within the body of this dictation should be directly addressed to the provider for clarification Admission and Anticipated Discharge Date Admission Date: May 11, 2024 Subjective Patient seen and examined at bedside. He is comfortable; not in distress. Reports of right wrist pain. He is alert oriented x 3. Review of Systems Review of Systems: All systems reviewed & are unremarkable except as noted in Subjective Physical Exam Physical Exam: Constitutional:Awake, oriented to self. Not in any distress Respiratory: normal respiratory effort, lungs clear to auscultation, no wheeze, rales, rhonchi. Normal insp/exp effort, no accessory muscle use Cardiovascular: RRR, no murmur, no edema Vessels: no JVD or carotid bruit Chest: normal inspection of chest Abdomen: Slightly distended, nontender. Musculoskeletal: no cyanosis or clubbing, extremities motor strength 5/5. Swelling, tenderness on right arm Skin: no rashes, warm and dry normal turgor Neurologic: PERRL, EOMI, moves all extremities Results & Data Results & Data Vital Signs (Past 12 Hours) Vital Signs Temp Pulse Resp BP Pulse Ox O2 Del Method 05/19/24 07:56 Room Air 05/19/24 07:11 36.7 C 88 20 159/98 H 92 Room Air
[2024-05-19] MEDS: ENOXAPARIN INJ 120 MG/0.8 ML SYR SQ SCH (11:01)
[2024-05-20 09:48] LABS: Basophils # (auto) 0.02 K/uL (0.00-0.20); Basophils % (auto) 0.3 %; Eosinophils # (auto) 0.05 K/uL (0.00-0.50); Eosinophils % (auto) 0.8 %; Hematocrit (blood only) 37.9 % (42.0-52.0); Hemoglobin 12.8 g/dl (14.0-18.0); Immature Granulocytes # (auto) 0.07 K/uL (0.01-0.20); Immature Granulocytes % (auto) 1.1 %; Lymphocytes # (auto) 0.86 K/uL (1.20-3.40); Lymphocytes % (auto) 13.6 %; Mean Corpuscular Hemoglobin 33.6 pg (25.0-34.0); Mean Corpuscular Hgb Conc 33.8 g/dL (32.0-36.0); Mean Corpuscular Volume 99.5 fL (80.0-100.0); Monocytes # (auto) 0.47 K/uL (0.11-0.59); Monocytes % (auto) 7.4 %; Neutrophils # (auto) 4.86 K/uL (1.40-6.50); Neutrophils % (auto) 76.8 %; Platelet Count 203 K/uL (130-400); RDW Standard Deviation 50.7 fL (36.4-46.3); Red Blood Count 3.81 M/uL (4.70-6.10); White Blood Count 6.33 K/ul (4.8-10.8)
[2024-05-20 10:08] LABS: Albumin Globulin Ratio 0.7 (0.9-2); Albumin Level 2.7 gm/dl (3.4-5.0); BUN Creatinine Ratio 6.6 (10-20); Bilirubin,Total 0.6 mg/dl (0.2-1.0); Calcium 8.2 mg/dl (8.6-10.3); Creatinine Clr Calc Pharmacy 136.1 ml/min; Globulin 3.7 gm/dl (2.5-4.0); Potassium 3.8 mmol/L (3.5-5.1); Total Protein 6.4 gm/dl (6.0-8.3)
--- NOTE | 2024-05-20 11:42 | Hospitalist Progress Note ---
Date of Service May 20, 2024 Assessment & Plan (1) Acute pancreatitis: Plan: Acute alcoholic necrotizing pancreatitis Alcohol withdrawal Delirium tremens Nonocclusive splenic vein thrombosis Cephalic vein thrombosis Patient presented to the hospital with abdominal pain. History of alcohol use disorder CT abdomen and pelvis on admission showed acute interstitial edematous pancreatitis. Patient's alcohol withdrawal gradually worsened; was transferred to ICU on 05/12/[address] abdomen pelvis showed progressive worsening acute pancreatitis with possible developing necrotizing pancreatitis. Interval development of nonoccl usive thrombi within the splenic vein Patient transferred out of the ICU on 05/15/2024 Duplex of right upper extremity showed superficial venous thrombosis involving portion of cephalic vein Patient underwent alcohol withdrawal protocol with phenobarbital and clonidine. Both have been stopped as withdrawal symptoms subsided. Was treated with antibiotic with Zosyn, ceftriaxone/Flagyl. Stopped as no sign or symptoms of infection and patient is afebrile No need for repeat CT abdomen at this time if patient is clinically improving; will need CT abdomen in 2 to 4 weeks to rule out development of pseudocyst post- discharge For anticoagulation; Plan to continue anticoagulation for at least 3 months. Was started on heparin; switched over to Lovenox; plan for DOAC's at discharge. Awaiting placement Plan Disposition lives at home. Significant weakness due to the hospitalization. PTOT recomme nding rehab; awaiting placement. DVT prophylaxis lovenox Full code Time spent evaluating patient, direct bedside care, chart review, placing orders, interpretation of diagnostic studies, discussion with consultants, patient, as well as other required patient management activities is 50 minutes Please note the above document was generated using voice recognition software. It may contain grammatical, syntax or spelling errors. Any formal questions or concerns about the content, text or information contained within the body of this dictation should be directly addressed to the provider for clarification Admission and Anticipated Discharge Date Admission Date: May 11, 2024 Subjective Patient seen and examined at bedside. Comfortable; not in distress. Denies fever, chills, chest pain, shortness of breath, abdominal pain or urinary symptoms. No significant overnight events Review of Systems Review of Systems: All systems reviewed & are unremarkable except as noted in Subjective Physical Exam Physical Exam: Constitutional:Awake, oriented to self. Not in any distress Respiratory: normal respiratory effort, lungs clear to auscultation, no wheeze, rales, rhonchi. Normal insp/exp effort, no accessory muscle use Cardiovascular: RRR, no murmur, no edema Vessels: no JVD or carotid bruit Chest: normal inspection of chest Abdomen: Slightly distended, nontender. Musculoskeletal: no cyanosis or clubbing, extremities motor strength 5/5. Swelling, tenderness on right arm Skin: no rashes, warm and dry normal turgor Neurologic: PERRL, EOMI, moves all extremities Results & Data Results & Data Vital Signs (Past 12 Hours) Vital Signs Temp Pulse Resp BP BP Pulse Ox O2 Del Method 05/20/24 11:00 36.8 C 91 H 16 140/98 91 Room Air 05/20/24 08:00 36.9 C 85 16 121/83 94 Room Air
[2024-05-20 12:31] LABS: Urine Potassium 18.3 mmol/L
[2024-05-20] MEDS: MoRPHine SULFATE 2 MG/ML CARP IV STA (20:32)
[2024-05-21 08:45] LABS: Basophils # (auto) 0.02 K/uL (0.00-0.20); Basophils % (auto) 0.4 %; Eosinophils # (auto) 0.04 K/uL (0.00-0.50); Eosinophils % (auto) 0.8 %; Immature Granulocytes # (auto) 0.04 K/uL (0.01-0.20); Immature Granulocytes % (auto) 0.8 %; Lymphocytes % (auto) 18.9 %; Mean Corpuscular Hemoglobin 33.7 pg (25.0-34.0); Mean Corpuscular Hgb Conc 34.2 g/dL (32.0-36.0); Mean Corpuscular Volume 98.4 fL (80.0-100.0); Monocytes % (auto) 7.5 %; Neutrophils % (auto) 71.6 %; Platelet Count 216 K/uL (130-400); RDW Standard Deviation 50.9 fL (36.4-46.3); Red Blood Count 3.86 M/uL (4.70-6.10)
[2024-05-21 09:04] LABS: Albumin Globulin Ratio 0.7 (0.9-2); Albumin Level 2.6 gm/dl (3.4-5.0); BUN Creatinine Ratio 9.4 (10-20); Bilirubin,Total 0.6 mg/dl (0.2-1.0); Calcium 8.1 mg/dl (8.6-10.3); Creatinine Clr Calc Pharmacy 154.2 ml/min; Globulin 3.9 gm/dl (2.5-4.0); Total Protein 6.5 gm/dl (6.0-8.3)
[2024-05-21] MEDS: oxyCODONE HCL IR 5 MG TAB (IMMEDIATE RELEASE) PO PRN (12:51)
--- NOTE | 2024-05-21 16:26 | Hospitalist Progress Note ---
Date of Service May 21, 2024 Assessment & Plan (1) Acute pancreatitis: Plan: Acute alcoholic necrotizing pancreatitis Alcohol withdrawal Delirium tremens Nonocclusive splenic vein thrombosis Cephalic vein thrombosis Patient presented to the hospital with abdominal pain. History of alcohol use disorder CT abdomen and pelvis on admission showed acute interstitial edematous pancreatitis. Patient's alcohol withdrawal gradually worsened; was transferred to ICU on 05/12/[address] abdomen pelvis showed progressive worsening acute pancreatitis with possible developing necrotizing pancreatitis. Interval development of nonoccl usive thrombi within the splenic vein Patient transferred out of the ICU on 05/15/2024 Duplex of right upper extremity showed superficial venous thrombosis involving portion of cephalic vein Patient underwent alcohol withdrawal protocol with phenobarbital and clonidine. Both have been stopped as withdrawal symptoms subsided. Was treated with antibiotic with Zosyn, ceftriaxone/Flagyl. Stopped as no sign or symptoms of infection and patient is afebrile No need for repeat CT abdomen at this time if patient is clinically improving; will need CT abdomen in 2 to 4 weeks to rule out development of pseudocyst post- discharge For anticoagulation; Plan to continue anticoagulation for at least 3 months. Was started on heparin; switched over to Lovenox; plan for DOAC's at discharge. Pt doesn't want to go to rehab, would like to go home [facility]. Plan Disposition lives at home. Significant weakness due to the hospitalization. PTOT recommending rehab; awaiting placement. DVT prophylaxis lovenox Full code Time spent evaluating patient, direct bedside care, chart review, placing ord ers, interpretation of diagnostic studies, discussion with consultants, patient, as well as other required patient management activities is 50 minutes Please note the above document was generated using voice recognition software. It may contain grammatical, syntax or spelling errors. Any formal questions or concerns about the content, text or information contained within the body of this dictation should be directly addressed to the provider for clarification Admission and Anticipated Discharge Date Admission Date: May 11, 2024 Subjective Patient seen and examined at bedside. Comfortable; not in distress. Denies fever, chills, chest pain, shortness of breath, abdominal pain or urinary symptoms. Last night reported abd pain after eating which has improved by AM exam. Lipase in downtrending trend. Physical Exam Physical Exam: Constitutional:Awake, oriented to self. Not in any distress Respiratory: normal respiratory effort, lungs clear to auscultation, no wheeze, rales, rhonchi. Normal insp/exp effort, no accessory muscle use Cardiovascular: RRR, no murmur, no edema Vessels: no JVD or carotid bruit Chest: normal inspection of chest Abdomen: Slightly distended, nontender. Musculoskeletal: no cyanosis or clubbing, extremities motor strength 5/5. Swelling, tenderness on right arm Skin: no rashes, warm and dry normal turgor Neurologic: PERRL, EOMI, moves all extremities Results & Data Results & Data Vital Signs (Past 12 Hours) Vital Signs Temp Pulse Resp BP Pulse Ox O2 Del Method 05/21/24 15:30 138/90 05/21/24 14:29 37.2 C 80 18 169/99 H 93 Room Air 05/21/24 07:07 37.2 C 84 18 158/95 H 92 Room Air
[2024-05-22 08:20] LABS: Hematocrit (blood only) 37.1 % (42.0-52.0); Hemoglobin 12.9 g/dl (14.0-18.0); Mean Corpuscular Hemoglobin 34.4 pg (25.0-34.0); Mean Corpuscular Hgb Conc 34.8 g/dL (32.0-36.0); Mean Corpuscular Volume 98.9 fL (80.0-100.0); Mean Platelet Volume 12.1 fL (9.4-12.4); Platelet Count 250 K/uL (130-400); RDW Coefficient of Variation 13.8 % (11.5-14.5); RDW Standard Deviation 50.3 fL (36.4-46.3); Red Blood Count 3.75 M/uL (4.70-6.10)
[2024-05-22 08:40] LABS: BUN Creatinine Ratio 9.2 (10-20); Calcium 8.4 mg/dl (8.6-10.3); Magnesium 1.8 mg/dl (1.7-2.4); Phosphorus 3.4 mg/dl (2.5-4.9); Potassium 4.2 mmol/L (3.5-5.1)
--- NOTE | 2024-05-22 15:21 | Hospitalist Progress Note ---
Date of Service May 22, 2024 Assessment & Plan (1) Acute pancreatitis: Plan: Acute alcoholic necrotizing pancreatitis Alcohol withdrawal Delirium tremens Nonocclusive splenic vein thrombosis Cephalic vein thrombosis Patient presented to the hospital with abdominal pain. History of alcohol use disorder CT abdomen and pelvis on admission showed acute interstitial edematous pancreatitis. Patient's alcohol withdrawal gradually worsened; was transferred to ICU on 05/12/[address] abdomen pelvis showed progressive worsening acute pancreatitis with possible developing necrotizing pancreatitis. Interval development of nonoccl usive thrombi within the splenic vein Patient transferred out of the ICU on 05/15/2024 Duplex of right upper extremity showed superficial venous thrombosis involving portion of cephalic vein Patient underwent alcohol withdrawal protocol with phenobarbital and clonidine. Both have been stopped as withdrawal symptoms subsided. Was treated with antibiotic with Zosyn, ceftriaxone/Flagyl. Stopped as no sign or symptoms of infection and patient is afebrile No need for repeat CT abdomen at this time if patient is clinically improving; will need CT abdomen in 2 to 4 weeks to rule out development of pseudocyst post- discharge For anticoagulation; Plan to continue anticoagulation for at least 3 months. Was started on heparin; switched over to Lovenox; called pt's pharmacy today eliquis cost for patient is 600 dollars a month. Pt doesn't want to go on lovenox, he is being started on warfarin, will need to monitor for next 1-2 days. Pt will need to f/u w/ coumadin clinic in 2-3 days of discharge. Mild abd pain w/ solid food per pt, lipase trending down, no tenderness on exam. Will scale back his diet to full liq and monitor. Pt doesn't want to go to rehab, would like to go home. Plan Disposition lives at home. Significant weakness due to the hospitalization. PTOT recommending rehab; awaiting placement. DVT prophylaxis lovenox Full code Time spent evaluating patient, direct bedside care, chart review, placing orders, interpretation of diagnostic studies, discussion with consultants, patient, as well as other required patient management activities is 50 minutes Please note the above document was generated using voice recognition software. It may contain grammatical, syntax or spelling errors. Any formal questions or concerns about the content, text or information contained within the body of this dictation should be directly addressed to the provider for clarification Admission and Anticipated Discharge Date Admission Date: May 11, 2024 Subjective Patient seen and examined at bedside. Comfortable; not in distress. Denies fever, chills, chest pain, shortness of breath, urinary symptoms. Reports mild abd pain after eating solids but none after liquid, lipase continues to downtrend, no tenderness on exam. Will scale back to full liq and continue to monitor. Physical Exam Physical Exam: Constitutional:Awake, oriented to self. Not in any distress Respiratory: normal respiratory effort, lungs clear to auscultation, no wheeze, rales, rhonchi. Normal insp/exp effort, no accessory muscle use Cardiovascular: RRR, no murmur, no edema Vessels: no JVD or carotid bruit Chest: normal inspection of chest Abdomen: Slightly distended, nontender. Musculoskeletal: no cyanosis or clubbing, extremities motor strength 5/5. Swelling, tenderness on right arm Skin: no rashes, warm and dry normal turgor Neurologic: PERRL, EOMI, moves all extremities Results & Data Results & Data Vital Signs (Past 12 Hours) Vital Signs Temp Pulse Resp BP Pulse Ox O2 Del Method 05/22/24 07:34 83 05/22/24 07:15 36.3 C L 109 H 16 133/88 93 Room Air
[2024-05-22] MEDS: WARFARIN SOD 5 MG TAB PO SCH (15:51)
[2024-05-22] MEDS: DICLOFENAC SOD 1% GEL 100 GM TUBE EXT SCH (16:50)
[2024-05-23 09:58] LABS: Hematocrit (blood only) 39.3 % (42.0-52.0); Hemoglobin 13.6 g/dl (14.0-18.0); Mean Corpuscular Hemoglobin 34.2 pg (25.0-34.0); Mean Corpuscular Hgb Conc 34.6 g/dL (32.0-36.0); Mean Corpuscular Volume 98.7 fL (80.0-100.0); Mean Platelet Volume 11.7 fL (9.4-12.4); Platelet Count 311 K/uL (130-400); RDW Coefficient of Variation 13.5 % (11.5-14.5); RDW Standard Deviation 49.6 fL (36.4-46.3); Red Blood Count 3.98 M/uL (4.70-6.10)
[2024-05-23 10:13] LABS: Creatinine Clr Calc Pharmacy 146.3 ml/min
[2024-05-23 10:22] LABS: INR 1.1 (0.9-1.1)
[2024-05-23] MEDS: WARFARIN SOD 7.5 MG TAB PO SCH (15:52)
[2024-05-23] MEDS: POLYETHYLENE (MIRALAX) 17 GM PACK PO PRN (15:56)
[2024-05-23 16:10] VITALS: RESP 18; TEMP 97.9
--- NOTE | 2024-05-23 16:29 | Hospitalist Progress Note ---
Date of Service May 23, 2024 Assessment & Plan (1) Acute pancreatitis: Plan: Acute alcoholic necrotizing pancreatitis Alcohol withdrawal Delirium tremens Nonocclusive splenic vein thrombosis Cephalic vein thrombosis Patient presented to the hospital with abdominal pain. History of alcohol use disorder CT abdomen and pelvis on admission showed acute interstitial edematous pancreatitis. Patient's alcohol withdrawal gradually worsened; was transferred to ICU on 05/12/[address] abdomen pelvis showed progressive worsening acute pancreatitis with possible developing necrotizing pancreatitis. Interval development of nonoccl usive thrombi within the splenic vein Patient transferred out of the ICU on 05/15/2024 Duplex of right upper extremity showed superficial venous thrombosis involving portion of cephalic vein Patient underwent alcohol withdrawal protocol with phenobarbital and clonidine. Both have been stopped as withdrawal symptoms subsided. Was treated with antibiotic with Zosyn, ceftriaxone/Flagyl. Stopped as no sign or symptoms of infection and patient is afebrile No need for repeat CT abdomen at this time if patient is clinically improving; will need CT abdomen in 2 to 4 weeks to rule out development of pseudocyst post- discharge For anticoagulation; Plan to continue anticoagulation for at least 3 months. Was started on heparin; switched over to Lovenox; called pt's pharmacy 05/22 eliquis cost for patient is 600 dollars a month. Pt doesn't want to go on lovenox, he is being started on warfarin 05/22, inr 1.1, increase warfarin dose to 7.5mg today, will need to monitor for next 1-2 days. Pt will need to f/u w/ coumadin clinic in 2-3 days of discharge. No abd pain w/ liquid food per pt, lipase trending down, no tenderness on exam. to soft diet in AM. Pt doesn't want to go to rehab, would like to go home. Plan Disposition lives at home. Significant weakness due to the hospitalization. PTOT recommending rehab; awaiting placement. DVT prophylaxis lovenox Full code Time spent evaluating patient, direct bedside care, chart review, placing orders, interpretation of diagnostic studies, discussion with consultants, patient, as well as other required patient management activities is 50 minutes Please note the above document was generated using voice recognition software. It may contain grammatical, syntax or spelling errors. Any formal questions or concerns about the content, text or information contained within the body of this dictation should be directly addressed to the provider for clarification Admission and Anticipated Discharge Date Admission Date: May 11, 2024 Subjective Patient seen and examined at bedside. Comfortable; not in distress. Denies fever, chills, chest pain, shortness of breath, urinary symptoms. Reports no abd pain while on liquid diet, continue for today, likely transition to soft diet in AM. Physical Exam Physical Exam: Constitutional:Awake, oriented to self. Not in any distress Respiratory: normal respiratory effort, lungs clear to auscultation, no wheeze, rales, rhonchi. Normal insp/exp effort, no accessory muscle use Cardiovascular: RRR, no murmur, no edema Vessels: no JVD or carotid bruit Chest: normal inspection of chest Abdomen: Slightly distended, nontender. Musculoskeletal: no cyanosis or clubbing, extremities motor strength 5/5. Swelling, tenderness on right arm Skin: no rashes, warm and dry normal turgor Neurologic: PERRL, EOMI, moves all extremities Results & Data Results & Data Vital Signs (Past 12 Hours) Vital Signs Temp Pulse Resp BP Pulse Ox O2 Del Method 05/23/24 16:08 36.6 C 77 18 149/100 H 94 Room Air 05/23/24 07:59 36.5 C 75 16 132/89 93 Room Air
--- NOTE | 2024-05-23 23:34 | Ultrasound Report ---
Exam(s): US VENOUS RIGHT LOWER EXTREMITY EXAM: US Duplex Right Lower Extremity Veins CLINICAL HISTORY: Reason for exam: pain. TECHNIQUE: Real-time duplex ultrasound scan of the right lower extremity veins integrating B-mode two-dimensional vascular structure, Doppler spectral analysis, color flow Doppler imaging and compression. COMPARISON: No relevant prior studies available. FINDINGS: Deep veins: Unremarkable. No DVT in the visualized common femoral, femoral, proximal deep femoral or popliteal veins. The veins demonstrate normal color flow, are normally compressible, with normal phasic flow and/or augmentation response. Superficial veins: Unremarkable. No thrombus in the visualized great saphenous vein. Soft tissues: No acute findings. No popliteal cyst. IMPRESSION: No evidence of deep venous thrombosis in the right lower extremity. Electronically signed by: Laith Roche MD 05/23/24 23:33 PM
--- NOTE | 2024-05-23 23:34 | XRay Report ---
Exam(s): XR RIGHT ANKLE, 3+ views EXAM: XR Right Ankle Complete, 3 or More Views CLINICAL HISTORY: Reason for exam: pain. TECHNIQUE: Frontal, lateral and oblique views of the right ankle. COMPARISON: No relevant prior studies available. FINDINGS: Bones/joints: Unremarkable. No acute fracture. No dislocation. Soft tissues: Unremarkable. Vasculature: There are vascular calcifications. IMPRESSION: No acute bony abnormality of the right ankle. Electronically signed by: Laith Roche MD 05/23/24 23:33 PM
[2024-05-24 07:15] LABS: BUN Creatinine Ratio 6.1 (10-20); Calcium 8.7 mg/dl (8.6-10.3); Creatinine Clr Calc Pharmacy 150.7 ml/min; Potassium 4.2 mmol/L (3.5-5.1)
[2024-05-24 07:18] LABS: INR 1.3 (0.9-1.1); Prothrombin Time 14.2 Seconds (9.0-12.0)
[2024-05-24 08:05] VITALS: BP 141/91; PULSE 70; O2SAT 92
--- NOTE | 2024-05-24 11:43 | Discharge Summary ---
Date of Service May 24, 2024 Admission HPI Per Admitting Provider 58-year-old male with no past medical history, presenting with abdominal pain. Patient states that he drinks 6-8 shots of alcohol about 3 times per week. Last drink was 2 days ago. Yesterday, patient started to have upper abdominal pain, pressure, which persisted till today. Denies fevers or chills, has intermittent nausea, no chest pain, shortness of breath, etc. Lipase 3000 CT abdomen pelvis: Acute interstitial edematous pancreatitis On exam, patient seen resting in bed, not in distress. Reports he still having upper epigastric and mid abdominal pain. Denies tremors, sweating, hallucinations, confusion. Admission Exam Per Admitting Provider General- oriented x 3, not in distress, speaks in sentences with no effort or accessory muscle use Head- atraumatic Eyes- PERRL, EOMI, anicteric ENT- oropharynx clear Neck- supple, no JVD, no adenopathy, no thyromegaly; carotids +2/2, no bruits appreciated Lungs- clear to auscultation bilaterally, no rales/wheezes Heart- normal rate, regular rhythm; no murmur, no gallop, no rub appreciated Abdomen- normal bowel sounds, nondistended, soft, Mild epigastric tenderness,, no masses or hepatosplenomegaly Extremities- no pretibial edema, no calf tenderness; peripheral pulses intact Mild bilateral hand tremors Neuro- alert, oriented x 3; CN 2-12 grossly intact; motor 5/5 bi laterally;sensation 100% on all extremities; no other gross focal neurologic deficits Skin- warm & dry Principal Diagnosis Acute alcoholic necrotizing pancreatitis Alcohol withdrawal Delirium tremens Nonocclusive splenic vein thrombosis Cephalic vein thrombosis Discharge Exam Constitutional:Awake, alert x 3. Not in any distress Respiratory: normal respiratory effort, lungs clear to auscultation, no wheeze, rales, rhonchi. Normal insp/exp effort, no accessory muscle use Cardiovascular: RRR, no murmur, no edema Vessels: no JVD or carotid bruit Chest: normal inspection of chest Abdomen: Slightly distended, nontender. Musculoskeletal: no cyanosis or clubbing, extremities motor strength 5/5. Swelling, tenderness on right arm Skin: no rashes, warm and dry normal turgor Neurologic: PERRL, EOMI, moves all extremities Discharge Data Allergies Allergy/AdvReac Type Severity Reaction Status Date / Time shellfish derived Allergy Severe Anaphylaxis Verified 05/11/24 08:44 avocado AdvReac Verified 05/21/24 12:33 Consultations 05/11/24 08:29 ED Decision to Admit Stat 05/11/24 11:35 Consult Gastroenterology Routine 05/12/24 03:51 Consult Multilith Operator Routine 05/15/24 09:52 Consult Hematology Routine Ordered Studies 05/11/24 07:20 CT Abd and Pelvis [CT abd pelvis IV con only] Stat 05/11/24 08:27 US gallbladder Stat 05/14/24 10:52 CT pancreas 3-phase wo/w con Routine 05/18/24 13:59 US venous duplex arm [US venous doppler UE RT] Urgent 05/23/24 22:08 US venous duplex leg [US venous doppler LE RT] Stat Hospital Course (1) Acute pancreatitis: 58 yo was managed for the following: Acute alcoholic necrotizing pancreatitis Alcohol withdrawal Delirium tremens Nonocclusive splenic vein thrombosis Cephalic vein thrombosis Patient presented to the hospital with abdominal pain. History of alcohol use disorder CT abdomen and pelvis on admission showed acute interstitial edematous pancreatitis. Patient's alcohol withdrawal gradually worsened; was transferred to ICU on 05/12/[address] abdomen pelvis showed progressive worsening acute pancreatitis with possible developing necrotizing pancreatitis. Interval development of nonocclusive thrombi within the splenic vein Patient transferred out of the ICU on 05/15/2024 Duplex of right upper extremity showed superficial venous thrombosis involving portion of cephalic vein Patient underwent alcohol withdrawal protocol with phenobarbital and clonidine. Both have been stopped as withdrawal symptoms subsided. Was treated with antibiotic with Zosyn, ceftriaxone/Flagyl. Stopped as no sign or symptoms of infection and patient is afebrile No need for repeat CT abdomen at this time if patient is clinically improving; will need CT abdomen in 2 to 4 weeks to rule out development of pseudocyst post- discharge For anticoagulation; Plan to continue anticoagulation for at least 3 months. Was started on heparin; switched over to Lovenox; called pt's pharmacy 05/22 [place] cost for patient is 600 dollars a month. Pt doesn't want to go on lovenox, he is being started on warfarin 05/22, inr 1.1, increase warfarin dose to 7.5mg 05/23, inr 05/24 is 1.3, will dc on lovenox bridge and warfarin. Pt will need to f/u w/ coumadin clinic in Sunday,its importance has been discussed with patient at bedside(adjusting coumadin dose, deciding on further lovenox doses, preventing over anticoagulation to prevent bleeding risk). Pt w/ no abd pain, lipase trending down, no tenderness on exam. c/w low fat/soft diet on dc. Pt doesn't want to go to rehab, would like to go home. Plan Disposition lives at home. Significant weakness due to the hospitalization. PTOT recommending rehab; pt would like to go home. DVT prophylaxis lovenox Full code Patient is being discharged to home with home health with following instructions at the point of discharge: Follow-up with your primary care physician within a week time and likely you will need labs CBC/CMP/magnesium/phosphorus. Recommend that you strictly avoid any alcohol. It is recommend that you remain on low-fat/soft diet for next 1 to 2 weeks before transitioning to regular consistency diet. If increasing abdominal pain or fever, report to emergency or your primary care office immediately. You were evaluated and managed for severe pancreatitis. You will need repeat CT scan of the abdomen in 2 to 4 weeks time to rule out complications due to pancreatitis. Coordinate with your PCP office to set up the test. You are also noted to have blood clot, hematology evaluated you while in the hospital, recommended anticoagulation for at least 3 months. You will be discharged on Lovenox for 3 days and warfarin at 7.5 mg daily. As discussed at the bedside, it is very important that you follow-up with the Coumadin clinic on Sunday for further evaluation/recommendation regarding further doses of Lovenox and dose adjustment of your Coumadin. Take your medications as prescribed. Please make sure that you are able to get your medications today by calling your pharmacy before you leave the hospital so that your treatment continuity is not broken. Time spent evaluating patient, direct bedside care, chart review, placing orders, interpretation of diagnostic studies, discussion with consultants, patient, as well as other required patient management activities is 50 minutes Please note the above document was generated using voice recognition software. It may contain grammatical, syntax or spelling errors. Any formal questions or concerns about the content, text or information contained within the body of this dictation should be directly addressed to the provider for clarification Home Health Attestation I certify that this patient is under my care and that I, or a physicians assistant sales manager working with me, had a face to-face encounter that meets the home health [id number] encounter requirements with this patient. The encounter with the patient was in whole, or in part, for the following medical condition, which is the primary reason for home health care (list medical condition): I certify that, based on my findings, the following services are medically necessary home health services: My clinical findings support the need for the above services because: Further, I certify that my clinical findings support that this patient is ho mebound (i.e. absences from home require considerable and taxing effort and are for medical reasons or latter-day services or infrequently or of short duration when for other reasons) because: Certification for Home Health Services: Based on the above findings, I certify that this patient is confined to the home and needs intermittent care home care, physical therapy and/or speech therapy or continues to need occupational therapy. The patient is under my care, and I have initiated the establishment of the plan of care. This patient will be followed by a physician who will periodically review the plan of care. 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 Recommend that you strictly avoid any alcohol. It is recommend that you remain on low-fat/soft diet for next 1 to 2 weeks before transitioning to regular consistency diet. If increasing abdominal pain or fever, report to emergency or your primary care office immediately. You were evaluated and managed for severe pancreatitis. You will need repeat CT scan of the abdomen in 2 to 4 weeks time to rule out complications due to pancreatitis. Coordinate with your PCP office to set up the test. You are also noted to have blood clot, hematology evaluated you while in the hospital, recommended anticoagulation for at least 3 months. You will be discharged on Lovenox for 3 days and warfarin at 7.5 mg daily. As discussed at the bedside, it is very important that you follow-up with the Coumadin clinic on Sunday for further evaluation/recommendation regarding further doses of Lovenox and dose adjustment of your Coumadin. Take your medications as prescribed. Please make sure that you are able to get your medications today by calling your pharmacy before you leave the hospital so that your treatment continuity is not broken. Pending Studies at Discharge: No Stand-Alone Forms: [facility] Medications and DC Order Prescriptions: New enoxaparin [Lovenox] 120 mg/0.8 mL Syringe 111 mg subcut Q12H 2 Days Qty: 2.96 0RF warfarin [Jantoven] 7.5 mg Tablet 7.5 mg PO DAILY@1600 Qty: 30 0RF diclofenac sodium [Voltaren Arthritis Pain] 1 % Gel 2 g EXT Q6H Qty: 100 0RF pantoprazole 40 mg Tablet,Delayed Release (Dr/Ec) 40 mg PO QAM Qty: 30 0RF folic acid 1 mg Tablet 1 mg PO QAM Qty: 30 0RF multivitamin with folic acid [Daily-Malvin (with folic acid)] 400 mcg Tablet 1 tab PO QAM Qty: 30 0RF thiamine HCl (vitamin B1) 100 mg Tablet 100 mg PO QAM Qty: 30 0RF oxycodone 5 mg Tablet 5 mg PO BID PRN (Reason: severe pain (scale score 7-10)) Qty: 10 0RF Continued multivitamin Tablet 1 tab PO DAILY Amino Acid Capsule 1 cap PO DAILY cholecalciferol (vitamin D3) [Vitamin D3] 25 mcg (1,000 unit) Tablet 25 mcg PO DAILY Discharge Orders: Discharge Order (Routine); Ordered 05/24/24 Ordered By: Fuad Brunson Admission Data Admit Date/Time: 05/11/24 08:50 Attending Provider: Fuad Brunson Admit Provider: Erwin Yin Primary Care Provider: Elena Kirkland Other Providers: Erwin Yin; Fausto Vallecillo; Santos Yi; Jane Romero; Alisa Ruiz; Rony Bello; Katie Soares; Chan Contreras; Sandor Snyder; Nafisa Barkley; Kathryn,No Attending; [facility]; [place],[facility]; [place],[facility]; [facility],; [facility]
== END 2024-05-24 15:26 | disposition home health service (06) | DRG 439 ==
LOC: ED 05:41 → 4W 08:50 → SUATTDRO 08:50 → 4W 09:51 → 1E 05-12 03:18 → 2E 05-16 14:59 → 3N 05-18 18:20